=== PATIENT | male | born 1935 | race Caucasian/White ===

== ENCOUNTER 2020-06-29 17:58 | Observation (INO) ==
[2020-06-29] MEDS ORDERED: dilTIAZem HCl 5 MG/ML 5 ML VIAL IV STA (18:31)
[2020-06-29] MEDS ORDERED: STAT IV Infusion **Titration per Protocol STA (18:31)
[2020-06-29] MEDS ORDERED: Heparin IV Adult Wt-Based Low-Dose WITH Bolus Protocol IV STA (18:32)
[2020-06-29] MEDS ORDERED: dilTIAZem HCL 125 MG in DEXTROSE 5% 100 ML IV SCH (18:45)
[2020-06-29] MEDS ORDERED: HEPARIN SODIUM/DEXTROSE 25,000 UNITS/500 ML BAG IV SCH (18:45)
--- NOTE | 2020-06-29 18:50 | Emergency Department Note ---
Impression & Plan Fatigue, Atrial fibrillation with rapid ventricular response ED Provider Note Provider: Greyson Toth MD DATE OF SERVICE: 06/29/2020 CHIEF COMPLAINT: Fatigue HISTORY OF PRESENT ILLNESS: Patient is a 84-year-old gentleman history of CAD with stenting in the 90s, aortic stenosis, hypertension, hyperlipidemia presented today stating he felt very fatigued today. states he barely got out of bed. Patient denies significant chest pain or chest pressure. Does report that his stated he seemed to breathing little bit on overnight but denies severe shortness of breath. Denies significant leg swelling. Denies any abdominal upset or fevers per denies URI symptoms. Denies history of similar symptoms. Patient denies any palpitations symptomatologies. Patient went to his PCPs office and EKG concerning for new onset atrial fibrillation with rapid ventricular response was sent here for further care. Patient states he has no history of A. fib as far as he is aware. Patient takes aspirin 3 times a week he reports. Patient states he initially had some concern that he could have worsening of his underlying aortic stenosis. Denies any falls or trauma. Denies any syncope. Patient follows with Dr. Weaver of cardiology. is otherwise well. He has completed 2 doses of the coronavirus vaccine. REVIEW OF SYSTEMS: A total of 10 review of systems was obtained and negative except as stated above in the HPI. PAST MEDICAL HISTORY: As noted above MEDICATIONS: Reviewed home medications, thrice weekly aspirin SOCIAL HISTORY: Lives at home with PHYSICAL EXAM: GENERAL: alert and oriented in no acute distress on stretcher Head: normocephalic and atraumatic EYES: No injection, discharge or icterus. NECK: Trachea midline. LUNGS: Airway patent. No retractions. Breath sounds clear HEART: Irregularly irregular tachycardic rate and rhythm. No chest wall tender ness ABDOMEN: Soft and non-tender, without guarding or rebound. SKIN: Acyanotic, warm, dry, without rashes EXTREMITIES: Without swelling, tenderness or deformity NEUROLOGICAL: No focal deficits. No aphasia. No facial droop or slurred speech. EK bpm atrial fibrillation with rapid ventricular spots. No PVC noted. No acute ST segment elevation noted. Some V3 through V5 slight T wave milady ening appreciated. QTc 437. CONTINUOUS CARDIAC MONITORING: was ordered and showed a heart rate of 70s- 150s to bpm in atrial fibrillation Patient's laboratory studies and imaging reviewed. Differential includes Premature contractions, electrolyte abnormality, cardiac dysrhythmia, thyroid dysfunction, pulmonary embolism, infection, gastrointestinal, as well as other pathologies. IMPRESSION/MEDICAL DECISION MAKING: Patient with new onset atrial fibrillation. Does not appear to be in compens ated heart failure. Denies significant chest pressure. Denies infectious symptoms. Given some Cardizem and Cardizem drip started. Discussed the patient start on heparin for anticoagulation given stroke risk. Chest x-ray obtained. Doubt this represents aortic dissection or PE. Covid test was completed but low suspicion for this. Unsure of exact etiology of onset of atrial for but this point. Troponin not elevated. No significant thyroid dysfunction or electrolyte abnormalities noted. Chest x-ray question some possible slight pulmonary edema but patient without significant symptoms at this point so will defer acute diuretics at this point. Likely his fatigue symptoms were exacerbat ed by his underlying aortic stenosis with a new onset atrial fibrillation. Will need transitioning to long-term anticoagulation and further cardiac consultation for rate versus rhythm control of his A. fib on long-term manner and further evaluation to see if progression of his aortic stenosis has occurred. Patient may also spontaneously convert out of A. fib with rate control medication here and will be monitored on telemetry in case this occurs. The hospitalist was contacted for further care. Patient was in agreement this plan. DIAGNOSIS: New onset atrial fibrillation with rapid ventricular response DISPOSITION: Hospitalist will evaluate Patient was agreeable with this plan. Critical Care I have personally spent 34 minutes of critical care time in the direct management of this patient. This includes bedside care, interpretation of diagnostic studies, and testing, discussion with consultants, patient, and , and other required patient management activities. These 34 minutes is in excess of all separately billable procedures. Past Med/Surg History Medical History Aortic stenosis gets echo every year to monitor > follows Dr. Weaver Dyslipidemia Gout Myocardial Infarction 1993 > RCA > Atenolol and Lipitor for this Osteoarthritis Prostate cancer 5 yrs ago > radiation Surgical History H/O heart artery stent 1998 > x1 > follows with Dr. Weaver History of colonoscopy History of tooth extraction History of total knee replacement left Family History Brother Colon cancer Social History Smoking Status: Never smoker Second Hand Exposure: No; Hx Alcohol Use: No Hx Substance Use: No Preferred Language: Arabic Communication Ability: Effective Imaging Services Director Required: No Beliefs That Will Affect Care: None Current Living Situation: Spouse Other Information That Helps Us Care for You: No Feels Safe at Home: Yes Safety Concerns: Feels Safe At This Time Assistive Devices: Glasses and Hearing Aid - Bilateral Allergies Allergies Allergy/AdvReac Type Severity Reaction Status Date / Time TIHSA Inhibitors AdvReac Mild COUGH Verified 06/29/20 19:05 Home Meds Home Medications Medication Instructions Recorded Confirmed aspirin [Aspir-81] 81 mg PO 3XWK 06/18/20 06/29/20 atenolol 12.5 mg PO HS 06/18/20 06/29/20 atorvastatin [Lipitor] 40 mg PO HS 06/18/20 06/29/20 indomethacin 25 mg PO DAILY PRN 06/18/20 06/29/20 Results & Data (ED) Vital Signs Vital Signs - 24 hr 06/29/20 18:07 06/29/20 18:19 06/29/20 18:21 Temperature 36.8 C Temperature Source Temporal Artery Scan Pulse Rate 144 H 126 H 134 H Pulse Rate from SpO2 Sensor 131 H 133 H Pulse Rhythm Irregular Respiratory Rate 20 34 H 24 Respiratory Effort / Characteristics Non-Labored Respiratory Depth Normal Blood Pressure 130/80 129/94 Blood Pressure Mean 96 105 Blood Pressure Position Sitting Pulse Oximetry 96 97 97 Oxygen Delivery Method Room Air Room Air Sepsis Recent Fever Within 48 Hours No Sepsis New/Unexplained Change in Mental Status No Sepsis Action Taken by Nursing No Action Required 06/29/20 18:30 06/29/20 18:31 06/29/20 18:43 Temperature Temperature Source Pulse Rate 124 H 123 H Pulse Rate from SpO2 Sensor 116 H 121 H Pulse Rhythm Respiratory Rate 18 13 Respiratory Effort / Characteristics Respiratory Depth Blood Pressure 98/81 L Blood Pressure Mean 86 Blood Pressure Position Pulse Oximetry 96 96 96 Oxygen Delivery Method Room Air Sepsis Recent Fever Within 48 Hours Sepsis New/Unexplained Change in Mental Status Sepsis Action Taken by Nursing 06/29/20 18:45 06/29/20 19:00 06/29/20 19:01 Temperature Temperature Source Pulse Rate 123 H 106 H 117 H Pulse Rate from SpO2 Sensor 122 H 109 H 111 H Pulse Rhythm Respiratory Rate 21 18 15 Respiratory Effort / Characteristics Respiratory Depth Blood Pressure 111/83 Blood Pressure Mean 92 Blood Pressure Position Pulse Oximetry 97 96 96 Oxygen Delivery Method Sepsis Recent Fever Within 48 Hours Sepsis New/Unexplained Change in Mental Status Sepsis Action Taken by Nursing 06/29/20 19:15 06/29/20 19:30 06/29/20 19:31 Temperature Temperature Source Pulse Rate 95 H 92 H 90 Pulse Rate from SpO2 Sensor 105 H 89 90 Pulse Rhythm Respiratory Rate 21 15 13 Respiratory Effort / Characteristics Respiratory Depth Blood Pressure 100/71 Blood Pressure Mean 80 Blood Pressure Position Pulse Oximetry 96 96 96 Oxygen Delivery Method Sepsis Recent Fever Within 48 Hours Sepsis New/Unexplained Change in Mental Status Sepsis Action Taken by Nursing 06/29/20 19:45 06/29/20 20:00 06/29/20 20:01 Temperature Temperature Source Pulse Rate 95 H 98 H 89 Pulse Rate from SpO2 Sensor 100 H 95 H 90 Pulse Rhythm Respiratory Rate 13 14 17 Respiratory Effort / Characteristics Respiratory Depth Blood Pressure 121/70 Blood Pressure Mean 87 Blood Pressure Position Pulse Oximetry 97 95 96 Oxygen Delivery Method Sepsis Recent Fever Within 48 Hours Sepsis New/Unexplained Change in Mental Status Sepsis Action Taken by Nursing 06/29/20 20:15 06/29/20 20:30 06/29/20 20:31 Temperature Temperature Source Pulse Rate 60 66 68 Pulse Rate from SpO2 Sensor 61 67 68 Pulse Rhythm Respiratory Rate 13 17 11 L Respiratory Effort / Characteristics Respiratory Depth Blood Pressure 105/64 Blood Pressure Mean 77 Blood Pressure Position Pulse Oximetry 96 96 96 Oxygen Delivery Method Sepsis Recent Fever Within 48 Hours Sepsis New/Unexplained Change in Mental Status Sepsis Action Taken by Nursing Laboratory Data Result diagrams: 06/29/20 18:53 06/29/20 18:53 Lab Results 06/29/20 06/29/20 06/29/20 Range/Units 18:53 18:53 18:53 WBC 12.12 H (4.8-10.8) K/uL RBC 4.75 (4.7-6.1) M/uL Hgb 14.2 (14.0-18.0) g/dL Hct 42.1 (42-52) % MCV 88.6 (80-100) fL MCH 29.9 (25-34) pg MCHC 33.7 (32-36) g/dL RDW Std Deviation 45.0 (36.4-46.3) fL RDW Coeff of [place] 13.8 (11.5-14.5) % Plt Count 133 (130-400) K/uL MPV 10.2 (7.4-10.4) fL Immature Gran % (Auto) 0.2 % Neut % (Auto) 43.9 % Lymph % (Auto) 48.3 % [place] % (Auto) 7.3 % Eos % (Auto) 0.2 % Baso % (Auto) 0.1 % Neut # (Auto) 5.33 (1.4-6.5) K/uL Lymph # (Auto) 5.85 H (1.2-3.4) K/uL [place] # (Auto) 0.89 H (0.11-0.59) K/uL Eos # (Auto) 0.02 (0-0.5) K/uL Baso # (Auto) 0.01 (0-0.2) K/uL Immature Gran # (Auto) 0.02 (0.00-0.02) K/uL PT 10.9 (9.0-12.0) Seconds INR 1.1 (0.9-1.1) APTT 23.9 (21.0-31.0) Seconds PTT Ratio 0.9 Sodium 141 (136-145) mmol/L Potassium 3.8 (3.5-5.1) mmol/L Chloride 110 H (98-107) mmol/L Carbon Dioxide 25 (21-32) mmol/L Anion Gap 6.0 (3-11) BUN 18 (7-18) mg/dl Creatinine 0.87 (0.6-1.4) mg/dl Est Cr Clr Drug Dosing 69.0 ml/min Est GFR ( Amer) 92.5 Est GFR (Non-Af Amer) 79.8 BUN/Creatinine Ratio 20.5 H (10-20) Glucose 105 H (70-99) mg/dl Calcium 9.2 (8.5-10.1) mg/dl Magnesium 2.0 (1.8-2.4) mg/dl Total Bilirubin 1.2 H (0.2-1) mg/dl AST 12 L (15-37) U/L ALT 19 (12-78) U/L Alkaline Phosphatase 70 (45-117) U/L Troponin I < 0.015 (0-0.045) ng/ml Total Protein 6.4 (6.4-8.2) gm/dl Albumin 3.6 (3.4-5.0) gm/dl Globulin 2.8 (2.5-4.0) gm/dl Albumin/Globulin Ratio 1.3 (0.9-2) TSH 2.140 (0.300-4.500) uIu/ml COVID-19 Eval Order SARS-CoV-2 (PCR) (Negative) Influenza Type A (PCR) (Neg) Influenza Type B (PCR) (Neg) RSV (RT-PCR) (Neg) 06/29/20 06/29/20 Range/Units 20:15 20:15 WBC (4.8-10.8) K/uL RBC (4.7-6.1) M/uL Hgb (14.0-18.0) g/dL Hct (42-52) % MCV (80-100) fL MCH (25-34) pg MCHC (32-36) g/dL RDW Std Deviation (36.4-46.3) fL RDW Coeff of [place] (11.5-14.5) % Plt Count (130-400) K/uL MPV (7.4-10.4) fL Immature Gran % (Auto) % Neut % (Auto) % Lymph % (Auto) % [place] % (Auto) % Eos % (Auto) % Baso % (Auto) % Neut # (Auto) (1.4-6.5) K/uL Lymph # (Auto) (1.2-3.4) K/uL [place] # (Auto) (0.11-0.59) K/uL Eos # (Auto) (0-0.5) K/uL Baso # (Auto) (0-0.2) K/uL Immature Gran # (Auto) (0.00-0.02) K/uL PT (9.0-12.0) Seconds INR (0.9-1.1) APTT (21.0-31.0) Seconds PTT Ratio Sodium (136-145) mmol/L Potassium (3.5-5.1) mmol/L Chloride (98-107) mmol/L Carbon Dioxide (21-32) mmol/L Anion Gap (3-11) BUN (7-18) mg/dl Creatinine (0.6-1.4) mg/dl Est Cr Clr Drug Dosing ml/min Est GFR ( Amer) Est GFR (Non-Af Amer) BUN/Creatinine Ratio (10-20) Glucose (70-99) mg/dl Calcium (8.5-10.1) mg/dl Magnesium (1.8-2.4) mg/dl Total Bilirubin (0.2-1) mg/dl AST (15-37) U/L ALT (12-78) U/L Alkaline Phosphatase (45-117) U/L Troponin I (0-0.045) ng/ml Total Protein (6.4-8.2) gm/dl Albumin (3.4-5.0) gm/dl Globulin (2.5-4.0) gm/dl Albumin/Globulin Ratio (0.9-2) TSH (0.300-4.500) uIu/ml COVID-19 Eval Order [facility]Rsv at [facility] SARS-CoV-2 (PCR) NEGATIVE (Negative) Influenza Type A (PCR) Negative (Neg) Influenza Type B (PCR) Negative (Neg) RSV (RT-PCR) Negative (Neg) Administered Medications Discontinued Medications Diltiazem HCl (Diltiazem Hcl 5 Mg/Ml 5 Ml Vial) 10 mg IV NOW STA Stop: 06/29/20 18:32 Last Admin: 06/29/20 18:57 Dose: 10 mg Documented by: [id number] Cosigned by: [id number] Heparin Sodium (Porcine) (Heparin Sod (Porcine) 1000 Unit/Ml 10 Ml Vial) Confirm Administered Dose 10,000 units .ROUTE .STK-MED ONE Stop: 06/29/20 19:21 Last Admin: 06/29/20 19:24 Dose: 4,000 units Documented by: [id number] Cosigned by: [id number] Heparin Sodium/Dextrose (Heparin Iv Low Dose With Bolus) 1 ea IV NOW STA; Protocol Stop: 06/29/20 18:33 Last Admin: 06/29/20 19:24 Dose: 1 ea Documented by: [id number] Diltiazem HCl 125 mg/ Dextrose 125 mls @ 5 mls/hr IV .Q24H [facility]; Protocol Stop: 07/29/20 18:44 Last Admin: 06/29/20 18:58 Dose: 5 mg/hr, 5 mls/hr Documented by: [id number] Cosigned by: [id number] Heparin Sodium/Dextrose (Heparin Sodium/Dextrose) 25,000 units in 500 mls @ 0.02 mls/hr IV .Q24H [facility]; Protocol Stop: 07/29/20 18:44 Last Admin: 06/29/20 19:23 Dose: 900 units/hr, 18 mls/hr Documented by: [id number] Cosigned by: [id number] Miscellaneous (Stat Iv Infusion Titration Per Protocol) 1 ea N/A NOW STA Stop: 06/29/20 18:32 Last Admin: 06/29/20 21:19 Dose: 1 ea Documented by: [id number] Imaging Data Radiologist's Impression: Chest X-Ray 06/29/20 18:31 XR chest 1V portable HISTORY: new afib, weakness COMPARISON: Chest 05/04/2015. FINDINGS: No pneumothorax. No pleural effusions. The heart is mildly enlarged. There are low lung volumes. There is perihilar interstitial/vascular thickening with hazy airspace opacities within the right upper lobe and left lung base. This could represent pulmonary edema or a viral pneumonia. There is mild elevation of the right hemidiaphragm. IMPRESSION: 1. Mild cardiomegaly. 2. Perihilar interstitial/vascular thickening consistent with mild congestive change. 2. Small hazy airspace opacities within the right upper lobe and left lung base. This could be due to the pulmonary congestion or a viral pneumonia. Follow-up chest x-ray is recommended to ensure resolution ACT 112: Negative or not required by law. Electronically signed by: Art Dang M.D. 06/29/2020 7:14 PM Discharge Plan Visit Data Chief Complaint: Cardiac Assessment Stated Complaint: CARDIAC ISSUE ED Provider: Greyson Toth Discharge Problem: Fatigue, Atrial fibrillation with rapid ventricular response Patient Disposition: Admitted As Inpatient Discharge Instructions Interventions: ED Discharge Assessment Last Done: 06/29/20 22:26 Discharge Problem: Fatigue Qualifiers: Fatigue type: unspecified Qualified Code(s): R53.83 - Other fatigue
[2020-06-29 19:05] LABS: Hematocrit (blood only) 42.1 % (42-52); Hemoglobin 14.2 g/dL (14.0-18.0); Mean Corpuscular Hemoglobin 29.9 pg (25-34); Mean Corpuscular Hgb Conc 33.7 g/dL (32-36); Mean Corpuscular Volume 88.6 fL (80-100); Mean Platelet Volume 10.2 fL (7.4-10.4); Platelet Count 133 K/uL (130-400); RDW Coefficient of Variation 13.8 % (11.5-14.5); Red Blood Count 4.75 M/uL (4.7-6.1); White Blood Count 12.12 K/uL (4.8-10.8)
--- NOTE | 2020-06-29 19:15 | XRay Report ---
XR chest 1V portable HISTORY: new afib, weakness COMPARISON: Chest 05/04/2015. FINDINGS: No pneumothorax. No pleural effusions. The heart is mildly enlarged. There are low lung vol umes. There is perihilar interstitial/vascular thickening with hazy airspace opacities within the rig ht upper lobe and left lung base. This could represent pulmonary edema or a viral pneumonia. There is mild elevation of the right hemidiaphragm. IMPRESSION: 1. Mild cardiomegaly. 2. Perihilar interstitial/vascular thickening consistent with mild congestive change. 2. Small hazy airspace opacities within the right upper lobe and left lung base. This could be due to the pulmonary congestion or a viral pneumonia. Follow-up chest x-ray is recommended to ensure resolu tion ACT 112: Negative or not required by law. Electronically signed by: Art Dang M.D. 06/29/2020 7:14 PM
[2020-06-29] MEDS ORDERED: HEPARIN SOD (PORCINE) 1000 UNIT/ML ONE (19:20)
[2020-06-29 19:21] LABS: Alanine Aminotransferase 19 U/L (12-78); Albumin Level 3.6 gm/dl (3.4-5.0); Aspartate Aminotransferase 12 U/L (15-37); BUN Creatinine Ratio 20.5 (10-20); Blood Urea Nitrogen 18 mg/dl (7-18); Calcium 9.2 mg/dl (8.5-10.1); Carbon Dioxide 25 mmol/L (21-32); Chloride 110 mmol/L (98-107); Est GFR (African American) 92.5; Est GFR (Non-African American) 79.8; Glucose 105 mg/dl (70-99); Potassium 3.8 mmol/L (3.5-5.1); Sodium 141 mmol/L (136-145)
[2020-06-29 19:22] LABS: INR 1.1 (0.9-1.1); Partial Thromboplastin Ratio 0.9; Partial Thromboplastin Time 23.9 Seconds (21.0-31.0); Prothrombin Time 10.9 Seconds (9.0-12.0)
[2020-06-29 19:32] LABS: Albumin Globulin Ratio 1.3 (0.9-2); Alkaline Phosphatase 70 U/L (45-117); Bilirubin,Total 1.2 mg/dl (0.2-1); Globulin 2.8 gm/dl (2.5-4.0); Total Protein 6.4 gm/dl (6.4-8.2); Troponin I < 0.015 ng/ml (0-0.045)
[2020-06-29 19:57] LABS: Basophils # (auto) 0.01 K/uL (0-0.2); Basophils % (auto) 0.1 %; Eosinophils # (auto) 0.02 K/uL (0-0.5); Eosinophils % (auto) 0.2 %; Immature Granulocytes # (auto) 0.02 K/uL (0.00-0.02); Immature Granulocytes % (auto) 0.2 %; Lymphocytes # (auto) 5.85 K/uL (1.2-3.4); Lymphocytes % (auto) 48.3 %; Monocytes # (auto) 0.89 K/uL (0.11-0.59); Monocytes % (auto) 7.3 %; Neutrophils # (auto) 5.33 K/uL (1.4-6.5); Neutrophils % (auto) 43.9 %
[2020-06-29 21:11] LABS: Influenza A virus by PCR Negative (Neg); Influenza B virus by PCR Negative (Neg); RSV by PCR Negative (Neg); SARS CoV2 RNA(COVID-19) InHosp NEGATIVE (Negative)
--- NOTE | 2020-06-29 21:44 | History and Physical Report ---
DATE OF ADMISSION: 06/29/2020 CHIEF COMPLAINT: Shortness of breath and weakness, rapid atrial fibrillation. HISTORY OF PRESENT ILLNESS: This is an 84-year-old male with past medical history significant for hyperlipidemia, CAD, moderate aortic valve stenosis, bicuspid aortic valve, gout, osteoarthritis, history of prostate cancer, presents with shortness of breath and weakness starting today. The patient was feeling weak and when he was ambulating, he got short of breath and lightheaded. So came to the hospital and found to be in rapid atrial fibrillation. In the ER, patient was started on Cardizem drip and heparin and currently converted back to sinus rhythm. Denies any chest pain. No cough, no fever, no chills, no headache, no blurred vision, no runny nose, no sore throat, no loss of sense of smell or taste. Appetite is okay. No nausea, no abdominal pain. Normal bowel and bladder movements. No swelling in the legs. Currently resting comfortably and hemodynamically stable. The patient was done with COVID shots in April. ALLERGIES: TISHA INHIBITORS. PAST MEDICAL HISTORY: As mentioned above. PAST SURGICAL HISTORY: Cardiac stent placement, colonoscopy, needle punch biopsy of prostate. MEDICATIONS: The patient is on aspirin 81 mg p.o. 3 times a week, atenolol 12.5 mg p.o. at bedtime, Lipitor 40 mg p.o. at bedtime, indomethacin 25 mg p.o. daily p.r.n. FAMILY HISTORY: Significant for brother has colon cancer. Maternal grandmother had colon cancer. Mother had cancer and heart disorder. Father had diabetes and heart disorder. Brother has depression, lung disorder. SOCIAL HISTORY: . Former smoker, quit in 1971, no drug use. REVIEW OF SYMPTOMS: As per HPI. Rest of review of systems negative. PHYSICAL EXAMINATION: GENERAL: The patient is of moderate build, not in acute distress. VITAL SIGNS: Temperature 36.8, pulse 140s when he came in, currently 60s, blood pressure 121/70, respiratory rate 13, oxygen 96% room air. HEENT: Pupils equal, round, reactive to light. Oral mucosa moist. NECK: No JVD, no neck masses. CARDIOVASCULAR: S1, S2, regular rate and rhythm, no murmur, no gallop. RESPIRATORY SYSTEM: Normal AP diameter. No accessory muscle use. No wheezing, no crackles. ABDOMEN: Soft, bowel sounds present, nontender. No distention. CENTRAL NERVOUS SYSTEM: Cranial nerves II-XII grossly intact. Nonfocal. EXTREMITIES: No edema, no erythema. LABORATORY DATA: WBC 12, hemoglobin 14.2, hematocrit 42.1, platelets 133. PT 10.9, INR 1.1, APTT 23.9. Sodium 141, potassium 3.8, chloride 110, bicarbonate 25, BUN 18, creatinine 0.8, serum glucose 105, calcium 9.2, magnesium 2, total bilirubin 1.2, AST 12, ALT 19, alkaline phosphatase 70. Troponin I less than 0.015. TSH is 2.4. IMAGING: Chest x-ray, mild cardiomegaly, perihilar, interstitial, vascular thickening consistent with mild congestive changes, small hazy air space opacity of the right upper lobe and left lung base, this could be due to pulmonary congestion or viral pneumonia. Followup chest x-ray is recommended. EKG: AFib with rapid ventricular response at rate of 121, no acute ST changes seen. ASSESSMENT AND PLAN: This is an 84-year-old male who presents shortness of breath, weakness and found to have rapid afib. 1. Rapid atrial fibrillation. ER started on iv heparin and Cardizem drip. Currently, converted back to sinus rhythm. We will continue the heparin and stop Cardizem.. Will place on IV Lopressor p.r.n. Continue his home atenolol. We will follow serial enzymes, echocardiogram, and consult cardiology in a.m. for further recommendations. 2. History of coronary artery disease status post stent, on aspirin, atenolol and statin. 3. History of gout, on indomethacin p.r.n. 4. History of hyperlipidemia, on statin. 5. Leukocytosis. Chest x-ray, questionable pneumonia. No ough. No fever. Possible pneumonia on ct chest preliminary report. Started on Rocephin and Doxycycline. 6. History of prostate cancer status post radiation treatment. Follow up with Urology and Radiation Oncology. 7. Deep venous thrombosis prophylaxis, on IV heparin. DISPOSITION: Closely monitor in the tele floor. Level 1 full code. Expect discharge home and follow with family doctor. Social service to help with discharge planning. [facility]ITALEl[facility]
[2020-06-29] MEDS ORDERED: METOPROLOL TARTRATE 1 MG/ML VIAL IV PRN (22:36)
[2020-06-29] MEDS ORDERED: POLYETHYLENE (MIRALAX) 17 GM PACK PO PRN (22:36)
[2020-06-29] MEDS ORDERED: ACETAMINOPHEN 325 MG TAB PO PRN (22:36)
[2020-06-29] MEDS ORDERED: Heparin IV Adult Wt-Based Standard *NO* Bolus Protocol IV ONE (22:36)
[2020-06-29] MEDS ORDERED: NITROGLYCERIN SL 0.4 MG/TAB TAB SL PRN (22:36)
[2020-06-29] MEDS ORDERED: ATORVASTATIN 40 MG TAB PO SCH (22:36)
[2020-06-29] MEDS ORDERED: ATENOLOL 25 MG TABLET PO SCH (22:36)
[2020-06-29] MEDS: HEPARIN SODIUM/DEXTROSE 25,000 UNITS/500 ML BAG IV SCH (23:24)
[2020-06-30] MEDS ORDERED: cefTRIAXone SODIUM 2,000 MG in DEXTROSE 5% 50 ML IV SCH (02:00)
[2020-06-30] MEDS: DOXYCYCLINE HYCLATE 100 MG in DEXTROSE 5% 100 ML IV SCH ×2 (03:03→15:27)
[2020-06-30 05:53] LABS: Hematocrit (blood only) 36.8 % (42-52); Hemoglobin 12.5 g/dL (14.0-18.0); Mean Corpuscular Hemoglobin 30.3 pg (25-34); Mean Corpuscular Volume 89.1 fL (80-100); Mean Platelet Volume 10.1 fL (7.4-10.4); Platelet Count 121 K/uL (130-400); RDW Standard Deviation 45.6 fL (36.4-46.3); Red Blood Count 4.13 M/uL (4.7-6.1); White Blood Count 9.77 K/uL (4.8-10.8)
[2020-06-30 06:12] LABS: Partial Thromboplastin Ratio 2.1
[2020-06-30 06:28] LABS: BUN Creatinine Ratio 21.9 (10-20); Calcium 8.2 mg/dl (8.5-10.1); Creatinine Clr Calc Pharmacy 76.5 ml/min; Est GFR (African American) 95.7; Est GFR (Non-African American) 82.6; Potassium 3.7 mmol/L (3.5-5.1)
[2020-06-30 07:19] LABS: Basophils # (auto) 0.01 K/uL (0-0.2); Basophils % (auto) 0.1 %; Eosinophils # (auto) 0.04 K/uL (0-0.5); Eosinophils % (auto) 0.4 %; Immature Granulocytes # (auto) 0.01 K/uL (0.00-0.02); Immature Granulocytes % (auto) 0.1 %; Lymphocytes # (auto) 6.25 K/uL (1.2-3.4); Monocytes # (auto) 0.47 K/uL (0.11-0.59); Monocytes % (auto) 4.8 %; Neutrophils # (auto) 2.99 K/uL (1.4-6.5); Neutrophils % (auto) 30.6 %; RBC Morphology Unremarkable
--- NOTE | 2020-06-30 08:06 | CT Scan Report ---
CT SCAN OF THE CHEST WITHOUT IV CONTRAST CLINICAL HISTORY: Dyspnea. COMPARISON STUDY: Chest x-ray dated 06/29/2020. TECHNIQUE: CT scan of the thorax was performed from the thoracic inlet to the upper abdomen. Images are reviewed in the axial, sagittal, and coronal planes. IV contrast was not administered for this ex amination as per the referring clinician. A dose lowering technique was utilized ad[facility] DOSE: 463.61 mGy.cm FINDINGS: Thyroid: Imaged portions of the thyroid gland are normal in size and attenuation. Thoracic aorta: There is atherosclerotic calcification of the thoracic aorta, which is normal in willie french and demonstrates standard 3-vessel arch anatomy. Heart: The heart is enlarged noting a moderate pericardial effusion. The coronary arteries are densel y calcified. Pulmonary trunk is dilated measuring 4.1 cm in diameter. This suggests pulmonary artery hypertension. Lungs and pleural spaces: Mild emphysematous change is noted throughout both lungs. There is diffuse intralobular septal thickening. Patchy groundglass consolidation is seen in the right upper and right lower lobes. No pleural effusion is identified. The trachea and central airways are clear. There are scattered calcified granulomas. Mediastinum: There is no mediastinal lymphadenopathy. Melissa: There are calcified left hilar lymph nodes. The melissa are not well assessed without IV contrast. Axillae: There is no axillary lymphadenopathy. Upper abdomen: There is a small hiatal hernia. The spleen is enlarged measuring at least 16 cm in [address] gth. There are scattered calcified splenic granulomas. There is ectasia of the celiac artery which me asures up to 12 mm. Skeletal structures: The skeletal structures are osteopenic. Degenerative change and hyperkyphosis is noted in the thoracic spine. Advanced spondylotic change is partially imaged in the lower cervical s pine. Arthritic change is noted in the shoulders. No lytic or blastic bony lesions are seen. IMPRESSION: 1. Emphysema. 2. Patchy groundglass consolidation is seen throughout the right upper and right lower lobes. This is typical in appearance for an infectious/inflammatory pneumonitis. Clinical correlation will be requi red and radiographic follow-up to resolution is recommended. 3. Cardiomegaly and moderate pericardial effusion. 4. Mild diffuse intralobular septal thickening suggests acute versus chronic congestive change and cl inical correlation will be required. 5. Marked splenomegaly. 6. Additional findings as above. ACT 112: Negative or not required by law. Electronically signed by: Krzysztof Tapia M.D. 06/30/2020 8:05 AM
[2020-06-30] MEDS ORDERED: ASPIRIN 81 MG ECTAB PO SCH (09:00)
--- NOTE | 2020-06-30 09:58 | Cardiology Consultation ---
Date of Consultation June 30, 2020 Assessment & Plan (1) Paroxysmal atrial fibrillation with rapid ventricular response: Patient is a an 84-year-old male followed routinely for moderate calcific aortic stenosis superimposed on bicuspid aortic valve, chronic stable ischemic heart disease, hypertension who presents with newly observed atrial fibrillation with rapid response symptomatic with exertional dyspnea. Episode may have been precipitated by pulmonary issue with abnormal CT scan suggestive of pneumonia. Patient has spontaneously converted back to sinus rhythm. No signs of myocardial ischemia by enzyme or EKG. Exam not consistent with congestive heart Echocardiogram essentially stable from prior studies with moderate aortic stenosis and preserved LV systolic function. The right ventricle was upper limits of normal in size with borderline elevation in pulmonary pressures Recommendations: Atenolol was recently reduced due to bradycardia arrhythmias. We will switch to metoprolol succinate at 12.5 mg twice per day initially Patient was appropriately anticoagulated with IV heparin with switch to Eliquis for long-term management patient with elevated chads vas 2 score of at least 4. Treatment of possible pulmonary infiltrate pneumonia to be discerned by primary service. Exam not consistent with congestive heart failure. Thromboembolic disease would be covered by current therapies. As noted may represent inciting cause though no hypoxia observed. (2) Chronic ischemic heart disease: (3) Bicuspid aortic valve: (4) Moderate aortic stenosis: History of Present Illness Reason for Consultation: Paroxysmal atrial fibrillation Requesting Physician: Dr. Cortés Attending Physician: Dejah Cortés, DO History of Present Illness Patient is an 84-year-old male with ongoing prior issues which include 1. Atherosclerotic coronary disease status post acute inferior wall myocardial infarction in 1993 with notable 100% RCA occlusion. He subsequently underwent repeat cardiac catheterization in 1998 after abnormal stress testing and underwent bare metal stenting to the circumflex obtuse marginal branch as well as PTCA of a recanalized mid right coronary artery. He notably had a residual 30% LAD. 2. Mild to Moderate aortic stenosis with functionally bicuspid aortic valve 3. Hyperlipidemia. 4. Prostate carcinoma s/p radiation therapy. 5. Gouty arthropathy. Patient presents having been admitted last evening after visit to her primary care physician with complaints of weakness fatigue and shortness of breath. EKG demonstrated atrial fibrillation with rapid response. Patient was seen in the emergency room and begun on treatment with spontaneous conversion to sinus rhythm overnight. He is currently without complaint. Does feel he has been chilled and more short of breath recently. Chest x-ray/CAT scan of the chest suggest possible pneumonia He denies fevers chills currently notes no chest pains, tachypalpitations, orthopnea. Has been taking medications as prescribed. No dizziness or lightheadedness. No bleeding difficulties. Appetite and weight have been generally stable. No sleep disturbances. Allergies Allergy/AdvReac Type Severity Reaction Status Date / Time TISHA Inhibitors AdvReac Mild COUGH Verified 06/29/20 19:05 Home Medications Medication Instructions Recorded Confirmed Type aspirin [Aspir-81] 81 mg PO 3XWK 06/18/20 06/29/20 History atenolol 12.5 mg PO HS 06/18/20 06/29/20 History atorvastatin [Lipitor] 40 mg PO HS 06/18/20 06/29/20 History indomethacin 25 mg PO DAILY PRN 06/18/20 06/29/20 History Patient History Medical History Aortic stenosis gets echo every year to monitor > follows Dr. Weaver Dyslipidemia Gout Myocardial Infarction 1993 > RCA > Atenolol and Lipitor for this Osteoarthritis Prostate cancer 5 yrs ago > radiation Surgical History H/O heart artery stent 1998 > x1 > follows with Dr. Weaver History of colonoscopy History of tooth extraction History of total knee replacement left Family History Brother Colon cancer Social History Smoking Status: Never smoker Second Hand Exposure: No; Hx Alcohol Use: No Hx Substance Use: No Preferred Language: Portuguese Communication Ability: Effective Packing Supervisor Required: No Beliefs That Will Affect Care: None Current Living Situation: Spouse Other Information That Helps Us Care for You: No Feels Safe at Home: Yes Safety Concerns: Feels Safe At This Time Assistive Devices: Glasses and Hearing Aid - Bilateral Review of Systems Review of Systems: All systems reviewed & are unremarkable except as noted in HPI & below Physical Exam Constitutional: WD/WN, vitals as above no acute distress Eyes: PERRL, conjunctivae normal, anicteric sclerae ENMT: external ear and nose normal, oropharynx normal Neck: trachea midline, no thyromegaly Respiratory: normal respiratory effort, lungs clear to auscultation Cardiovascular: Rate/Rhythm: regular rate and regular rhythm Heart Sounds: normal S1, normal S2 and + murmur (Grade 2/6 systolic murmur no diastolic murmur); no gallop Palpation: normal PMI Vessels: normal carotid upstroke and radial pulses present; no JVD and no carotid bruit Extremities: no edema Gastrointestinal (Abdomen): normal bowel sounds, soft, nontender, no hepatosplenomegaly Musculoskeletal: no cyanosis or clubbing, extremities motor strength 5/5 Skin: no rashes, warm and dry Neurologic: PERRL, EOMI, accommodation nl, no face palsy, no dysarthria Psychiatric: A+Ox3, euthymic affect Results & Data ([facility]) Vital Signs (Past 12 Hours) Vital Signs Temp Pulse Resp BP Pulse Ox 06/30/20 07:43 36.9 C 63 18 111/71 96 06/30/20 03:12 36.3 C L 66 18 96/58 L 96 Laboratory Results Laboratory Results - last 24 hr 06/29/20 06/29/20 06/29/20 18:53 18:53 18:53 WBC 12.12 H RBC 4.75 Hgb 14.2 Hct 42.1 MCV 88.6 MCH 29.9 MCHC 33.7 RDW Std Deviation 45.0 RDW Coeff of [place] 13.8 Plt Count 133 MPV 10.2 Immature Gran % (Auto) 0.2 Neut % (Auto) 43.9 Lymph % (Auto) 48.3 [place] % (Auto) 7.3 Eos % (Auto) 0.2 Baso % (Auto) 0.1 Neut # (Auto) 5.33 Lymph # (Auto) 5.85 H [place] # (Auto) 0.89 H Eos # (Auto) 0.02 Baso # (Auto) 0.01 Immature Gran # (Auto) 0.02 RBC Morphology PT 10.9 INR 1.1 APTT 23.9 PTT Ratio 0.9 Sodium 141 Potassium 3.8 Chloride 110 H Carbon Dioxide 25 Anion Gap 6.0 BUN 18 Creatinine 0.87 Est Cr Clr Drug Dosing 69.0 Est GFR ( Amer) 92.5 Est GFR (Non-Af Amer) 79.8 BUN/Creatinine Ratio 20.5 H Glucose 105 H Calcium 9.2 Magnesium 2.0 Total Bilirubin 1.2 H AST 12 L ALT 19 Alkaline Phosphatase 70 Troponin I < 0.015 Total Protein 6.4 Albumin 3.6 Globulin 2.8 Albumin/Globulin Ratio 1.3 Procalcitonin TSH 2.140 COVID-19 Eval Order SARS-CoV-2 (PCR) Influenza Type A (PCR) Influenza Type B (PCR) RSV (RT-PCR) 06/29/20 06/29/20 06/30/20 20:15 20:15 05:40 WBC RBC Hgb Hct MCV MCH MCHC RDW Std Deviation RDW Coeff of [place] Plt Count MPV Immature Gran % (Auto) Neut % (Auto) Lymph % (Auto) Burnett % (Auto) Eos % (Auto) Baso % (Auto) Neut # (Auto) Lymph # (Auto) [place] # (Auto) Eos # (Auto) Baso # (Auto) Immature Gran # (Auto) RBC Morphology PT INR APTT 55.0 H* PTT Ratio 2.1 Sodium Potassium Chloride Carbon Dioxide Anion Gap BUN Creatinine Est Cr Clr Drug Dosing Est GFR ( Amer) Est GFR (Non-Af Amer) BUN/Creatinine Ratio Glucose Calcium Magnesium Total Bilirubin AST ALT Alkaline Phosphatase Troponin I Total Protein Albumin Globulin Albumin/Globulin Ratio Procalcitonin TSH COVID-19 Eval Order CovFluRsv at [facility] SARS-CoV-2 (PCR) NEGATIVE Influenza Type A (PCR) Negative Influenza Type B (PCR) Negative RSV (RT-PCR) Negative 06/30/20 06/30/20 06/30/20 05:40 05:40 05:40 WBC 9.77 RBC 4.13 L Hgb 12.5 L Hct 36.8 L MCV 89.1 MCH 30.3 MCHC 34.0 RDW Std Deviation 45.6 RDW Coeff of [place] 14.0 Plt Count 121 L MPV 10.1 Immature Gran % (Auto) 0.1 Neut % (Auto) 30.6 Lymph % (Auto) 64.0 Burnett % (Auto) 4.8 Eos % (Auto) 0.4 Baso % (Auto) 0.1 Neut # (Auto) 2.99 Lymph # (Auto) 6.25 H Burnett # (Auto) 0.47 Eos # (Auto) 0.04 Baso # (Auto) 0.01 Immature Gran # (Auto) 0.01 RBC Morphology Unremarkable PT INR APTT PTT Ratio Sodium 142 Potassium 3.7 Chloride 110 H Carbon Dioxide 29 Anion Gap 3.0 BUN 18 Creatinine 0.80 Est Cr Clr Drug Dosing 76.5 Est GFR ( Amer) 95.7 Est GFR (Non-Af Amer) 82.6 BUN/Creatinine Ratio 21.9 H Glucose 112 H Calcium 8.2 L Magnesium 2.0 Total Bilirubin AST ALT Alkaline Phosphatase Troponin I < 0.015 Total Protein Albumin Globulin Albumin/Globulin Ratio Procalcitonin TSH COVID-19 Eval Order SARS-CoV-2 (PCR) Influenza Type A (PCR) Influenza Type B (PCR) RSV (RT-PCR) 06/30/20 06/30/20 08:17 10:48 WBC RBC Hgb Hct MCV MCH MCHC RDW Std Deviation RDW Coeff of [place] Plt Count MPV Immature Gran % (Auto) Neut % (Auto) Lymph % (Auto) [place] % (Auto) Eos % (Auto) Baso % (Auto) Neut # (Auto) Lymph # (Auto) Burnett # (Auto) Eos # (Auto) Baso # (Auto) Immature Gran # (Auto) RBC Morphology PT INR APTT PTT Ratio Sodium Potassium Chloride Carbon Dioxide Anion Gap BUN Creatinine Est Cr Clr Drug Dosing Est GFR ( Amer) Est GFR (Non-Af Amer) BUN/Creatinine Ratio Glucose Calcium Magnesium Total Bilirubin AST ALT Alkaline Phosphatase Troponin I < 0.015 Total Protein Albumin Globulin Albumin/Globulin Ratio Procalcitonin < 0.05 TSH COVID-19 Eval Order SARS-CoV-2 (PCR) Influenza Type A (PCR) Influenza Type B (PCR) RSV (RT-PCR)
--- NOTE | 2020-06-30 14:23 | Electrocardiogram Report ---
Test Reason : Blood Pressure : / mmHG Vent. Rate : 121 BPM Atrial Rate : 122 BPM P-R Int : 000 ms QRS Dur : 096 ms QT Int : 308 ms P-R-T Axes : 000 032 036 degrees QTc Int : 437 ms Atrial fibrillation with rapid ventricular response Abnormal ECG No previous ECGs available Confirmed by Christopher Owusu ([id number]) on 06/30/2020 2:23:22 PM Referred By: Rahul Post Confirmed By:Hans Owusu
--- NOTE | 2020-06-30 14:31 | Hospitalist Progress Note ---
Date of Service June 30, 2020 Assessment & Plan Admission and Anticipated Discharge Date Admission Date: June 29, 2020 Results & Data Results & Data ([facility]) Vital Signs (Past 12 Hours) Vital Signs Temp Pulse Resp BP BP Pulse Ox 06/30/20 11:40 36.7 C 63 18 120/73 96 06/30/20 07:43 36.9 C 63 18 111/71 96 06/30/20 03:12 36.3 C L 66 18 96/58 L 96 Laboratory Results Short CBC 06/29/20 06/30/20 Range/Units 18:53 05:40 WBC 12.12 H 9.77 (4.8-10.8) K/uL Hgb 14.2 12.5 L (14.0-18.0) g/dL Hct 42.1 36.8 L (42-52) % Plt Count 133 121 L (130-400) K/uL BMP 06/29/20 06/30/20 18:53 05:40 Sodium 141 142 Potassium 3.8 3.7 Chloride 110 H 110 H Carbon Dioxide 25 29 BUN 18 18 Creatinine 0.87 0.80 Glucose 105 H 112 H Calcium 9.2 8.2 L Cardiac Enzymes 06/29/20 06/30/20 06/30/20 Range/Units 18:53 05:40 10:48 Troponin I < 0.015 < 0.015 < 0.015 (0-0.045) ng/ml Liver Function 06/29/20 Range/Units 18:53 Total Bilirubin 1.2 H (0.2-1) mg/dl AST 12 L (15-37) U/L ALT 19 (12-78) U/L Alkaline Phosphatase 70 (45-117) U/L Albumin 3.6 (3.4-5.0) gm/dl Medications Administered Current Inpatient Medications Acetaminophen (Acetaminophen 325 Mg Tab) 650 mg PO Q4H PRN PRN Reason: Pain or Fever Stop: 07/29/20 22:35 Aspirin (Aspirin 81 Mg Ectab) 81 mg PO [id number] [facility] Stop: 07/30/20 08:59 Last Admin: 06/30/20 08:39 Dose: 81 mg Documented by: Atorvastatin Calcium (Atorvastatin 40 Mg Tab) 40 mg PO HS [place] Stop: 07/29/20 22:35 Last Admin: 06/30/20 00:42 Dose: 40 mg Documented by: Heparin Sodium/Dextrose (Heparin Sodium/Dextrose) 25,000 units in 500 mls @ 28 mls/hr IV .[id number] [facility]; Protocol Stop: 07/29/20 22:35 Last Titration: 06/30/20 06:46 Dose: 1,400 units/hr, 28 mls/hr Documented by: Ceftriaxone Sodium 2,000 mg/ (Dextrose) 70 mls @ 100 mls/hr IV Q24H [facility]; Protocol Stop: 07/07/20 01:59 Last Infusion: 06/30/20 03:03 Dose: Infused Documented by: Doxycycline Hyclate 100 mg/ (Dextrose) 110 mls @ 50 mls/hr IV Q12H [facility] Stop: 07/07/20 02:59 Last Infusion: 06/30/20 06:46 Dose: Infused Documented by: Metoprolol Succinate (Metoprolol Succ 25mg Ext Rel Tab) 12.5 mg PO QPM [facility] Stop: 07/30/20 20:59 Metoprolol Tartrate (Metoprolol Tartrate 1 Mg/Ml Vial) 5 mg IV Q6 PRN PRN Reason: Tachycardia Stop: 07/29/20 22:35 Nitroglycerin (Nitroglycerin Sl 0.4 Mg/Tab Tab) 0.4 mg SL UD PRN PRN Reason: Chest Pain Stop: 07/29/20 22:35 Polyethylene Glycol (Polyethylene (Miralax) 17 Gm Pack) 17 gm PO DAILY PRN PRN Reason: Constipation Stop: 07/29/20 22:35
--- NOTE | 2020-06-30 15:20 | Electrocardiogram Report ---
Test Reason : Blood Pressure : / mmHG Vent. Rate : 060 BPM Atrial Rate : 060 BPM P-R Int : 172 ms QRS Dur : 102 ms QT Int : 492 ms P-R-T Axes : 054 000 071 degrees QTc Int : 492 ms Sinus rhythm with occasional Premature ventricular complexes Incomplete right bundle branch block Possible Inferior infarct (cited on or before 29-JUN-2020) Abnormal ECG When compared with ECG of 29-JUN-2020 18:17, (unconfirmed) Sinus rhythm has replaced Atrial fibrillation Vent. rate has decreased BY 61 BPM Incomplete right bundle branch block is now Present Confirmed by Christopher Owusu ([id number]) on 06/30/2020 3:20:07 PM Referred By: Rahul Post Confirmed By:Hans Owusu
[2020-06-30] MEDS: HEPARIN SODIUM/DEXTROSE 25,000 UNITS/500 ML BAG IV SCH (15:23)
[2020-06-30] MEDS ORDERED: APIXABAN 5 MG TABLET PO STA (17:48)
--- NOTE | 2020-06-30 17:56 | Discharge Summary ---
Date of Service June 30, 2020 Admission HPI Per Admitting Provider HISTORY OF PRESENT ILLNESS: This is an 84-year-old male with past medical history significant for hyperlipidemia, CAD, moderate aortic valve stenosis, bicuspid aortic valve, gout, osteoarthritis, history of prostate cancer, presents with shortness of breath and weakness starting today. The patient was feeling weak and when he was ambulating, he got short of breath and lightheaded. So came to the hospital and found to be in rapid atrial fibrillation. In the ER, patient was started on Cardizem drip and heparin and currently converted back to sinus rhythm. Denies any chest pain. No cough, no fever, no chills, no headache, no blurred vision, no runny nose, no sore throat, no loss of sense of smell or taste. Appetite is okay. No nausea, no abdominal pain. Normal bowel and bladder movements. No swelling in the legs. Currently resting comfortably and hemodynamically stable. The patient was done with COVID shots in April. Admission Exam Per Admitting Provider PHYSICAL EXAMINATION: GENERAL: The patient is of moderate build, not in acute distress. VITAL SIGNS: Temperature 36.8, pulse 140s when he came in, currently 60s, blood pressure 121/70, respiratory rate 13, oxygen 96% room air. HEENT: Pupils equal, round, reactive to light. Oral mucosa moist. NECK: No JVD, no neck masses. CARDIOVASCULAR: S1, S2, regular rate and rhythm, no murmur, no gallop. RESPIRATORY SYSTEM: Normal AP diameter. No accessory muscle use. No wheezing, no crackles. ABDOMEN: Soft, bowel sounds present, nontender. No distention. CENTRAL NERVOUS SYSTEM: Cranial nerves II-XII grossly intact. Nonfocal. EXTREMITIES: No edema, no erythema. Principal Diagnosis Community-acquired pneumonia Paroxysmal atrial fibrillation with rapid ventricular response Discharge Exam CONSTITUTIONAL: WNWD, vitals stable, oxygenating well on room air, generally well-appearing EYES: normal conjunctivae, no scleral icterus ENT: external ear and nose normal, MMM RESPIRATORY: fine crackles to left lower lobe on auscultation, no rales or wheezes, normal respiratory effort CARDIOVASCULAR: regular rate and rhythm, 3/6 MARIAELENA at left sternal border heard on auscultation, no gallops or rubs, no JVD, no peripheral edema GASTROINTESTINAL: soft, nontender, nondistended. MUSCULOSKELETAL: strength 5/5 throughout, head is normocephalic and atraumatic SKIN: warm and dry NEUROLOGIC: CN 2-12 grossly intact, normal cognition, normal speech, no tremor, no gross focal deficits. PSYCHIATRIC: alert cooperative and oriented to person, place and time. Discharge Data Allergies Allergy/AdvReac Type Severity Reaction Status Date / Time TISHA Inhibitors AdvReac Mild COUGH Verified 06/29/20 19:05 Consultations 06/29/20 19:56 ED Decision to Admit Stat 06/30/20 08:00 Consult Cardiology Routine Ordered Studies Laboratory Results WBC 9.77 K/uL (4.8-10.8) 06/30/20 05:40 RBC 4.13 M/uL (4.7-6.1) L 06/30/20 05:40 Hgb 12.5 g/dL (14.0-18.0) L 06/30/20 05:40 Hct 36.8 % (42-52) L 06/30/20 05:40 MCV 89.1 fL (80-100) 06/30/20 05:40 MCH 30.3 pg (25-34) 06/30/20 05:40 MCHC 34.0 g/dL (32-36) 06/30/20 05:40 RDW Std Deviation 45.6 fL (36.4-46.3) 06/30/20 05:40 RDW Coeff of [place] 14.0 % (11.5-14.5) 06/30/20 05:40 Plt Count 121 K/uL (130-400) L 06/30/20 05:40 MPV 10.1 fL (7.4-10.4) 06/30/20 05:40 Immature Gran % (Auto) 0.1 % 06/30/20 05:40 Neut % (Auto) 30.6 % 06/30/20 05:40 Lymph % (Auto) 64.0 % 06/30/20 05:40 [place] % (Auto) 4.8 % 06/30/20 05:40 Eos % (Auto) 0.4 % 06/30/20 05:40 Baso % (Auto) 0.1 % 06/30/20 05:40 Neut # (Auto) 2.99 K/uL (1.4-6.5) 06/30/20 05:40 Lymph # (Auto) 6.25 K/uL (1.2-3.4) H 06/30/20 05:40 [place] # (Auto) 0.47 K/uL (0.11-0.59) 06/30/20 05:40 Eos # (Auto) 0.04 K/uL (0-0.5) 06/30/20 05:40 Baso # (Auto) 0.01 K/uL (0-0.2) 06/30/20 05:40 Immature Gran # (Auto) 0.01 K/uL (0.00-0.02) 06/30/20 05:40 RBC Morphology Unremarkable 06/30/20 05:40 PT 10.9 Seconds (9.0-12.0) 06/29/20 18:53 INR 1.1 (0.9-1.1) 06/29/20 18:53 APTT 55.0 Seconds (21.0-31.0) H* 06/30/20 05:40 PTT Ratio 2.1 06/30/20 05:40 Sodium 142 mmol/L (136-145) 06/30/20 05:40 Potassium 3.7 mmol/L (3.5-5.1) 06/30/20 05:40 Chloride 110 mmol/L (98-107) H 06/30/20 05:40 Carbon Dioxide 29 mmol/L (21-32) 06/30/20 05:40 Anion Gap 3.0 (3-11) 06/30/20 05:40 BUN 18 mg/dl (7-18) 06/30/20 05:40 Creatinine 0.80 mg/dl (0.6-1.4) 06/30/20 05:40 Est Cr Clr Drug Dosing 76.5 ml/min 06/30/20 05:40 Est GFR ( Amer) 95.7 06/30/20 05:40 Est GFR (Non-Af Amer) 82.6 06/30/20 05:40 BUN/Creatinine Ratio 21.9 (10-20) H 06/30/20 05:40 Glucose 112 mg/dl (70-99) H 06/30/20 05:40 Calcium 8.2 mg/dl (8.5-10.1) L 06/30/20 05:40 Magnesium 2.0 mg/dl (1.8-2.4) 06/30/20 05:40 Total Bilirubin 1.2 mg/dl (0.2-1) H 06/29/20 18:53 AST 12 U/L (15-37) L 06/29/20 18:53 ALT 19 U/L (12-78) 06/29/20 18:53 Alkaline Phosphatase 70 U/L (45-117) 06/29/20 18:53 Troponin I < 0.015 ng/ml (0-0.045) 06/30/20 10:48 Total Protein 6.4 gm/dl (6.4-8.2) 06/29/20 18:53 Albumin 3.6 gm/dl (3.4-5.0) 06/29/20 18:53 Globulin 2.8 gm/dl (2.5-4.0) 06/29/20 18:53 Albumin/Globulin Ratio 1.3 (0.9-2) 06/29/20 18:53 Procalcitonin < 0.05 ng/ml (0-0.5) 06/30/20 08:17 TSH 2.140 uIu/ml (0.300-4.500) 06/29/20 18:53 COVID-19 Eval Order CovFluRsv at [facility] 06/29/20 20:15 SARS-CoV-2 (PCR) NEGATIVE (Negative) 06/29/20 20:15 Influenza Type A (PCR) Negative (Neg) 06/29/20 20:15 Influenza Type B (PCR) Negative (Neg) 06/29/20 20:15 RSV (RT-PCR) Negative (Neg) 06/29/20 20:15 Impressions Chest X-Ray 06/29/20 18:31 XR chest 1V portable HISTORY: new afib, weakness COMPARISON: Chest 05/04/2015. FINDINGS: No pneumothorax. No pleural effusions. The heart is mildly enlarged. There are low lung volumes. There is perihilar interstitial/vascular thickening with hazy airspace opacities within the right upper lobe and left lung base. This could represent pulmonary edema or a viral pneumonia. There is mild elevation of the right hemidiaphragm. IMPRESSION: 1. Mild cardiomegaly. 2. Perihilar interstitial/vascular thickening consistent with mild congestive change. 2. Small hazy airspace opacities within the right upper lobe and left lung base. This could be due to the pulmonary congestion or a viral pneumonia. Follow-up chest x-ray is recommended to ensure resolution ACT 112: Negative or not required by law. Electronically signed by: Art Dang M.D. 06/29/2020 7:[address] 06/29/20 20:40 CT SCAN OF THE CHEST WITHOUT IV CONTRAST CLINICAL HISTORY: Dyspnea. COMPARISON STUDY: Chest x-ray dated 06/29/2020. TECHNIQUE: CT scan of the thorax was performed from the thoracic inlet to the upper abdomen. Images are reviewed in the axial, sagittal, and coronal planes. IV contrast was not administered for this examination as per the referring clinician. A dose lowering technique was utilized adhering to the principles of ALARA. CT DOSE: 463.61 mGy.cm FINDINGS: Thyroid: Imaged portions of the thyroid gland are normal in size and attenuation. Thoracic aorta: There is atherosclerotic calcification of the thoracic aorta, which is normal in caliber and demonstrates standard 3-vessel arch anatomy. Heart: The heart is enlarged noting a moderate pericardial effusion. The coronary arteries are densely calcified. Pulmonary trunk is dilated measuring 4.1 cm in diameter. This suggests pulmonary artery hypertension. Lungs and pleural spaces: Mild emphysematous change is noted throughout both lungs. There is diffuse intralobular septal thickening. Patchy groundglass consolidation is seen in the right upper and right lower lobes. No pleural effusion is identified. The trachea and central airways are clear. There are scattered calcified granulomas. Mediastinum: There is no mediastinal lymphadenopathy. Calin: There are calcified left hilar lymph nodes. The calin are not well assessed without IV contrast. Axillae: There is no axillary lymphadenopathy. Upper abdomen: There is a small hiatal hernia. The spleen is enlarged measuring at least 16 cm in length. There are scattered calcified splenic granulomas. There is ectasia of the celiac artery which measures up to 12 mm. Skeletal structures: The skeletal structures are osteopenic. Degenerative change and hyperkyphosis is noted in the thoracic spine. Advanced spondylotic change is partially imaged in the lower cervical spine. Arthritic change is noted in the shoulders. No lytic or blastic bony lesions are seen. IMPRESSION: 1. Emphysema. 2. Patchy groundglass consolidation is seen throughout the right upper and right lower lobes. This is typical in appearance for an infectious/inflammatory pneumonitis. Clinical correlation will be required and radiographic follow-up to resolution is recommended. 3. Cardiomegaly and moderate pericardial effusion. 4. Mild diffuse intralobular septal thickening suggests acute versus chronic congestive change and clinical correlation will be required. 5. Marked splenomegaly. 6. Additional findings as above. ACT 112: Negative or not required by law. Electronically signed by: Krzysztof Tapia M.D. 06/30/2020 8:05 AM Hospital Course (1) Paroxysmal atrial fibrillation with rapid ventricular response: (2) Community acquired pneumonia: (3) Moderate aortic stenosis: (4) Bicuspid aortic valve: (5) Chronic ischemic heart disease: The patient is an 84-year-old man who presented with acute onset shortness of breath, weakness who was found to have rapid atrial fibrillation on EKG. In the ER he was started on IV heparin and a Cardizem drip and subsequently converted back into sinus rhythm remaining there throughout the remainder of his hospitalization. Once he converted into sinus rhythm his symptoms improved considerably and ultimately resolved. He was also found on CT of the chest to have infiltrates consistent with pneumonia. Although he did not report suffering from respiratory symptoms, he did report chills 2 nights prior to arrival. He was started on a course of antibiotic therapy which will be continued in the outpatient setting. Cardiology was consulted and recommended prolonged anticoagulation given [id number] score. His heparin was switched to Eliquis at discharge. Although the patient does have aortic stenosis, the atrial fibrillation episode was considered secondary to his pulmonary infection. Outpatient follow-up with cardiology was recommended in 4 to 6 weeks to consider long-term management of atrial fibrillation. At time of discharge she was hemodynamically stable and afebrile and tolerating p.o. He was mentating and ambulating at baseline and oxygenating well on room air. He was not working to breathe and had no evidence of conversational dyspnea. He was discharged home in stable condition with close primary care follow-up recommended. Repeat chest x-ray in 4 to 6 weeks was recommended to ensure complete resolution of pneumonia. Of note the patient has received both injections of the Covid vaccination series approximately 6 weeks ago and his Covid test in the ER was negative. He was swabbed for influenza a and B which was also negative and RSV PCR which was also negative. Total Time Total Time Spent Total Time Spent (In Minutes): 60 Total Time Includes: Examination of the Patient, Discharge Planning, Medication Reconciliation and Communication With Other Providers Discharge Plan Discharge Items Patient Disposition: Home - Self-Care Reason For Visit: SOB Discharge Diagnosis: Community-acquired pneumonia Paroxysmal atrial fibrillation with rapid ventricular response Condition on Discharge: Good Activity: Resume your previous activity Non-emergency contact: Primary Care Provider Call non-emergency contact if: you have any medication questions, your symptoms worsen and you have a fever Follow-up/Referrals: Rahul Post DO [Primary Care Provider] - Diet: Heart Healthy Addtl Attending Provider Instructions: Please take all medications as instructed in discharge list below. It is recommended that you follow-up with your primary care provider in 1 week of discharge to ensure you are still doing well on the medical therapy. Please follow-up with [facility]iology in 4 to 6 weeks regarding ongoing blood thinner therapy with Eliquis and long-term management of this. You were diagnosed with pneumonia during this hospital stay. It is recommended that you undergo a repeat chest x-ray in 4 to 6 weeks to ensure complete resolution of pneumonia, and this may be ordered by her primary care provider. It was a pleasure taking care of you! Please call if you have any questions or problems. You can reach a [facility] hospitalist on duty at [facility] 24 hours a day by calling [phone]. Take care of yourself. Dejah Cortés DO [facility] Hospitalist Pending Studies at Discharge: No Stand-Alone Forms: My [facility] Medications and DC Order Prescriptions: New apixaban 5 mg tablet 5 mg PO BID Qty: 60 RF: 0 metoprolol succinate [Toprol XL] 25 mg tablet extended release 24 hr 12.5 mg PO BID Qty: 30 RF: 0 amoxicillin-pot clavulanate [Augmentin] 875-125 mg tablet 1 tab PO BID Qty: 14 RF: 0 doxycycline hyclate 100 mg capsule 100 mg PO BID Qty: 14 RF: 0 Continued atorvastatin [Lipitor] 40 mg Tablet 40 mg PO HS RF: 0 aspirin [Aspir-81] 81 mg Tablet,Delayed Release (Dr/Ec) 81 mg PO 3XWK RF: 0 indomethacin 25 mg Capsule 25 mg PO DAILY PRN (Reason: Pain) RF: 0 Discontinued atenolol 25 mg Tablet 12.5 mg PO HS RF: 0 Discharge Orders: Discharge Order (Routine); Ordered 06/30/20 Ordered By: Dejah Cortés Admission Data Admit Date/Time: 06/29/20 20:38 Attending Provider: Dejah Cortés Admit Provider: Kelvin Saucedo Primary Care Provider: Rahul Post Other Providers: Kelvin Saucedo ; Danny Downing ; Oliver Zimmerman ; Keith Weaver ; Kareem Rose ; Eleazar Marie ; Giovany Page ; Sabi Chung ; Faby Frederick ; Josselyn Franklin ; Billy Aguilar
[2020-06-30] MEDS ORDERED: APIXABAN 5 MG TABLET PO SCH ×2 (18:00→21:00)
[2020-06-30] MEDS ORDERED: METOPROLOL SUCC 25MG EXT REL TAB PO SCH ×2 (18:00→21:00)
== END 2020-06-30 18:55 | disposition home or self-care (01) ==
LOC: ED 17:58 → 2S 20:38 → INTOOBSV 20:38 → 2S 22:26

== ENCOUNTER 2020-07-12 18:03 | Observation (INO) ==
[2020-07-12] MEDS ORDERED: SODIUM CHLORIDE 0.9% 500 ML IV SCH (18:45)
--- NOTE | 2020-07-12 18:56 | Emergency Department Note ---
Impression & Plan Hemat[place]zia ED Provider Note Provider: Greyson Toth MD DATE OF SERVICE: 07/12/2020 CHIEF COMPLAINT: Rectal bleeding HISTORY OF PRESENT ILLNESS: Patient is a 84-year-old gentleman history of CAD, recent diagnosis of atrial fibrillation on Eliquis presenting today driving back into town with his from [place] reporting that overnight he developed diarrhea and then this morning persistent throughout the day multiple episodes of bloody diarrhea. States he has not taken his Eliquis in 24 hours and skipped his morning dose this morning. Took his aspirin last 24 hours ago. States he has not had any nausea or vomiting. Denies any fever, chest pain, palpitations, shortness of breath, or syncope. No sick contacts reported and his is otherwise well. Reports that when he moves or strains he has blood come out of his rectum. Denies significant abdominal pain. Patient recently finished a course of Augmentin for pneumonia 4 days ago. No history of C. difficile reported. REVIEW OF SYSTEMS: A total of 10 review of systems was obtained and negative except as stated above in the HPI. PAST MEDICAL HISTORY: As noted above MEDICATIONS: Reviewed home medications. SOCIAL HISTORY: Lives at home with PHYSICAL EXAM: GENERAL: alert and oriented in no acute distress on stretcher Head: normocephalic and atraumatic EYES: No injection, discharge or icterus. NECK: Trachea midline. LUNGS: Airway patent. No retractions. Breath sounds clear HEART: Regular rate and rhythm. No chest wall tenderness ABDOMEN: Soft and non-tender, without guarding or rebound. Rectal: With nurse surgical aides teacher slight bright red blood small appreciate internal hemorrhoid with no clots appreciated Hemoccult positive. No melena noted. SKIN: Acyanotic, warm, dry, without rashes EXTREMITIES: Without swelling, tenderness or deformity NEUROLOGICAL: No focal deficits. No aphasia. No facial droop or slurred speech. EK bpm normal sinus rhythm. No PVC or PAC. No acute ST segment elevation noted with T wave inversion in V1, V2, and flattening in V3. Compared to June 30 of this year given version now present. Not clearly needing right bundle branch block definition at this time. CONTINUOUS CARDIAC MONITORING: was ordered and showed a heart rate of 60s to 70s bpm in normal sinus rhythm rare PVC Patient's laboratory studies and imaging reviewed. Differential includes Diverticulosis, AVM, coagulopathy, colitis, inflammatory bowel disease, malignancy, Tamika-Agosto tear, esophagitis, peptic ulcer disease, variceal bleed, gastritis, epistaxis, fissure, hemorrhoids, as well as other pathologies. IMPRESSION/MEDICAL DECISION MAKING: Patient presents with onset overnight of some diarrhea but red blood per rectum starting today persistently states anytime as he moves. Denies significant clots. Denies significant anemic symptoms. Has been off his Eliquis for 24 hours as he noted bleeding. Otherwise normally taking aspirin. Denies symptoms consistent with A. fib although he does not always notice this. Some small mount of bright red blood noted on rectal exam but no severe bleeding. Low suspicion for upper GI bleed given the patient risk factors at this point. He does have a little bit of odd feeling in his left lower quadrant given CT scan be completed to exclude diverticulitis or colon irritation. Believe is likely more lower GI related bleeding. Patient was recently on antibiotics and stool cultures and C. difficile were ordered although does not sound classic for C. difficile at this time. Patient's labs show slight anemia actually somewhat improved. No significant thrombocytopenia. White count slightly of 11.1. No severe electrolyte ab normality or renal dysfunction noted. No evidence acute hepatitis or pancreatitis based on laboratory studies. CT report per radiology of the abdomen pelvis questions a mild left-sided colitis but no perforation or signs of significant diverticulitis. We will hold off on antibiotics at this point as this very well could just be viral. Patient did tolerate a bit of applesauce here and has not had more bloody diarrhea here. Discussed with the patient however given his age and antiplatelet and anticoagulation use the possibility of further observation versus close outpatient monitoring. We will proceed with observation overnight and the hospitalist was contacted. DIAGNOSIS: Bright red blood per rectum DISPOSITION: Hospitalist will evaluate Patient was agreeable with this plan. Past Med/Surg History Medical History Aortic stenosis gets echo every year to monitor > follows Dr. Weaver Dyslipidemia Gout Myocardial Infarction 1993 > RCA > Atenolol and Lipitor for this Osteoarthritis Prostate cancer 5 yrs ago > radiation Surgical History H/O heart artery stent 1998 > x1 > follows with Dr. Weaver History of colonoscopy History of tooth extraction History of total knee replacement left Family History Brother Colon cancer Social History Smoking Status: Former smoker Tobacco Type: Cigarettes Second Hand Exposure: No; Hx Alcohol Use: Yes Alcohol type: hard liquor Hx Substance Use: No Preferred Language: Ukrainian Communication Ability: Effective Data Security Coordinator Required: No Beliefs That Will Affect Care: None Current Living Situation: Spouse Feels Safe at Home: Yes Safety Concerns: Feels Safe At This Time Assistive Devices: Glasses and Hearing Aid - Bilateral Allergies Allergies Allergy/AdvReac Type Severity Reaction Status Date / Time TISHA Inhibitors AdvReac Mild COUGH Verified 06/29/20 19:05 Home Meds Home Medications Medication Instructions Recorded Confirmed aspirin 81 mg PO 3XWK 06/18/20 07/12/20 atorvastatin [Lipitor] 40 mg PO HS 06/18/20 07/12/20 Previous Rx's Medication Instructions Recorded apixaban 5 mg PO BID #60 tab 06/30/20 metoprolol succinate [Toprol XL] 12.5 mg PO BID #30 tab 06/30/20 Results & Data (ED) Vital Signs Vital Signs - 24 hr 07/12/20 18:11 07/12/20 19:08 07/12/20 21:49 Temperature 36.9 C Temperature Source Oral Pulse Rate 90 Pulse Rate [Apical] 72 83 Respiratory Rate 18 20 20 Blood Pressure 157/81 H Blood Pressure [Right Arm] 150/99 H 134/80 Blood Pressure Mean 106 Blood Pressure Mean [Right Arm] 116 98 Pulse Oximetry 98 97 99 Oxygen Delivery Method Room Air Room Air Room Air Sepsis Recent Fever Within 48 Hours No Sepsis New/Unexplained Change in Mental Status No Sepsis Action Taken by Nursing No Action Required Laboratory Data Result diagrams: 07/12/20 19:04 07/12/20 19:04 Lab Results 07/12/20 07/12/20 07/12/20 Range/Units 19:04 19:04 19:04 WBC 11.14 H (4.8-10.8) K/uL RBC 4.40 L (4.7-6.1) M/uL Hgb 13.4 L (14.0-18.0) g/dL Hct 38.9 L (42-52) % MCV 88.4 (80-100) fL MCH 30.5 (25-34) pg MCHC 34.4 (32-36) g/dL RDW Std Deviation 44.5 (36.4-46.3) fL RDW Coeff of [place] 13.8 (11.5-14.5) % Plt Count 144 (130-400) K/uL MPV 9.7 (7.4-10.4) fL Immature Gran % (Auto) 0.1 % Neut % (Auto) 42.0 % Lymph % (Auto) 52.6 % Chaves % (Auto) 4.7 % Eos % (Auto) 0.4 % Baso % (Auto) 0.2 % Neut # (Auto) 4.68 (1.4-6.5) K/uL Lymph # (Auto) 5.86 H (1.2-3.4) K/uL Chaves # (Auto) 0.52 (0.11-0.59) K/uL Eos # (Auto) 0.05 (0-0.5) K/uL Baso # (Auto) 0.02 (0-0.2) K/uL Immature Gran # (Auto) 0.01 (0.00-0.02) K/uL PT 10.3 (9.0-12.0) Seconds INR 1.0 (0.9-1.1) APTT 22.8 (21.0-31.0) Seconds PTT Ratio 0.9 Sodium 140 (136-145) mmol/L Potassium 3.6 (3.5-5.1) mmol/L Chloride 108 H (98-107) mmol/L Carbon Dioxide 27 (21-32) mmol/L Anion Gap 5.0 (3-11) BUN 15 (7-18) mg/dl Creatinine 0.66 (0.6-1.4) mg/dl Est Cr Clr Drug Dosing 91.4 ml/min Est GFR ( Amer) 103.6 Est GFR (Non-Af Amer) 89.4 BUN/Creatinine Ratio 22.7 H (10-20) Glucose 101 H (70-99) mg/dl Calcium 8.6 (8.5-10.1) mg/dl Total Bilirubin 0.7 (0.2-1) mg/dl AST 14 L (15-37) U/L ALT 23 (12-78) U/L Alkaline Phosphatase 78 (45-117) U/L Troponin I < 0.015 (0-0.045) ng/ml Total Protein 6.4 (6.4-8.2) gm/dl Albumin 3.6 (3.4-5.0) gm/dl Globulin 2.8 (2.5-4.0) gm/dl Albumin/Globulin Ratio 1.3 (0.9-2) Lipase 184 (73-393) U/L Blood Type Antibody Screen 07/12/20 Range/Units 19:05 WBC (4.8-10.8) K/uL RBC (4.7-6.1) M/uL Hgb (14.0-18.0) g/dL Hct (42-52) % MCV (80-100) fL MCH (25-34) pg MCHC (32-36) g/dL RDW Std Deviation (36.4-46.3) fL RDW Coeff of [place] (11.5-14.5) % Plt Count (130-400) K/uL MPV (7.4-10.4) fL Immature Gran % (Auto) % Neut % (Auto) % Lymph % (Auto) % Chaves % (Auto) % Eos % (Auto) % Baso % (Auto) % Neut # (Auto) (1.4-6.5) K/uL Lymph # (Auto) (1.2-3.4) K/uL Chaves # (Auto) (0.11-0.59) K/uL Eos # (Auto) (0-0.5) K/uL Baso # (Auto) (0-0.2) K/uL Immature Gran # (Auto) (0.00-0.02) K/uL PT (9.0-12.0) Seconds INR (0.9-1.1) APTT (21.0-31.0) Seconds PTT Ratio Sodium (136-145) mmol/L Potassium (3.5-5.1) mmol/L Chloride (98-107) mmol/L Carbon Dioxide (21-32) mmol/L Anion Gap (3-11) BUN (7-18) mg/dl Creatinine (0.6-1.4) mg/dl Est Cr Clr Drug Dosing ml/min Est GFR ( Amer) Est GFR (Non-Af Amer) BUN/Creatinine Ratio (10-20) Glucose (70-99) mg/dl Calcium (8.5-10.1) mg/dl Total Bilirubin (0.2-1) mg/dl AST (15-37) U/L ALT (12-78) U/L Alkaline Phosphatase (45-117) U/L Troponin I (0-0.045) ng/ml Total Protein (6.4-8.2) gm/dl Albumin (3.4-5.0) gm/dl Globulin (2.5-4.0) gm/dl Albumin/Globulin Ratio (0.9-2) Lipase (73-393) U/L Blood Type A Positive Antibody Screen NEGATIVE Administered Medications Sodium Chloride (Nss 1000ml) 1,000 mls @ 80 mls/hr IV .[id number] [facility] Stop: 08/11/20 23:57 Last Admin: 07/13/20 00:21 Dose: 80 mls/hr Documented by: [id number] Metoprolol Succinate (Metoprolol Succ 25mg Ext Rel Tab) 12.5 mg PO BID [facility] Stop: 08/11/20 23:57 Last Admin: 07/13/20 00:43 Dose: 12.5 mg Documented by: [id number] Discontinued Medications Sodium Chloride (Nss) 500 mls @ 999 mls/hr IV .Q31M [place] Stop: 07/12/20 19:15 Last Infusion: 07/12/20 19:56 Dose: 0 mls/hr Documented by: [id number] Admin: 07/12/20 19:17 Dose: 999 mls/hr Documented by: [id number] Ioversol (Optiray 300 100ml) 89 ml IV ONCE ONE Stop: 07/12/20 20:13 Last Admin: 07/12/20 20:12 Dose: 89 ml Documented by: [id number] Imaging Data Radiologist's Impression: Abdomen/Pelvis CT 07/12/20 18:35 CT SCAN OF THE ABDOMEN AND PELVIS WITH IV CONTRAST CLINICAL HISTORY: Diarrhea. Hematochezia. COMPARISON STUDY: No priors. TECHNIQUE: Following the IV administration of 89 cc of Optiray 300, CT scan of the abdomen and pelvis is performed from the lung bases to the proximal femora. Images are reviewed in the axial, sagittal, and coronal planes. IV contrast was administered without complication. A dose lowering technique was utilized adhering to the principles of ALARA. CT DOSE: 698.30 mGy.cm FINDINGS: Lung bases: The heart is enlarged noting a small pericardial effusion. The coronary arteries are densely calcified. Calcified left hilar nodes are partially imaged. There is a small hiatal hernia. The lung bases are clear noting bibasilar scarring/atelectasis. Liver: The contrast-enhanced liver is normal in size, contour, and attenuation. There is no intrahepatic biliary ductal dilatation. The hepatic veins and portal veins are patent. Gallbladder: Unremarkable. Spleen: The spleen is enlarged, measuring 18.5 cm in length. Pancreas: Moderately atrophic and grossly unremarkable. Adrenal glands: Unremarkable. Kidneys: The contrast enhanced kidneys are atrophic and without hydronephrosis. The kidneys enhance symmetrically. A 2.8 cm cyst is noted in the right upper pole. Additional subcentimeter cortical hypodensities also likely represent cysts but are too small for definitive characterization. Abdominal vasculature: The abdominal aorta is normal in course and caliber noting advanced atherosclerotic calcification. 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 Bowel: There is mild colonic diverticulosis without CT evidence of acute diverticulitis. No bowel obstruction is seen. There is wall thickening and edema identified involving the left colon. This extends from the splenic flexure to the distal descending colon, and there is associated pericolonic inflammation. There is no pneumatosis intestinalis or portal venous gas. The appendix is well-visualized and normal. Peritoneum: There is no intraperitoneal free air or abdominal ascites. Lymphadenopathy: None. Pelvic viscera: The prostate gland is mildly enlarged and heterogeneous noting median lobe hypertrophy. The bladder wall is thickened and trabeculated indicating chronic outlet obstruction. Skeletal structures: The skeletal structures are osteopenic. There is moderate to advanced lumbosacral spondylosis and mild scoliosis. No lytic or blastic lesions are seen. IMPRESSION: 1. Findings are consistent with a nonspecific colitis of the left colon. This could be on an infectious, inflammatory, or ischemic basis and clinical correlation will be required. 2. Marked splenomegaly. 3. Cardiomegaly and small pericardial effusion. 4. Mild colonic diverticulosis without CT evidence of acute diverticulitis. 5. Additional findings as above. ACT 112: Negative or not required by law. Electronically signed by: Krzysztof Tapia M.D. 07/12/2020 9:04 PM Discharge Plan Visit Data Chief Complaint: Rectal Bleed Stated Complaint: RECTAL BLEED ED Provider: Greyson Toth Discharge Problem: Hematochezia Patient Disposition: Admitted As Inpatient Discharge Instructions Interventions: ED Discharge Assessment Last Done: 07/12/20 23:49
[2020-07-12 19:13] LABS: Hematocrit (blood only) 38.9 % (42-52); Hemoglobin 13.4 g/dL (14.0-18.0); Mean Corpuscular Hemoglobin 30.5 pg (25-34); Mean Corpuscular Hgb Conc 34.4 g/dL (32-36); Mean Corpuscular Volume 88.4 fL (80-100); Mean Platelet Volume 9.7 fL (7.4-10.4); Platelet Count 144 K/uL (130-400); RDW Coefficient of Variation 13.8 % (11.5-14.5); RDW Standard Deviation 44.5 fL (36.4-46.3); White Blood Count 11.14 K/uL (4.8-10.8)
[2020-07-12 19:25] LABS: Partial Thromboplastin Ratio 0.9; Partial Thromboplastin Time 22.8 Seconds (21.0-31.0); Prothrombin Time 10.3 Seconds (9.0-12.0)
[2020-07-12 19:30] LABS: Alanine Aminotransferase 23 U/L (12-78); Albumin Level 3.6 gm/dl (3.4-5.0); Aspartate Aminotransferase 14 U/L (15-37); BUN Creatinine Ratio 22.7 (10-20); Blood Urea Nitrogen 15 mg/dl (7-18); Calcium 8.6 mg/dl (8.5-10.1); Carbon Dioxide 27 mmol/L (21-32); Chloride 108 mmol/L (98-107); Creatinine Clr Calc Pharmacy 91.4 ml/min; Est GFR (African American) 103.6; Est GFR (Non-African American) 89.4; Glucose 101 mg/dl (70-99); Lipase 184 U/L (73-393); Potassium 3.6 mmol/L (3.5-5.1); Sodium 140 mmol/L (136-145)
[2020-07-12 19:35] LABS: Albumin Globulin Ratio 1.3 (0.9-2); Alkaline Phosphatase 78 U/L (45-117); Bilirubin,Total 0.7 mg/dl (0.2-1); Globulin 2.8 gm/dl (2.5-4.0); Total Protein 6.4 gm/dl (6.4-8.2); Troponin I < 0.015 ng/ml (0-0.045)
[2020-07-12] MEDS ORDERED: OPTIRAY 300 100mL IV ONE (20:12)
[2020-07-12 20:24] LABS: Basophils # (auto) 0.02 K/uL (0-0.2); Basophils % (auto) 0.2 %; Eosinophils # (auto) 0.05 K/uL (0-0.5); Eosinophils % (auto) 0.4 %; Immature Granulocytes # (auto) 0.01 K/uL (0.00-0.02); Immature Granulocytes % (auto) 0.1 %; Lymphocytes # (auto) 5.86 K/uL (1.2-3.4); Lymphocytes % (auto) 52.6 %; Monocytes # (auto) 0.52 K/uL (0.11-0.59); Monocytes % (auto) 4.7 %; Neutrophils # (auto) 4.68 K/uL (1.4-6.5)
[2020-07-12 20:32] LABS: Influenza A virus by PCR Negative (Neg); Influenza B virus by PCR Negative (Neg); RSV by PCR Negative (Neg); SARS CoV2 RNA(COVID-19) InHosp NEGATIVE (Negative)
--- NOTE | 2020-07-12 21:06 | CT Scan Report ---
CT SCAN OF THE ABDOMEN AND PELVIS WITH IV CONTRAST CLINICAL HISTORY: Diarrhea. Hematochezia. COMPARISON STUDY: No priors. TECHNIQUE: Following the IV administration of 89 cc of Optiray 300, CT scan of the abdomen and pelvi s is performed from the lung bases to the proximal femora. Images are reviewed in the axial, sagittal , and coronal planes. IV contrast was administered without complication. A dose lowering technique wa s utilized adhering to the principles of ALARA. CT DOSE: 698.30 mGy.cm FINDINGS: Lung bases: The heart is enlarged noting a small pericardial effusion. The coronary arteries are dens devin calcified. Calcified left hilar nodes are partially imaged. There is a small hiatal hernia. The l dom bases are clear noting bibasilar scarring/atelectasis. Liver: The contrast-enhanced liver is normal in size, contour, and attenuation. There is no intrahepa tic biliary ductal dilatation. The hepatic veins and portal veins are patent. Gallbladder: Unremarkable. Spleen: The spleen is enlarged, measuring 18.5 cm in length. Pancreas: Moderately atrophic and grossly unremarkable. Adrenal glands: Unremarkable. Kidneys: The contrast enhanced kidneys are atrophic and without hydronephrosis. The kidneys enhance s ymmetrically. A 2.8 cm cyst is noted in the right upper pole. Additional subcentimeter cortical hypod ensities also likely represent cysts but are too small for definitive characterization. Abdominal vasculature: The abdominal aorta is normal in course and caliber noting advanced atheroscle rotic calcification. There is at least moderate stenosis at the origin of the superior mesenteric art debra. Bowel: There is mild colonic diverticulosis without CT evidence of acute diverticulitis. No bowel obs truction is seen. There is wall thickening and edema identified involving the left colon. This extend s from the splenic flexure to the distal descending colon, and there is associated pericolonic inflam mation. There is no pneumatosis intestinalis or portal venous gas. The appendix is well-visualized a nd normal. Peritoneum: There is no intraperitoneal free air or abdominal ascites. Lymphadenopathy: None. Pelvic viscera: The prostate gland is mildly enlarged and heterogeneous noting median lobe hypertroph y. The bladder wall is thickened and trabeculated indicating chronic outlet obstruction. Skeletal structures: The skeletal structures are osteopenic. There is moderate to advanced lumbosacra l spondylosis and mild scoliosis. No lytic or blastic lesions are seen. IMPRESSION: 1. Findings are consistent with a nonspecific colitis of the left colon. This could be on an infectio us, inflammatory, or ischemic basis and clinical correlation will be required. 2. Marked splenomegaly. 3. Cardiomegaly and small pericardial effusion. 4. Mild colonic diverticulosis without CT evidence of acute diverticulitis. 5. Additional findings as above. ACT 112: Negative or not required by law. Electronically signed by: Krzysztof Tapia M.D. 07/12/2020 9:04 PM
[2020-07-12] MEDS ORDERED: ACETAMINOPHEN 325 MG TAB PO PRN (23:58)
[2020-07-12] MEDS ORDERED: NITROGLYCERIN SL 0.4 MG/TAB TAB SL PRN (23:58)
[2020-07-13] MEDS: SODIUM CHLORIDE 0.9% 1000ML 1,000 ML IV SCH ×2 (00:21→12:23)
[2020-07-13] MEDS: METOPROLOL SUCC 25MG EXT REL TAB PO SCH ×3 (00:43→21:06)
--- NOTE | 2020-07-13 01:29 | History and Physical Report ---
DATE OF ADMISSION: 07/12/2020 CHIEF COMPLAINT: Rectal bleed. HISTORY OF PRESENT ILLNESS: This is an 84-year-old male with past medical history significant for hyperlipidemia, CAD, moderate aortic wall stenosis, bicuspid aortic valve, gout, osteoarthritis, history of prostate cancer, who was recently in the hospital for rapid AFib and was started on Eliquis and at that time also was treated for pneumonia. Finished one-week course of antibiotics last . Comes because of diarrhea and rectal bleed. The patient says since yesterday night he has some diarrhea and today when he wiped he noticed some blood in the mucus, which prompted him to come to the ER and since today morning, he is not taking any aspirin or his Eliquis. Denies any abdominal pain, no nausea, no vomiting, no chest pain or shortness of breath. No cough, no fever, no chills, no headache, no blurred vision, no earache, no runny nose, no sore throat. Currently resting comfortably and hemodynamically stable. Ambulates without any support. Lives with his . ALLERGIES: TISHA INHIBITORS. PAST MEDICAL HISTORY: As mentioned above. PAST SURGICAL HISTORY: Cardiac stent placement, colonoscopy, needle punch biopsy of the prostate. MEDICATIONS: Currently, the patient is on aspirin 81 mg p.o. 3 times a week, Eliquis 5 mg p.o. b.i.d., atorvastatin 20 mg p.o. at bedtime, metoprolol succinate 12.5 mg p.o. b.i.d. FAMILY HISTORY: Significant for brother had colon cancer, heart disorder; father has heart disorder, diabetes; mother has cancer, heart disorder. SOCIAL HISTORY: , quit smoking in 1971. Drinks alcohol, no drug use. REVIEW OF SYSTEMS: As per HPI. Rest of the review of systems negative. PHYSICAL EXAMINATION: GENERAL: The patient is of moderate build, not in acute distress. VITAL SIGNS: Temperature 36.8, pulse 83, respiratory rate 20, blood pressure 134/80, oxygen 99% on room air. HEENT: Pupils are equal, round, reactive to light. Oral mucosa somewhat dry. NECK: No JVD, no neck masses. CARDIOVASCULAR: S1, S2 heard, regular rate and rhythm, no murmur, no gallop. RESPIRATORY SYSTEM: Normal AP diameter. No accessory muscle use. No wheezing, no crackles. ABDOMEN: Soft, bowel sounds present, nontender. No distention. CENTRAL NERVOUS SYSTEM: Cranial nerves II-XII grossly intact. Nonfocal. EXTREMITIES: No edema, no erythema. LABORATORY DATA: WBC 11.1, hemoglobin 13.4, hematocrit 38.9, platelets 144. PT 10.3, INR 1, APTT 22.8. Sodium 140, potassium 3.6, chloride 108, bicarbonate 27, BUN 15, creatinine 0.6, serum glucose 101, calcium 8.6, total bilirubin 0.7, AST 14, ALT 23, alkaline phosphatase 78. Troponin I less than 0.015. Lipase 184. SARS-CoV-2 PCR negative. Influenza A and B PCR negative, RSV PCR negative. IMAGING DATA: CT of the abdomen and pelvis shows nonspecific colitis of the left colon, marked splenomegaly, cardiomegaly and small pericardial effusion, mild colonic diverticulosis without CT evidence of diverticulitis. EKG: Normal sinus rhythm at a rate of 74, nonspecific T-wave abnormalities. ASSESSMENT AND PLAN: This is an 84-year-old male who presents with rectal bleed. 1. Rectal bleed: Recently started on Eliquis. Nonspecific left-sided colitis on the CAT scan, also diverticulosis. Recently had antibiotics for pneumonia, ruled out Clostridium difficile. Hemoglobin stable at 13.4, better than at the time of discharge last admission. Will follow H and H. Hold aspirin and Eliquis. Gentle fluids, n.p.o. Consult GI in the a.m. for further recommendations. 2. History of atrial fibrillation: On Toprol-XL, which he will continue. Holding Eliquis. 3. Hyperlipidemia: Continue statin. 4. History of coronary artery disease: Status post stent, on statin and Toprol-XL. Holding aspirin. 5. History of bicuspid aortic valve and moderate aortic stenosis: Monitor volume overload. Follow up with cardiology. 6. Hx of prostrate cancer. s/p radiation treatment. Followup with urology and oncology 7. Deep venous thrombosis prophylaxis: Sequential compression devices for now. 8. Disposition: Closely monitor in the tele floor. Level 1 full code. Expect to discharge home and follow with family doctor. [facility]
[2020-07-13 05:59] LABS: Hematocrit (blood only) 36.3 % (42-52); Hemoglobin 12.1 g/dL (14.0-18.0)
[2020-07-13 06:00] LABS: Hematocrit (blood only) 36.1 % (42-52); Hemoglobin 12.2 g/dL (14.0-18.0); Mean Corpuscular Hgb Conc 33.8 g/dL (32-36); Mean Corpuscular Volume 88.9 fL (80-100); Mean Platelet Volume 9.6 fL (7.4-10.4); Platelet Count 125 K/uL (130-400); RDW Coefficient of Variation 13.9 % (11.5-14.5); RDW Standard Deviation 45.2 fL (36.4-46.3); Red Blood Count 4.06 M/uL (4.7-6.1); White Blood Count 8.82 K/uL (4.8-10.8)
[2020-07-13 06:24] LABS: BUN Creatinine Ratio 17.1 (10-20); Calcium 8.3 mg/dl (8.5-10.1); Creatinine Clr Calc Pharmacy 95.8 ml/min; Est GFR (African American) 104.9; Est GFR (Non-African American) 90.5; Potassium 3.9 mmol/L (3.5-5.1)
[2020-07-13 07:11] LABS: Basophils # (auto) 0.01 K/uL (0-0.2); Basophils % (auto) 0.1 %; Eosinophils # (auto) 0.06 K/uL (0-0.5); Eosinophils % (auto) 0.7 %; Immature Granulocytes # (auto) 0.01 K/uL (0.00-0.02); Immature Granulocytes % (auto) 0.1 %; Lymphocytes # (auto) 5.21 K/uL (1.2-3.4); Lymphocytes % (auto) 59.1 %; Monocytes # (auto) 0.32 K/uL (0.11-0.59); Monocytes % (auto) 3.6 %; Neutrophils # (auto) 3.21 K/uL (1.4-6.5); Neutrophils % (auto) 36.4 %; Smudge Cells Present
--- NOTE | 2020-07-13 08:55 | Electrocardiogram Report ---
Test Reason : Blood Pressure : / mmHG Vent. Rate : 074 BPM Atrial Rate : 074 BPM P-R Int : 166 ms QRS Dur : 096 ms QT Int : 436 ms P-R-T Axes : 091 -07 045 degrees QTc Int : 483 ms Normal sinus rhythm Old Inferior infarct (cited on or before 30-JUN-2020) Incomplete right bundle branch block Abnormal ECG When compared with ECG of 30-JUN-2020 05:01, Premature ventricular complexes are no longer Present Otherwise no significant change Confirmed by Dalton Ceballos ([id number]) on 07/13/2020 8:55:09 AM Referred By: REFERRED SELF Confirmed By:Dalton Ceballos
--- NOTE | 2020-07-13 10:21 | Hospitalist Progress Note ---
Date of Service July 13, 2020 Assessment & Plan (1) Hematochezia: (2) Dyslipidemia: (3) Coronary atherosclerosis: ASSESSMENT AND PLAN: This is an 84-year-old male who presents with rectal bleed. 1. Rectal bleed: Recently started on Eliquis. Nonspecific left-sided colitis on the CAT scan, also diverticulosis. Recently had antibiotics for pneumonia, ruled out Clostridium difficile. Hemoglobin stable at 13.4, better than at the time of discharge last admission, but today Hb 12.2. Hold aspirin and Eliquis. Gentle fluids, n.p.o. GI on case for further recommendations. 2. History of atrial fibrillation: On Toprol-XL, which he will continue. Holding Eliquis. 3. Hyperlipidemia: Continue statin. 4. History of coronary artery disease: Status post stent, on statin and Toprol-XL. Holding aspirin. 5. History of bicuspid aortic valve and moderate aortic stenosis: Monitor volu me overload. Follow up with cardiology. 6. Hx of prostrate cancer. s/p radiation treatment. Followup with urology and oncology 7. Deep venous thrombosis prophylaxis: Sequential compression devices for now. 8. Disposition: Closely monitor in the tele floor. Level 1 full code. Expect to discharge home and follow with family doctor. Labs checked ROS-No Headache, No Visual Changes, No Nausea, No Vomiting, No Fever, No Chills, No Neck Pain or Stiffness, No Chest Pain, No Palpitations, No SOB, No HORTA, No Cough, No Sputum, No Wheezing, No Abdominal Pain, No Diarrhea, No Hematemesis, No Hemoptysis, No Unexpected Weight Loss, No Flank pain, No Melena, No Hematochezia, No Frequency, No Urgency, No Burning, No Hematuria, No Rashes, No Diaphoresis. Appetite is Normal Physical Exam Gen-AAO x 3, NAD, Afebrile Head-NCAT, EOMI, PERRLA, Anicteric Sclera, No Posterior Pharyngeal Erythema Neck-Supple, No JVD, No Thyromegaly, No Masses, No LAD, No Bruits Lungs-Clear to Auscultation Bilaterally, No Rales, No Rhonchi, No Wheezing, No Crepitus Chest-No S4, +S1, +S2, No S3, No Murmurs, No Rubs, No Gallops, No Ectopy Abdomen-Soft, Bowel Sounds Present, Non Tender, Non Distended, No Hepatomegaly, No Splenomegaly, No Palpable Masses, No Rebound, No Rigidity, No Guarding Musculoskeletal-Full Range of Motion Bilaterally, No CVAT Extremities-No Cyanosis, No Clubbing, No Edema Nuero-Cranial Nerves II-XII grossly intact, Motor WNL, DTRs WNL, Strength WNL, Non Focal Psych-Normal Mood Admission and Anticipated Discharge Date Admission Date: July 12, 2020 Results & Data Results & Data ([facility]) Vital Signs (Past 12 Hours) Vital Signs Temp Pulse Resp BP Pulse Ox 07/13/20 08:09 36.8 C 69 18 112/65 95 07/13/20 04:49 36.7 C 70 18 103/67 97 07/12/20 23:49 37.0 C 71 20 134/82 97 07/12/20 23:24 70 18 134/80 96
[2020-07-13 11:12] LABS: Hematocrit (blood only) 38.4 % (42-52); Hemoglobin 12.9 g/dL (14.0-18.0)
--- NOTE | 2020-07-13 14:34 | Gastrointestinal Consultation ---
Date of Consultation July 13, 2020 Assessment & Plan (1) Hematochezia: And CT with left sided colitis Likely caused by mild ischemic colitis vs. diverticular or hemorrhoidal bleeding. Plan: - Liquid diet today, had clears earlier - will advance to full liquids. May adv to a soft diet tomorrow. - Check CBC, CMP tomorrow. - Will arranged OP colonoscopy in approx 4-6 wks. - May restart Eliquis and would defer terminal gauger continuation of Eliquis to pt (who is reluctant) and cardiology. A this time, he does not have a significant rectal bleed, so no absolute GI contraindication to continued anticoagulation. - No clear GI indication for antibiotics. Present on Admission?: Yes Supervising Physician Co-Signing Physician Notes Attg add: I interviewed and examined pt, reviewed chart and labs. Pt with recent dx A fib on Eliquis now with abrupt onset of rectal bleeding. Pt describes several small volume episodes of BRB with mucus overnight. Denies abd pain. Hgb unremarkable, at around 12. CT shows left sided colitis. Csocpy 2017 showed single diminutive polyp. He reports scant blood per rectum this am x 1. On exam, he appears well. LLQ mildly tender with deep palpation Likely ischemic colitis, clinically largely resolved. Diet as tolerated, ok for d/c from our standpoint if hgb stable overnight. Ok to cont eliquis. Plan for csocpy in 4 weeks. History of Present Illness Reason for Consultation: rectal bleeding Requesting Physician: Dr. Reyes Attending Physician: Jesus Kessler DO History of Present Illness Mr. Adam Bennett is an 84 yr old male pt of [facility] with a hx of CAD, prostate cancer, hyperlipidemia, bucuspic aortic valve, gout, arthritis. He who experienced recent pneumonia and A-fib with RVR a few weeks ago, and was placed on Eliquis. He presented to the ED late yesterday for rectal bleeding. Bleeding consisted of blood tinged mucous on Sunday night, after passing several large volume diarrhea BMs. He presented to the ED and today has experienced two more episodes of bright red rectal bleeding, only his underwear, between BMs and also with passing fecal material. He has had some abdominal cramping but no significant abdominal pain, no nausea, vomiting and denies any recent lightheadedness though he did have significant sweating with a BM on Sunday night. He actually felt well enough yesterday to drive 4 hrs from [place] where he was with family, coming back to seek medical care. Today, he is awake, alert, oriented, hemodynamically stable. Hb on arrival was 13.4-> today 12.9. CT on arrival with mild sigmoid wall thickening suggesting non specific colitis, also with diverticulosis. Most recent colonoscopy 3 yrs ago, with internal hemorrhoids. Allergies Allergy/AdvReac Type Severity Reaction Status Date / Time TISHA Inhibitors AdvReac Mild COUGH Verified 06/29/20 19:05 Home Medications Medication Instructions Recorded Confirmed Type aspirin 81 mg PO 3XWK 06/18/20 07/12/20 History atorvastatin [Lipitor] 40 mg PO HS 06/18/20 07/12/20 History apixaban 5 mg PO BID #60 tab 06/30/20 07/12/20 Rx metoprolol succinate [Toprol XL] 12.5 mg PO BID #30 tab 06/30/20 07/12/20 Rx Patient History Medical History Aortic stenosis gets echo every year to monitor > follows Dr. Weaver Dyslipidemia Gout Myocardial Infarction 1993 > RCA > Atenolol and Lipitor for this Osteoarthritis Prostate cancer 5 yrs ago > radiation Surgical History H/O heart artery stent 1998 > x1 > follows with Dr. Weaver History of colonoscopy History of tooth extraction History of total knee replacement left Family History Brother Colon cancer Social History Smoking Status: Former smoker Tobacco Type: Cigarettes Second Hand Exposure: No; Hx Alcohol Use: Yes Alcohol type: hard liquor Hx Substance Use: No Preferred Language: Malagasy Communication Ability: Effective Cabinet Worker Required: No Beliefs That Will Affect Care: None Current Living Situation: Spouse Feels Safe at Home: Yes Safety Concerns: Feels Safe At This Time Assistive Devices: Glasses and Hearing Aid - Bilateral Review of Systems Review of Systems: ROS: Gen: Denies weakness, fevers, weight loss Eyes: No eye redness, or pain, no recent vision changes Resp: No SOB, no cough Cardio: No palpitations/irregular beats, no chest pain GI: Per HPI, otherwise negative : Denies pain on urination Skin: No jaundice, itching or new rashes Physical Exam Constitutional: WD/WN, vitals as above Eyes: PERRL, conjunctivae normal, anicteric sclerae ENMT: external ear and nose normal, oropharynx normal Neck: trachea midline, no thyromegaly Respiratory: normal respiratory effort, lungs clear to auscultation Cardiovascular: RRR, no murmur, no edema Gastrointestinal (Abdomen): Percussion/Palpation: + abdomen tender (LLQ mild tenderness w/o rebound or guarding) and abdomen soft Musculoskeletal: no cyanosis or clubbing, extremities motor strength 5/5 Skin: no rashes, warm and dry Neurologic: PERRL, EOMI, accommodation nl, no face palsy, no dysarthria Psychiatric: A+Ox3, euthymic affect Lymphatic: no cervical or axillary lymphadenopathy Results & Data ([facility]) Vital Signs (Past 12 Hours) Vital Signs Temp Pulse Resp BP Pulse Ox 07/13/20 11:58 36.6 C 75 18 146/81 H 97 07/13/20 08:09 36.8 C 69 18 112/65 95 07/13/20 04:49 36.7 C 70 18 103/67 97 Laboratory Results WBC8.82, Hb 12, Hct 36, Platelets 125, Na 143, K 3.9, BUN 11, Cr 0.[address] abd/pelvis (non contrast) 07/12/20: 1. Findings are consistent with a nonspecific colitis of the left colon. This could be on an infectious, inflammatory, or ischemic basis and clinical correlation will be required. 2. Marked splenomegaly. 3. Cardiomegaly and small pericardial effusion. 4. Mild colonic diverticulosis without CT evidence of acute diverticulitis. 5. Additional findings as above.
[2020-07-13 16:59] LABS: Hematocrit (blood only) 39.7 % (42-52); Hemoglobin 13.2 g/dL (14.0-18.0)
[2020-07-13] MEDS ORDERED: ATORVASTATIN 40 MG TAB PO SCH (21:00)
[2020-07-14] MEDS: SODIUM CHLORIDE 0.9% 1000ML 1,000 ML IV SCH (00:02)
[2020-07-14 05:45] LABS: Hematocrit (blood only) 35.7 % (42-52); Hemoglobin 11.9 g/dL (14.0-18.0); Mean Corpuscular Hemoglobin 29.7 pg (25-34); Mean Corpuscular Hgb Conc 33.3 g/dL (32-36); Mean Platelet Volume 9.4 fL (7.4-10.4); Platelet Count 105 K/uL (130-400); RDW Coefficient of Variation 13.8 % (11.5-14.5); RDW Standard Deviation 45.4 fL (36.4-46.3); Red Blood Count 4.01 M/uL (4.7-6.1); White Blood Count 7.84 K/uL (4.8-10.8)
[2020-07-14 06:23] LABS: Calcium 8.4 mg/dl (8.5-10.1); Creatinine Clr Calc Pharmacy 97.4 ml/min; Est GFR (African American) 105.6; Est GFR (Non-African American) 91.1; Potassium 3.8 mmol/L (3.5-5.1)
[2020-07-14] MEDS: METOPROLOL SUCC 25MG EXT REL TAB PO SCH (08:11)
[2020-07-14] MEDS ORDERED: APIXABAN 5 MG TABLET PO SCH (11:00)
--- NOTE | 2020-07-14 11:26 | Discharge Summary ---
Date of Service July 14, 2020 Admission HPI Per Admitting Provider HISTORY OF PRESENT ILLNESS: This is an 84-year-old male with past medical history significant for hyperlipidemia, CAD, moderate aortic wall stenosis, bicuspid aortic valve, gout, osteoarthritis, history of prostate cancer, who was recently in the hospital for rapid AFib and was started on Eliquis and at that time also was treated for pneumonia. Finished one-week course of antibiotics last . Comes because of diarrhea and rectal bleed. The patient says since yesterday night he has some diarrhea and today when he wiped he noticed some blood in the mucus, which prompted him to come to the ER and since today morning, he is not taking any aspirin or his Eliquis. Denies any abdominal pain, no nausea, no vomiting, no chest pain or shortness of breath. No cough, no fever, no chills, no headache, no blurred vision, no earache, no runny nose, no sore throat. Currently resting comfortably and hemodynamically stable. Ambulates without any support. Lives with his . Admission Exam Per Admitting Provider PHYSICAL EXAMINATION: GENERAL: The patient is of moderate build, not in acute distress. VITAL SIGNS: Temperature 36.8, pulse 83, respiratory rate 20, blood pressure 134/80, oxygen 99% on room air. HEENT: Pupils are equal, round, reactive to light. Oral mucosa somewhat dry. NECK: No JVD, no neck masses. CARDIOVASCULAR: S1, S2 heard, regular rate and rhythm, no murmur, no gallop. RESPIRATORY SYSTEM: Normal AP diameter. No accessory muscle use. No wheezing, no crackles. ABDOMEN: Soft, bowel sounds present, nontender. No distention. CENTRAL NERVOUS SYSTEM: Cranial nerves II-XII grossly intact. Nonfocal. EXTREMITIES: No edema, no erythema. 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 Atrial fibrillation, on Eliquis Discharge Exam CONSTITUTIONAL: WNWD, vitals stable, generally well-appearing EYES: normal conjunctivae, no scleral icterus ENT: external ear and nose normal, MMM RESPIRATORY: clear to auscultation bilaterally, no crackles, rales or wheezes, normal respiratory effort CARDIOVASCULAR: regular rate and rhythm, S1 and 2 heard without murmurs, gallops or rubs, no JVD, no peripheral edema GASTROINTESTINAL: soft, mild TTP in LUQ, nondistended MUSCULOSKELETAL: strength 5/5 throughout, head is normocephalic and atraumatic SKIN: warm and dry NEUROLOGIC: CN 2-12 grossly intact, no sensory deficit, normal cognition, normal speech PSYCHIATRIC: alert cooperative and oriented to person, place and time. Discharge Data Allergies Allergy/AdvReac Type Severity Reaction Status Date / Time TISHA Inhibitors AdvReac Mild COUGH Verified 06/29/20 19:05 Consultations 07/12/20 21:01 ED Decision to Admit Stat 07/13/20 08:00 Consult Gastroenterology Routine Ordered Studies Laboratory Results WBC 7.84 K/uL (4.8-10.8) 07/14/20 05:29 RBC 4.01 M/uL (4.7-6.1) L 07/14/20 05:29 Hgb 11.9 g/dL (14.0-18.0) L 07/14/20 05:29 Hct 35.7 % (42-52) L 07/14/20 05:29 MCV 89.0 fL (80-100) 07/14/20 05:29 MCH 29.7 pg (25-34) 07/14/20 05:29 MCHC 33.3 g/dL (32-36) 07/14/20 05:29 RDW Std Deviation 45.4 fL (36.4-46.3) 07/14/20 05:29 RDW Coeff of [place] 13.8 % (11.5-14.5) 07/14/20 05:29 Plt Count 105 K/uL (130-400) L 07/14/20 05:29 MPV 9.4 fL (7.4-10.4) 07/14/20 05:29 Immature Gran % (Auto) 0.1 % 07/13/20 05:42 Neut % (Auto) 36.4 % 07/13/20 05:42 Lymph % (Auto) 59.1 % 07/13/20 05:42 Bay % (Auto) 3.6 % 07/13/20 05:42 Eos % (Auto) 0.7 % 07/13/20 05:42 Baso % (Auto) 0.1 % 07/13/20 05:42 Neut # (Auto) 3.21 K/uL (1.4-6.5) 07/13/20 05:42 Lymph # (Auto) 5.21 K/uL (1.2-3.4) H 07/13/20 05:42 Bay # (Auto) 0.32 K/uL (0.11-0.59) 07/13/20 05:42 Eos # (Auto) 0.06 K/uL (0-0.5) 07/13/20 05:42 Baso # (Auto) 0.01 K/uL (0-0.2) 07/13/20 05:42 Immature Gran # (Auto) 0.01 K/uL (0.00-0.02) 07/13/20 05:42 Smudge Cells Present 07/13/20 05:42 Blood Smear Review 07/13/20 05:42 PT 10.3 Seconds (9.0-12.0) 07/12/20 19:04 INR 1.0 (0.9-1.1) 07/12/20 19:04 APTT 22.8 Seconds (21.0-31.0) 07/12/20 19:04 PTT Ratio 0.9 07/12/20 19:04 Sodium 143 mmol/L (136-145) 07/14/20 05:29 Potassium 3.8 mmol/L (3.5-5.1) 07/14/20 05:29 Chloride 111 mmol/L (98-107) H 07/14/20 05:29 Carbon Dioxide 29 mmol/L (21-32) 07/14/20 05:29 Anion Gap 3.0 (3-11) 07/14/20 05:29 BUN 10 mg/dl (7-18) 07/14/20 05:29 Creatinine 0.63 mg/dl (0.6-1.4) 07/14/20 05:29 Est Cr Clr Drug Dosing 97.4 ml/min 07/14/20 05:29 Est GFR ( Amer) 105.6 07/14/20 05:29 Est GFR (Non-Af Amer) 91.1 07/14/20 05:29 BUN/Creatinine Ratio 16.0 (10-20) 07/14/20 05:29 Glucose 109 mg/dl (70-99) H 07/14/20 05:29 Calcium 8.4 mg/dl (8.5-10.1) L 07/14/20 05:29 Magnesium 2.0 mg/dl (1.8-2.4) 07/13/20 05:42 Total Bilirubin 0.7 mg/dl (0.2-1) 07/12/20 19:04 AST 14 U/L (15-37) L 07/12/20 19:04 ALT 23 U/L (12-78) 07/12/20 19:04 Alkaline Phosphatase 78 U/L (45-117) 07/12/20 19:04 Troponin I < 0.015 ng/ml (0-0.045) 07/12/20 19:04 Total Protein 6.4 gm/dl (6.4-8.2) 07/12/20 19:04 Albumin 3.6 gm/dl (3.4-5.0) 07/12/20 19:04 Globulin 2.8 gm/dl (2.5-4.0) 07/12/20 19:04 Albumin/Globulin Ratio 1.3 (0.9-2) 07/12/20 19:04 Lipase 184 U/L (73-393) 07/12/20 19:04 POC Stool Occult Blood Cancelled 07/12/20 11:00 Stl C. diff Tox B Gene Negative Cdiff Gene (Neg) 07/12/20 11:00 COVID-19 Eval Order CovFluRsv at [facility] 07/12/20 Unknown SARS-CoV-2 (PCR) NEGATIVE (Negative) 07/12/20 Unknown Influenza Type A (PCR) Negative (Neg) 07/12/20 Unknown Influenza Type B (PCR) Negative (Neg) 07/12/20 Unknown RSV (RT-PCR) Negative (Neg) 07/12/20 Unknown Blood Type A Positive 07/12/20 19:05 Antibody Screen NEGATIVE 07/12/20 19:05 Impressions Abdomen/Pelvis CT 07/12/20 18:35 CT SCAN OF THE ABDOMEN AND PELVIS WITH IV CONTRAST CLINICAL HISTORY: Diarrhea. Hematochezia. COMPARISON STUDY: No priors. TECHNIQUE: Following the IV administration of 89 cc of Optiray 300, CT scan of the abdomen and pelvis is performed from the lung bases to the proximal femora. Images are reviewed in the axial, sagittal, and coronal planes. IV contrast was administered without complication. A dose lowering technique was utilized adhering to the principles of ALARA. CT DOSE: 698.30 mGy.cm FINDINGS: Lung bases: The heart is enlarged noting a small pericardial effusion. The coronary arteries are densely calcified. Calcified left hilar nodes are partially imaged. There is a small hiatal hernia. The lung bases are clear noting bibasilar scarring/atelectasis. Liver: The contrast-enhanced liver is normal in size, contour, and attenuation. There is no intrahepatic biliary ductal dilatation. The hepatic veins and portal veins are patent. Gallbladder: Unremarkable. Spleen: The spleen is enlarged, measuring 18.5 cm in length. Pancreas: Moderately atrophic and grossly unremarkable. Adrenal glands: Unremarkable. Kidneys: The contrast enhanced kidneys are atrophic and without hydronephrosis. The kidneys enhance symmetrically. A 2.8 cm cyst is noted in the right upper pole. Additional subcentimeter cortical hypodensities also likely represent cysts but are too small for definitive characterization. Abdominal vasculature: The abdominal aorta is normal in course and caliber noting advanced atherosclerotic calcification. 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 Bowel: There is mild colonic diverticulosis without CT evidence of acute diverticulitis. No bowel obstruction is seen. There is wall thickening and edema identified involving the left colon. This extends from the splenic flexure to the distal descending colon, and there is associated pericolonic inflammation. There is no pneumatosis intestinalis or portal venous gas. The appendix is well-visualized and normal. Peritoneum: There is no intraperitoneal free air or abdominal ascites. Lymphadenopathy: None. Pelvic viscera: The prostate gland is mildly enlarged and heterogeneous noting median lobe hypertrophy. The bladder wall is thickened and trabeculated indicating chronic outlet obstruction. Skeletal structures: The skeletal structures are osteopenic. There is moderate to advanced lumbosacral spondylosis and mild scoliosis. No lytic or blastic lesions are seen. IMPRESSION: 1. Findings are consistent with a nonspecific colitis of the left colon. This could be on an infectious, inflammatory, or ischemic basis and clinical correlation will be required. 2. Marked splenomegaly. 3. Cardiomegaly and small pericardial effusion. 4. Mild colonic diverticulosis without CT evidence of acute diverticulitis. 5. Additional findings as above. ACT 112: Negative or not required by law. Electronically signed by: Krzysztof Tapia M.D. 07/12/2020 9:04 PM Hospital Course (1) Hematochezia: (2) White blood cell abnormality: (3) Atrial fibrillation: (4) Coronary atherosclerosis: The patient is an 84-year-old man recently placed on Eliquis for diagnosis of atrial fibrillation who presented with hematochezia and loose stool. He had recently finished a course of Augmentin for pneumonia 4 days prior to arrival. C. difficile toxin was checked and negative. In addition he normally takes aspirin with a history of coronary disease. He was admitted to the hospitalist service and GI was consulted. Eliquis and aspirin were put on hold. A CT of the abdomen pelvis question of mild left-sided colitis with no perforation or signs of significant diverticulitis. He remained oriented and hemodynamically stable with a hemoglobin that was 13.4 then 12.9 the following day. Gastroenterology attending felt abrupt onset of rectal bleeding was consistent with recent start of Eliquis, with overall picture likely secondary to ischemic colitis. On hospital day 2 symptoms had had a largely clinically resolved. Diet was advanced, Eliquis was restarted and hemoglobin remained stable. Plan for outpatient colonoscopy in 4 weeks with [facility] gastroenterology. 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 Flow cytometry was pending at time of discharge. Splenomegaly seen on CT of the abdomen and pelvis was likely secondary to this. Recommended PCP to arrange for hematology follow-up for form al diagnosis and recommendations. This was conveyed to the patient who verbalized understanding with intent to comply. At time of discharge she was hemodynamically stable and afebrile and tolerating solid food. He was feeling significantly better overall and had a solid nonbloody stool prior to discharge. He was sent home in stable condition with close primary care follow-up recommended. 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 Atrial fibrillation, on Eliquis Condition on Discharge: Good Activity: Resume your previous activity Non-emergency contact: Primary Care Provider Call non-emergency contact if: you have any medication questions, your symptoms worsen, your pain is not controlled, your pain is worsening, your pain is unusual for you, your pain is concerning for you and you have a fever Follow-up/Referrals: Rahul Post DO [Primary Care Provider] - (Date & Time 07/19/2020 11:20 AM Provider Rahul Post DO Department General Internal Medicine [facility] ) Diet: Regular Addtl Attending Provider Instructions: Please take all medications as instructed on discharge list below. Please advance diet as tolerated. It is recommended that you follow-up with [facility] gastroenterology in 4 to 6 weeks for an outpatient colonoscopy. As discussed, you were found to have an abnormality in your white blood cells that should be follow-up with a knife glazer. Please obtain a referral from your primary care doctor at follow-up. It is recommended that you follow-up with your primary care doctor within 1 week of discharge from the hospital. This will be important to ensure referrals are in place, and to make sure you are still doing well on the Eliquis without any further bleeding. Of note, you did have some residual evidence of pneumonia on your CT scan of your chest while in the hospital. This is expected with your recent pneumonia infection, however, further imaging may be recommended to ensure complete resolution of pneumonia in the next several weeks. It was a pleasure taking care of you! Please call if you have any questions or problems. You can reach a [facility] hospitalist on duty at [facility] 24 hours a day by calling [phone]. Take care of yourself. Dejah Cortés DO [facility] Hospitalist Pending Studies at Discharge: Yes Studies:: Flow cytometry, stool culture pending at discharge. Stand-Alone Forms: My [facility] [address] Medications and DC Order Prescriptions: Continued atorvastatin [Lipitor] 40 mg Tablet 40 mg PO HS RF: 0 aspirin 81 mg Tablet,Delayed Release (Dr/Ec) 81 mg PO 3XWK RF: 0 apixaban 5 mg tablet 5 mg PO BID Qty: 60 RF: 0 metoprolol succinate [Toprol XL] 25 mg tablet extended release 24 hr 12.5 mg PO BID Qty: 30 RF: 0 Discharge Orders: Discharge Order (Routine); Ordered 07/14/20 Ordered By: Dejah Cortés Admission Data Admit Date/Time: 07/12/20 22:53 Attending Provider: Dejah Cortés Admit Provider: Kelvin Saucedo Primary Care Provider: Rahul Post Other Providers: Kelvin Saucedo ; Han Roberts
== END 2020-07-14 13:30 | disposition home or self-care (01) ==
LOC: ED 18:03 → INTOOBSV 22:53 → 2S 22:53 → SUATTDRO 22:53 → 2S 23:49

== ENCOUNTER 2025-01-19 14:21 | Observation (INO) ==
[2025-01-19] MEDS ORDERED: VANCOMYCIN CONSULT ACTIVE PRN ×2 (14:50→23:16)
[2025-01-19 15:04] LABS: Hematocrit (blood only) 38.6 % (42.0-52.0); Hemoglobin 12.0 g/dl (14.0-18.0); Mean Corpuscular Hemoglobin 27.3 pg (25.0-34.0); Mean Corpuscular Volume 87.7 fL (80.0-100.0); Platelet Count 147 K/uL (130-400); RDW Standard Deviation 56.1 fL (36.4-46.3); Red Blood Count 4.40 M/uL (4.70-6.10); White Blood Count 17.00 K/ul (4.8-10.8)
--- NOTE | 2025-01-19 15:17 | XRay Report ---
XR chest 1V portable CLINICAL HISTORY: Sepsis COMPARISON STUDY: 11/15/2024 FINDINGS: Stable cardiomegaly with pulmonary vascular congestion. There is mild stranding of the righ t lung base with partial obscuration of the right hemidiaphragm. No other consolidation or pleural ef fusion seen. No pneumothorax. IMPRESSION: Atelectasis versus early pneumonia right lung base. ACT 112: Negative or not required by law. Electronically signed by: Danny Meza M.D. 01/19/2025 3:15 PM
--- NOTE | 2025-01-19 15:33 | Emergency Department Note ---
History of Present Illness General Chief complaint: Skin Problem Stated complaint: CELLULITIS Time Seen by Provider: 01/19/25 14:33 Source: patient Mode of arrival: ambulatory History of Present Illness Patient is an 89 y.o. M with h/o gout, osteomyelitis, COPD, CAD, CHF, pulmonary HTN, atrial fibrillation on Eliquis who presents for right lower extremity swelling and redness that started on Sunday. Atraumatic. Extends from his right foot to just below his right knee. Similar presentation in the past related to cellulitis. Denies any fevers, chills, body aches, nausea, vomiting, chest pain or shortness of breath. no history of DVT. He did not take his Eliquis the past three days. Also complaints of gout pain and wound to his R 2nd toe. Home Medications Medication Instructions Recorded Confirmed Type atorvastatin 40 mg tablet (Lipitor) 40 mg PO HS 06/18/20 01/19/25 History apixaban 5 mg tablet 5 mg PO BID #60 tabs 06/30/20 01/19/25 Rx mecobalamin (vitamin B12) 1,000 1,000 mcg sublingual DAILY 03/20/24 01/19/25 History mcg disintegrating tablet,sublingual digoxin 125 mcg (0.125 mg) tablet 125 mcg PO 3XWK 03/31/24 01/19/25 History umeclidinium 62.5 mcg-vilanterol 1 inh inhalation QAM 08/26/24 01/19/25 History 25 mcg/actuation powdr for inhalation (Anoro Ellipta) spironolactone 25 mg tablet 12.5 mg PO QAM 10/29/24 01/19/25 History vit C 250 mg-vit E 90 mg-zinc 40 1 tab PO BID 10/29/24 01/19/25 History mg-copper 1 [id number]-inqohl capsule (PreserVision AREDS-2) lactobacillus combo no.11 15 1 cap PO DAILY #30 caps 10/30/24 01/19/25 Rx billion cell sprinkle capsule (Probiotic) lidocaine 5 % topical patch 1 patch topical DAILY PRN pain #15 11/15/24 01/19/25 Rx ea empagliflozin 10 mg tablet 10 mg PO QAM #90 tabs 11/18/24 01/19/25 Rx (Jardiance) metoprolol succinate 25 mg 25 mg PO QAM 11/29/24 01/19/25 History tablet,extended release 24 hr metoprolol succinate 50 mg 50 mg PO AMHS 11/29/24 01/19/25 History tablet,extended release 24 hr allopurinol 100 mg tablet 300 mg PO QAM 01/19/25 01/19/25 History colchicine 0.6 mg capsule 0.6 mg PO DAILY PRN Other 01/19/25 01/19/25 History torsemide 20 mg tablet 20 mg PO UD 01/19/25 01/19/25 History Allergies Allergy/AdvReac Type Severity Reaction Status Date / Time TISHA Inhibitors AdvReac Mild COUGH Verified 10/29/24 17:40 Past Med/Surg History Problem List (Updated 01/19/25 @ 18:09 by Casa Arora MD) Cellulitis of leg, right (Acute) Acute gout Cellulitis of right leg Toe pain, right (Acute) Infected abrasion of second toe of right foot (Acute) Osteomyelitis (Acute) Chronic tophaceous gout of right foot Toe infection Complex sleep apnea syndrome Emphysema lung Witnessed episode of apnea Nocturnal hypoxemia CAD (coronary artery disease) (HFpEF) heart failure with preserved ejection fraction SOBOE (shortness of breath on exertion) Right ventricular dysfunction Pulmonary HTN Atrial flutter with rapid ventricular response Acute heart failure with preserved ejection fraction Acute HF (heart failure) Atrial fibrillation with RVR (Acute) Encounter for pre-operative examination Encounter for pre-operative examination White blood cell abnormality Atrial fibrillation Community acquired pneumonia Encounter for pre-operative examination 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 Weaver On anticoagulant therapy eliquis bid Food impaction of esophagus History of pneumonia AROUND TIME OF AFIB, ? SPRING 2020 "SHOULD BE IN MY RECORDS" Moderate aortic stenosis Bicuspid aortic valve Chronic ischemic heart disease Paroxysmal atrial fibrillation with rapid ventricular response Atrial fibrillation with rapid ventricular response ? SPRING 2020 "SHOULD BE IN MY RECORDS" NO HX CARDIOVERSION, POSSIBLE CAUSE PNEUMONIA PER PT Osteoarthritis Prostate cancer 5 yrs ago > radiation Myocardial Infarction 1993 > RCA > Atenolol and Lipitor for this Dyslipidemia Surgical History History of left cataract extraction (~03/28/21) History of esophagogastroduodenoscopy (EGD) last 06/14/21 @ [facility] for food bolus History of right cataract extraction History of cardiac cath X3 TOTAL 1993 NO STENT(S) , 1998 CATH DID NOT CONSENT FOR STENT...SECOND CATH IN 1998 STENT X1 History of colonoscopy History of tooth extraction History of total knee replacement left H/O heart artery stent 1998 > x1 > follows with Dr. Weaver Family History Brother Colon cancer Other No family history of adverse response to anesthesia Social History Smoking Status: Former smoker Tobacco Type: Cigarettes Cigarettes Per Day: 2 PPD / Quit 50 years ago; Second Hand Exposure: No; Do You Dip or Chew Tobacco: No; Hx Alcohol Use: Yes Alcohol type: hard liquor Hx Substance Use: No Preferred Language: Bolivian Communication Ability: Effective Bar Porter Required: No Beliefs That Will Affect Care: None Current Living Situation: Spouse Current Living Situation Comment: Lives w/ spouse Feels Safe at Home: Yes Assistive Devices: CPAP and Oxygen - at Night Review of Systems Review of systems negative outside of positive findings mentioned in HPI. Physical Exam Vital Signs Vital Signs - 24 hr 01/19/25 14:21 01/19/25 14:23 01/19/25 14:39 Temperature 36 C L Temperature Source Temporal Artery Scan Pulse Rate 99 H 103 H Pulse Rate [Right Finger] 96 H Pulse Rate from SpO2 Sensor Respiratory Rate 18 18 13 Respiratory Effort / Characteristics Non-Labored Spontaneous Respiratory Depth Normal Blood Pressure 98/62 L Blood Pressure [Right Arm] 100/71 Blood Pressure Mean 74 Blood Pressure Mean [Right Arm] 80 Blood Pressure Position Sitting Pulse Oximetry 94 94 Oxygen Delivery Method Room Air Room Air Sepsis Recent Fever Within 48 Hours No Sepsis New/Unexplained Change in Mental Status N/A Sepsis Action Taken by Nursing No Action Required 01/19/25 14:42 01/19/25 14:50 01/19/25 14:50 Temperature Temperature Source Pulse Rate 96 H 93 H Pulse Rate [Right Finger] 93 H Pulse Rate from SpO2 Sensor Respiratory Rate 17 18 18 Respiratory Effort / Characteristics Respiratory Depth Blood Pressure Blood Pressure [Right Arm] 100/71 Blood Pressure Mean Blood Pressure Mean [Right Arm] 80 Blood Pressure Position Pulse Oximetry 90 97 Oxygen Delivery Method Room Air Room Air Sepsis Recent Fever Within 48 Hours Sepsis New/Unexplained Change in Mental Status Sepsis Action Taken by Nursing 01/19/25 14:51 01/19/25 15:00 01/19/25 15:09 Temperature Temperature Source Pulse Rate 99 H 93 H 94 H Pulse Rate [Right Finger] Pulse Rate from SpO2 Sensor 103 H 91 H 97 H Respiratory Rate 16 24 15 Respiratory Effort / Characteristics Respiratory Depth Blood Pressure Blood Pressure [Right Arm] Blood Pressure Mean Blood Pressure Mean [Right Arm] Blood Pressure Position Pulse Oximetry 95 96 94 Oxygen Delivery Method Sepsis Recent Fever Within 48 Hours Sepsis New/Unexplained Change in Mental Status Sepsis Action Taken by Nursing 01/19/25 15:09 01/19/25 15:09 01/19/25 15:09 Temperature Temperature Source Pulse Rate Pulse Rate [Right Finger] Pulse Rate from SpO2 Sensor Respiratory Rate Respiratory Effort / Characteristics Respiratory Depth Blood Pressure 100/71 100/71 100/71 Blood Pressure [Right Arm] Blood Pressure Mean 88 88 88 Blood Pressure Mean [Right Arm] Blood Pressure Position Pulse Oximetry Oxygen Delivery Method Sepsis Recent Fever Within 48 Hours Sepsis New/Unexplained Change in Mental Status Sepsis Action Taken by Nursing 01/19/25 15:09 01/19/25 15:09 01/19/25 15:09 Temperature Temperature Source Pulse Rate Pulse Rate [Right Finger] Pulse Rate from SpO2 Sensor Respiratory Rate Respiratory Effort / Characteristics Respiratory Depth Blood Pressure 100/71 100/71 100/71 Blood Pressure [Right Arm] Blood Pressure Mean 88 88 88 Blood Pressure Mean [Right Arm] Blood Pressure Position Pulse Oximetry Oxygen Delivery Method Sepsis Recent Fever Within 48 Hours Sepsis New/Unexplained Change in Mental Status Sepsis Action Taken by Nursing 01/19/25 15:12 01/19/25 15:15 01/19/25 15:15 Temperature Temperature Source Pulse Rate 88 Pulse Rate [Right Finger] Pulse Rate from SpO2 Sensor 90 Respiratory Rate 17 Respiratory Effort / Characteristics Respiratory Depth Blood Pressure 94/72 L 94/72 L Blood Pressure [Right Arm] Blood Pressure Mean 81 81 Blood Pressure Mean [Right Arm] Blood Pressure Position Pulse Oximetry 92 Oxygen Delivery Method Sepsis Recent Fever Within 48 Hours Sepsis New/Unexplained Change in Mental Status Sepsis Action Taken by Nursing 01/19/25 15:15 01/19/25 15:15 01/19/25 15:15 Temperature Temperature Source Pulse Rate Pulse Rate [Right Finger] Pulse Rate from SpO2 Sensor Respiratory Rate Respiratory Effort / Characteristics Respiratory Depth Blood Pressure 94/72 L 94/72 L 94/72 L Blood Pressure [Right Arm] Blood Pressure Mean 81 81 81 Blood Pressure Mean [Right Arm] Blood Pressure Position Pulse Oximetry Oxygen Delivery Method Sepsis Recent Fever Within 48 Hours Sepsis New/Unexplained Change in Mental Status Sepsis Action Taken by Nursing 01/19/25 15:15 01/19/25 15:21 01/19/25 15:30 Temperature Temperature Source Pulse Rate 90 94 H 88 Pulse Rate [Right Finger] Pulse Rate from SpO2 Sensor 92 H 92 H 88 Respiratory Rate 18 27 H 21 Respiratory Effort / Characteristics Respiratory Depth Blood Pressure Blood Pressure [Right Arm] Blood Pressure Mean Blood Pressure Mean [Right Arm] Blood Pressure Position Pulse Oximetry 94 94 95 Oxygen Delivery Method Sepsis Recent Fever Within 48 Hours Sepsis New/Unexplained Change in Mental Status Sepsis Action Taken by Nursing 01/19/25 15:30 01/19/25 15:30 01/19/25 15:30 Temperature Temperature Source Pulse Rate Pulse Rate [Right Finger] Pulse Rate from SpO2 Sensor Respiratory Rate Respiratory Effort / Characteristics Respiratory Depth Blood Pressure 92/69 L 92/69 L 92/69 L Blood Pressure [Right Arm] Blood Pressure Mean 74 74 74 Blood Pressure Mean [Right Arm] Blood Pressure Position Pulse Oximetry Oxygen Delivery Method Sepsis Recent Fever Within 48 Hours Sepsis New/Unexplained Change in Mental Status Sepsis Action Taken by Nursing 01/19/25 15:30 01/19/25 15:30 01/19/25 15:30 Temperature Temperature Source Pulse Rate Pulse Rate [Right Finger] Pulse Rate from SpO2 Sensor Respiratory Rate Respiratory Effort / Characteristics Respiratory Depth Blood Pressure 92/69 L 92/69 L 92/69 L Blood Pressure [Right Arm] Blood Pressure Mean 74 74 74 Blood Pressure Mean [Right Arm] Blood Pressure Position Pulse Oximetry Oxygen Delivery Method Sepsis Recent Fever Within 48 Hours Sepsis New/Unexplained Change in Mental Status Sepsis Action Taken by Nursing 01/19/25 15:30 01/19/25 15:30 01/19/25 15:42 Temperature Temperature Source Pulse Rate 85 Pulse Rate [Right Finger] Pulse Rate from SpO2 Sensor 82 Respiratory Rate 22 Respiratory Effort / Characteristics Respiratory Depth Blood Pressure 92/69 L 92/69 L Blood Pressure [Right Arm] Blood Pressure Mean 74 74 Blood Pressure Mean [Right Arm] Blood Pressure Position Pulse Oximetry 90 Oxygen Delivery Method Sepsis Recent Fever Within 48 Hours Sepsis New/Unexplained Change in Mental Status Sepsis Action Taken by Nursing 01/19/25 15:45 01/19/25 15:45 01/19/25 15:45 Temperature Temperature Source Pulse Rate 89 Pulse Rate [Right Finger] Pulse Rate from SpO2 Sensor 91 H Respiratory Rate 30 H Respiratory Effort / Characteristics Respiratory Depth Blood Pressure 92/63 L 92/63 L Blood Pressure [Right Arm] Blood Pressure Mean 74 74 Blood Pressure Mean [Right Arm] Blood Pressure Position Pulse Oximetry 91 Oxygen Delivery Method Sepsis Recent Fever Within 48 Hours Sepsis New/Unexplained Change in Mental Status Sepsis Action Taken by Nursing 01/19/25 15:45 01/19/25 15:45 01/19/25 15:45 Temperature Temperature Source Pulse Rate Pulse Rate [Right Finger] Pulse Rate from SpO2 Sensor Respiratory Rate Respiratory Effort / Characteristics Respiratory Depth Blood Pressure 92/63 L 92/63 L 92/63 L Blood Pressure [Right Arm] Blood Pressure Mean 74 74 74 Blood Pressure Mean [Right Arm] Blood Pressure Position Pulse Oximetry Oxygen Delivery Method Sepsis Recent Fever Within 48 Hours Sepsis New/Unexplained Change in Mental Status Sepsis Action Taken by Nursing 01/19/25 15:45 01/19/25 15:51 01/19/25 16:00 Temperature Temperature Source Pulse Rate 92 H Pulse Rate [Right Finger] Pulse Rate from SpO2 Sensor 91 H Respiratory Rate 19 Respiratory Effort / Characteristics Respiratory Depth Blood Pressure 92/63 L 102/67 Blood Pressure [Right Arm] Blood Pressure Mean 74 68 Blood Pressure Mean [Right Arm] Blood Pressure Position Pulse Oximetry 93 Oxygen Delivery Method Sepsis Recent Fever Within 48 Hours Sepsis New/Unexplained Change in Mental Status Sepsis Action Taken by Nursing 01/19/25 16:00 01/19/25 16:00 01/19/25 16:00 Temperature Temperature Source Pulse Rate Pulse Rate [Right Finger] Pulse Rate from SpO2 Sensor Respiratory Rate Respiratory Effort / Characteristics Respiratory Depth Blood Pressure 102/67 102/67 102/67 Blood Pressure [Right Arm] Blood Pressure Mean 68 68 68 Blood Pressure Mean [Right Arm] Blood Pressure Position Pulse Oximetry Oxygen Delivery Method Sepsis Recent Fever Within 48 Hours Sepsis New/Unexplained Change in Mental Status Sepsis Action Taken by Nursing 01/19/25 16:00 01/19/25 16:00 01/19/25 16:12 Temperature Temperature Source Pulse Rate 88 Pulse Rate [Right Finger] Pulse Rate from SpO2 Sensor 92 H 87 Respiratory Rate 22 Respiratory Effort / Characteristics Respiratory Depth Blood Pressure 102/67 Blood Pressure [Right Arm] Blood Pressure Mean 68 Blood Pressure Mean [Right Arm] Blood Pressure Position Pulse Oximetry 96 92 Oxygen Delivery Method Sepsis Recent Fever Within 48 Hours Sepsis New/Unexplained Change in Mental Status Sepsis Action Taken by Nursing 01/19/25 16:15 01/19/25 16:15 01/19/25 16:15 Temperature Temperature Source Pulse Rate Pulse Rate [Right Finger] Pulse Rate from SpO2 Sensor 88 Respiratory Rate Respiratory Effort / Characteristics Respiratory Depth Blood Pressure 90/69 L 90/69 L Blood Pressure [Right Arm] Blood Pressure Mean 78 78 Blood Pressure Mean [Right Arm] Blood Pressure Position Pulse Oximetry 95 Oxygen Delivery Method Sepsis Recent Fever Within 48 Hours Sepsis New/Unexplained Change in Mental Status Sepsis Action Taken by Nursing 01/19/25 16:15 01/19/25 16:15 01/19/25 16:15 Temperature Temperature Source Pulse Rate Pulse Rate [Right Finger] Pulse Rate from SpO2 Sensor Respiratory Rate Respiratory Effort / Characteristics Respiratory Depth Blood Pressure 90/69 L 90/69 L 90/69 L Blood Pressure [Right Arm] Blood Pressure Mean 78 78 78 Blood Pressure Mean [Right Arm] Blood Pressure Position Pulse Oximetry Oxygen Delivery Method Sepsis Recent Fever Within 48 Hours Sepsis New/Unexplained Change in Mental Status Sepsis Action Taken by Nursing 01/19/25 16:24 01/19/25 16:30 01/19/25 16:30 Temperature Temperature Source Pulse Rate 94 H 85 Pulse Rate [Right Finger] Pulse Rate from SpO2 Sensor Respiratory Rate 28 H 31 H Respiratory Effort / Characteristics Respiratory Depth Blood Pressure 116/73 Blood Pressure [Right Arm] Blood Pressure Mean 81 Blood Pressure Mean [Right Arm] Blood Pressure Position Pulse Oximetry Oxygen Delivery Method Sepsis Recent Fever Within 48 Hours Sepsis New/Unexplained Change in Mental Status Sepsis Action Taken by Nursing 01/19/25 16:30 01/19/25 16:30 01/19/25 16:30 Temperature Temperature Source Pulse Rate Pulse Rate [Right Finger] Pulse Rate from SpO2 Sensor Respiratory Rate Respiratory Effort / Characteristics Respiratory Depth Blood Pressure 116/73 116/73 116/73 Blood Pressure [Right Arm] Blood Pressure Mean 81 81 81 Blood Pressure Mean [Right Arm] Blood Pressure Position Pulse Oximetry Oxygen Delivery Method Sepsis Recent Fever Within 48 Hours Sepsis New/Unexplained Change in Mental Status Sepsis Action Taken by Nursing 01/19/25 16:30 01/19/25 16:42 01/19/25 16:45 Temperature Temperature Source Pulse Rate 89 Pulse Rate [Right Finger] Pulse Rate from SpO2 Sensor Respiratory Rate 20 Respiratory Effort / Characteristics Respiratory Depth Blood Pressure 116/73 104/66 Blood Pressure [Right Arm] Blood Pressure Mean 81 77 Blood Pressure Mean [Right Arm] Blood Pressure Position Pulse Oximetry Oxygen Delivery Method Sepsis Recent Fever Within 48 Hours Sepsis New/Unexplained Change in Mental Status Sepsis Action Taken by Nursing 01/19/25 16:45 01/19/25 16:45 01/19/25 16:45 Temperature Temperature Source Pulse Rate Pulse Rate [Right Finger] Pulse Rate from SpO2 Sensor Respiratory Rate Respiratory Effort / Characteristics Respiratory Depth Blood Pressure 104/66 104/66 104/66 Blood Pressure [Right Arm] Blood Pressure Mean 77 77 77 Blood Pressure Mean [Right Arm] Blood Pressure Position Pulse Oximetry Oxygen Delivery Method Sepsis Recent Fever Within 48 Hours Sepsis New/Unexplained Change in Mental Status Sepsis Action Taken by Nursing 01/19/25 16:45 01/19/25 16:45 Temperature Temperature Source Pulse Rate 81 Pulse Rate [Right Finger] Pulse Rate from SpO2 Sensor Respiratory Rate 22 Respiratory Effort / Characteristics Respiratory Depth Blood Pressure 104/66 Blood Pressure [Right Arm] Blood Pressure Mean 77 Blood Pressure Mean [Right Arm] Blood Pressure Position Pulse Oximetry Oxygen Delivery Method Sepsis Recent Fever Within 48 Hours Sepsis New/Unexplained Change in Mental Status Sepsis Action Taken by Nursing See below. Constitutional WD/WN, vitals as above Respiratory normal respiratory effort, lungs clear to auscultation Cardiovascular Rate/Rhythm: + irregularly irregular Heart Sounds: normal S1 and normal S2 Vessels: dorsalis pedis pulses present Musculoskeletal Circumfrential edema of the RLE, non-pitting Skin Erythematous changes noted to the right lower extremity extending from the right ankle to below the right knee, tophaceous gout wound to the dorsal surface of the R 2nd toe Course Administered Medications Discontinued Medications Vancomycin HCl 1,750 mg/ (Sodium Chloride) 500 mls @ 200 mls/hr IV NOW STA Stop: 01/19/25 17:19 Last Admin: 01/19/25 16:34 Dose: 200 mls/hr Documented By: ewa Cefepime HCl (Maxipime 2000mg) 2,000 mg in 20 mls @ 5 mls/min IV NOW STA; Protocol Stop: 01/19/25 14:53 Last Admin: 01/19/25 16:34 Dose: 5 mls/min Documented By: ewa Medical Decision Making Differential Diagnosis DDx includes but not limited to: Cellulitis, necrotizing fasciitis, abscess, erysipelas, venous stasis dermatitis, DVT, gout, lymphedema Medical Records Attestation: I reviewed the patient's medical records. Home Medications Current Medication List: was personally reviewed by me Laboratory Data Attestation: I reviewed the patient's lab results. 01/19/25 14:45 01/19/25 16:19 Lab Results 01/19/25 01/19/25 01/19/25 Range/Units 14:45 15:04 16:19 WBC 17.00 H (4.8-10.8) K/ul RBC 4.40 L (4.70-6.10) M/uL Hgb 12.0 L (14.0-18.0) g/dl Hct 38.6 L (42.0-52.0) % MCV 87.7 (80.0-100.0) fL MCH 27.3 (25.0-34.0) pg MCHC 31.1 L (32.0-36.0) g/dL RDW Std Deviation 56.1 H (36.4-46.3) fL RDW Coeff of [place] 18.4 H (11.5-14.5) % Plt Count 147 (130-400) K/uL MPV 9.3 L (9.4-12.4) fL Immature Gran % (Auto) 0.2 % Neut % (Auto) 35.9 % Lymph % (Auto) 59.6 % [place] % (Auto) 3.8 % Eos % (Auto) 0.2 % Baso % (Auto) 0.3 % Neut # (Auto) 6.09 (1.40-6.50) K/uL Lymph # (Auto) 10.13 H (1.20-3.40) K/uL [place] # (Auto) 0.65 H (0.11-0.59) K/uL Eos # (Auto) 0.04 (0.00-0.50) K/uL Baso # (Auto) 0.05 (0.00-0.20) K/uL Immature Gran # (Auto) 0.04 (0.01-0.20) K/uL Polychromasia 2+ Sodium 138 (136-145) mmol/L Potassium TNP 3.8 Chloride 102 (98-107) mmol/L Carbon Dioxide 24 (21-32) mmol/L Anion Gap 12 H (3-11) BUN 32 H (6-23) mg/dl Creatinine 1.37 (0.6-1.4) mg/dl Est Cr Clr Drug Dosing 37.9 ml/min eGFR 49.62 BUN/Creatinine Ratio 23.4 H (10-20) Glucose 127 H (70-99(Fasting)) mg/dl Lactate 2.5 H* (0.4-2.0) mmol/L Calcium 8.8 (8.6-10.3) mg/dl Magnesium 2.4 (1.7-2.4) mg/dl Total Bilirubin 1.7 H (0.2-1.0) mg/dl Direct Bilirubin TNP 0.4 H AST TNP 16 ALT 11 (7-52) U/L Alkaline Phosphatase 171 H (34-104) U/L Troponin I High Sens 22.2 H 23.1 H (0-20) pg/ml Total Protein 6.6 (6.0-8.3) gm/dl Albumin 3.9 (3.4-5.0) gm/dl Imaging Data Radiologist's Impression: Chest X-Ray 01/19/25 14:50 XR chest 1V portable CLINICAL HISTORY: Sepsis COMPARISON STUDY: 11/15/2024 FINDINGS: Stable cardiomegaly with pulmonary vascular congestion. There is mild stranding of the right lung base with partial obscuration of the right hemidiaphragm. No other consolidation or pleural effusion seen. No pneumothorax. IMPRESSION: Atelectasis versus early pneumonia right lung base. ACT 112: Negative or not required by law. Electronically signed by: Danny Meza M.D. 01/19/2025 3:15 PM Venous Doppler Study 01/19/25 14:51 Clinical History: Redness and swelling Technique: Venous ultrasound evaluation was performed utilizing grayscale, color Doppler and wave form evaluation. Images were also obtained with and without compression Findings: The right common femoral, superficial femoral, popliteal, and visualized calf veins demonstrate normal anechoic lumens with full compressibility. Normal flow is seen on color Doppler images. Expected waveforms were produced with augmentation maneuvers Impression: No evidence of right leg deep venous thrombosis Electronically signed by David Bautista 01-19-2025 5:48 PM Foot X-Ray 01/19/25 15:33 XR foot RT min 3V routine CLINICAL HISTORY: R/o osteo COMPARISON: 11/29/2024 FINDINGS: No acute fracture or dislocation. Stable severe degenerative changes at the first MTP joint and at the second PIP joint with a few periarticular erosions. Findings suggest gout. No other osseous destructive change seen. IMPRESSION: 1. Findings suggesting gout at the first MTP and second PIP joints. 2. Otherwise no osteomyelitis seen. ACT 112: Negative or not required by law. Electronically signed by: Danny Meza M.D. 01/19/2025 4:06 PM MDM Narrative Patient is an 89-year-old male presents with atraumatic right lower extremity swelling and redness. Afebrile nontoxic-appearing here today. Neurovascularly intact examination. No concern for deep tissue infection or necrotizing fasciitis based on examination. Similar presentation in November when he was admitted for cellulitis. Lab work reviewed and notable for leukocytosis of 17,000 and a lactate of 2.5. Blood cultures were sent. Broad-spectrum antibiotics initiated. No evidence of septic shock or indication for IV fluids especially in the setting of his chronic heart failure. DVT ultrasound negative here today. X-ray of the right foot confirms tophaceous gout of the first and second toe. Will admit to hospitalist service. Impression & Plan Cellulitis of leg, right Discharge Plan Visit Data Chief Complaint: Skin Problem Stated Complaint: CELLULITIS ED Provider: Casa Arora Discharge Problem: Cellulitis of leg, right Patient Disposition: Admitted As Inpatient Condition: Good Forms Stand Alone Forms: My [employer] Prescriptions Prescriptions: No Action Jardiance 10 mg tablet 10 mg PO QAM Qty: 90 3RF digoxin 125 mcg (0.125 mg) tablet 125 mcg PO 3XWK Rx Instructions: Sunday//Sunday mecobalamin (vitamin B12) 1,000 mcg tablet,disintegrating 1,000 mcg sublingual DAILY Patient Comments: 01/19- otc unable to verify Rx Instructions: place tablet under tongue and allow to dissolve for at least30 secs before swallowing umeclidinium-vilanterol [Anoro Ellipta] 62.5-25 mcg/actuation blister with device 1 inh inhalation QAM atorvastatin [Lipitor] 40 mg Tablet 40 mg PO HS apixaban 5 mg tablet 5 mg PO BID Qty: 60 0RF lidocaine 5 % adhesive patch,medicated 1 patch TOP DAILY PRN (Reason: pain) Qty: 15 0RF Rx Instructions: leave on most painful area for 12 hrs PreserVision AREDS-2 250-90-40-1 mg Capsule 1 tab PO BID Patient Comments: 01/19- otc unable to verify spironolactone 25 mg tablet 12.5 mg PO QAM Probiotic 15 billion cell capsule, sprinkle 1 cap PO DAILY Qty: 30 0RF Patient Comments: 01/19- otc unable to verify Rx Instructions: do not crush/chew/cut; swallow whole OR may open and sprinkle in cold drink/food metoprolol succinate 50 mg tablet extended release 24 hr 50 mg PO AMHS metoprolol succinate 25 mg tablet extended release 24 hr 25 mg PO QAM Rx Instructions: take in addition to 50mg in the am torsemide 20 mg tablet 20 mg PO UD Rx Instructions: Take 1 tab every other day (4x/week) allopurinol 100 mg tablet 300 mg PO QAM Rx Instructions: dose correction - currently taking 100 mg daily colchicine 0.6 mg capsule 0.6 mg PO DAILY PRN (Reason: Other) Patient Comments: 01/19- last filled 10/24 30 day supply Rx Instructions: taking PRN as needed - see instructions Referrals Referrals: El Calabrese MD [Primary Care Provider] -
[2025-01-19 15:36] LABS: Alanine Aminotransferase 11 U/L (7-52); Albumin Level 3.9 gm/dl (3.4-5.0); Alkaline Phosphatase 171 U/L (34-104); Anion Gap 12 (3-11); Bilirubin,Total 1.7 mg/dl (0.2-1.0); Blood Urea Nitrogen 32 mg/dl (6-23); Calcium 8.8 mg/dl (8.6-10.3); Carbon Dioxide 24 mmol/L (21-32); Chloride 102 mmol/L (98-107); Creatinine Clr Calc Pharmacy 37.9 ml/min; Glucose 127 mg/dl (70-99(Fasting)); Magnesium 2.4 mg/dl (1.7-2.4); Sodium 138 mmol/L (136-145); Total Protein 6.6 gm/dl (6.0-8.3)
[2025-01-19 15:52] LABS: Immature Granulocytes # (auto) 0.04 K/uL (0.01-0.20); Immature Granulocytes % (auto) 0.2 %; Polychromasia 2+
--- NOTE | 2025-01-19 16:08 | XRay Report ---
XR foot RT min 3V routine CLINICAL HISTORY: R/o osteo COMPARISON: 11/29/2024 FINDINGS: No acute fracture or dislocation. Stable severe degenerative changes at the first MTP join t and at the second PIP joint with a few periarticular erosions. Findings suggest gout. No other osse ous destructive change seen. IMPRESSION: 1. Findings suggesting gout at the first MTP and second PIP joints. 2. Otherwise no osteomyelitis seen. ACT 112: Negative or not required by law. Electronically signed by: Danny Meza M.D. 01/19/2025 4:06 PM
[2025-01-19] MEDS: VANCOMYCIN HCL 1,750 MG in SODIUM CHLORIDE 0.9% 500 ML IV STA (16:34)
[2025-01-19] MEDS: CEFEPIME 2000MG 2,000 MG/20 ML SYR IV STA (16:34)
[2025-01-19 17:06] LABS: Potassium 3.8 mmol/L (3.5-5.1)
--- NOTE | 2025-01-19 17:48 | Ultrasound Report ---
Clinical History: Redness and swelling Technique: Venous ultrasound evaluation was performed utilizing grayscale, color Doppler and wave form evaluation. Images were also obtained with and without compression Findings: The right common femoral, superficial femoral, popliteal, and visualized calf veins demonstrate normal anechoic lumens with full compressibility. Normal flow is seen on color Doppler images. Expected waveforms were produced with augmentation maneuvers Impression: No evidence of right leg deep venous thrombosis Electronically signed by David Bautista 01-19-2025 5:48 PM
--- NOTE | 2025-01-19 18:17 | History & Physical Report ---
Date of Service January 19, 2025 Assessment & Plan (1) Cellulitis of right leg: (2) CAD (coronary artery disease): (3) (HFpEF) heart failure with preserved ejection fraction: Plan Patient is an 89 Y O M with h/o gout, osteomyelitis, COPD, CAD, Chronic HFpEF, pulmonary HTN, atrial fibrillation on Eliquis , HTN , HLD who presents for right lower extremity swelling and redness gradually worsening since 4 days. He is being admitted for Cellulitis of Right Lower Extremity. #Cellulitis of Right Lower Extremity -Swelling, erythema, Warm and tender to touch for 4 days. -Denies trauma, injections, or invasive procedures over the affected area -Symptoms and skin changes/findings suggestive of cellulitis. -Venous Doppler with no evidence of DVT -WBC 17k, RR: 29 and Pulse 92 and Body temp of 36 meets all criteria for SIRS. -Lactate : wnl -Will start on Vancomycin and Cefepime for MRSA and Cefepime coverage -Doesn't look dry on exam. Will hold fluid for now. Will add if patient doesn't eat or drink well. -Blood culture pending. Will follow up with results #Chronic Conditions Gout: Continue allopurinol Chronic HFpEF: Continue Metoprolol, Digoxin, Empagliflozin, Spironolactone Afib: Continue Eliquis DVT prophylaxis: Eliquis Code: DNR/DNI admit: med/surg with Tele History of Present Illness Primary Care Provider: El Calabrese MD Patient is an 89 Y O M with h/o gout, osteomyelitis, COPD, CAD, Chronic HFpEF, pulmonary HTN, atrial fibrillation on Eliquis , HTN , HLD who presents for right lower extremity swelling and redness that started on Sunday. Started with swelling around the knee and gradually progressing upto right ankle. . Similar presentation in the past related to cellulitis. Denies any trauma,fevers, chills, body aches, nausea, vomiting, chest pain . He is mild short of breath but reports that this is his baseline as he has Pulmonary Hypertension. No history of DVT. He did not take his Eliquis the past three days due to nose bleeding. Nose bleeding for only one episode .Denies current nose bleeding. He lives with his . He wishes to be DNR/DNI. ER course: Got one dose of Vancomycin and Cefepime Allergies Allergy/AdvReac Type Severity Reaction Status Date / Time TISHA Inhibitors AdvReac Mild COUGH Verified 10/29/24 17:40 Home Medications Medication Instructions Recorded Confirmed Type atorvastatin 40 mg tablet (Lipitor) 40 mg PO HS 06/18/20 01/19/25 History apixaban 5 mg tablet 5 mg PO BID #60 tabs 06/30/20 01/19/25 Rx mecobalamin (vitamin B12) 1,000 1,000 mcg sublingual DAILY 03/20/24 01/19/25 History mcg disintegrating tablet,sublingual digoxin 125 mcg (0.125 mg) tablet 125 mcg PO 3XWK 03/31/24 01/19/25 History umeclidinium 62.5 mcg-vilanterol 1 inh inhalation QAM 08/26/24 01/19/25 History 25 mcg/actuation powdr for inhalation (Anoro Ellipta) spironolactone 25 mg tablet 12.5 mg PO QAM 10/29/24 01/19/25 History vit C 250 mg-vit E 90 mg-zinc 40 1 tab PO BID 10/29/24 01/19/25 History mg-copper 1 [id number] capsule (PreserVision AREDS-2) lactobacillus combo no.11 15 1 cap PO DAILY #30 caps 10/30/24 01/19/25 Rx billion cell sprinkle capsule (Probiotic) lidocaine 5 % topical patch 1 patch topical DAILY PRN pain #15 11/15/24 01/19/25 Rx ea empagliflozin 10 mg tablet 10 mg PO QAM #90 tabs 11/18/24 01/19/25 Rx (Jardiance) metoprolol succinate 25 mg 25 mg PO QAM 11/29/24 01/19/25 History tablet,extended release 24 hr metoprolol succinate 50 mg 50 mg PO AMHS 11/29/24 01/19/25 History tablet,extended release 24 hr allopurinol 100 mg tablet 300 mg PO QAM 01/19/25 01/19/25 History colchicine 0.6 mg capsule 0.6 mg PO DAILY PRN Other 01/19/25 01/19/25 History torsemide 20 mg tablet 20 mg PO UD 01/19/25 01/19/25 History Past Med/Surg History Problem List (Updated 01/19/25 @ 18:09 by Casa Arora MD) Cellulitis of leg, right (Acute) Acute gout Cellulitis of right leg Toe pain, right (Acute) Infected abrasion of second toe of right foot (Acute) Osteomyelitis (Acute) Chronic tophaceous gout of right foot Toe infection Complex sleep apnea syndrome Emphysema lung Witnessed episode of apnea Nocturnal hypoxemia CAD (coronary artery disease) (HFpEF) heart failure with preserved ejection fraction SOBOE (shortness of breath on exertion) Right ventricular dysfunction Pulmonary HTN Atrial flutter with rapid ventricular response Acute heart failure with preserved ejection fraction Acute HF (heart failure) Atrial fibrillation with RVR (Acute) Encounter for pre-operative examination Encounter for pre-operative examination White blood cell abnormality Atrial fibrillation Community acquired pneumonia Encounter for pre-operative examination 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 Weaver On anticoagulant therapy eliquis bid Food impaction of esophagus History of pneumonia AROUND TIME OF AFIB, ? SPRING 2020 "SHOULD BE IN MY RECORDS" Moderate aortic stenosis Bicuspid aortic valve Chronic ischemic heart disease Paroxysmal atrial fibrillation with rapid ventricular response Atrial fibrillation with rapid ventricular response ? SPRING 2020 "SHOULD BE IN MY RECORDS" NO HX CARDIOVERSION, POSSIBLE CAUSE PNEUMONIA PER PT Osteoarthritis Prostate cancer 5 yrs ago > radiation Myocardial Infarction 1993 > RCA > Atenolol and Lipitor for this Dyslipidemia Surgical History History of left cataract extraction (~03/28/21) History of esophagogastroduodenoscopy (EGD) last 06/14/21 @ [facility] for food bolus History of right cataract extraction History of cardiac cath X3 TOTAL 1993 NO STENT(S) , 1998 CATH DID NOT CONSENT FOR STENT...SECOND CATH IN 1998 STENT X1 History of colonoscopy History of tooth extraction History of total knee replacement left H/O heart artery stent 1998 > x1 > follows with Dr. Weaver Family History Brother Colon cancer Other No family history of adverse response to anesthesia Social History Smoking Status: Former smoker Tobacco Type: Cigarettes Cigarettes Per Day: 2 PPD / Quit 50 years ago; Second Hand Exposure: No; Do You Dip or Chew Tobacco: No; Hx Alcohol Use: Yes Alcohol type: hard liquor Hx Substance Use: No Preferred Language: Jordanian Communication Ability: Effective Dental Service Chief Required: No Beliefs That Will Affect Care: None Current Living Situation: Spouse Current Living Situation Comment: Lives w/ spouse Feels Safe at Home: Yes Assistive Devices: CPAP and Oxygen - at Night Review of Systems Review of Systems: As per HPI Physical Exam Physical Exam: Constitutional: Well appearing, No acute distress, PILCCOD: Negative HEENT: Atraumatic, Normocephalic, No conjunctival injection CVS: S1 S2 with systolic murmur + Respiratory: BL equal air entry with NVBS. No rhonchi, wheezes, or crackles. No increased work of breathing GI: Soft, Slightly distended, Nontender, Normal Bowel sounds + MSK: Right lower extremity: Erythema and swelling extending from right knee upto right ankle, warm and tender on touch; Normal left lower extremity Neuro: Alert, Oriented to TPP, No Focal deficit Psych: Mood and Affect congruent, Cooperative on exam Results & Data Results & Data Vital Signs (Past 12 Hours) Vital Signs Temp Pulse Pulse Resp BP BP Pulse Ox 01/19/25 16:45 81 22 01/19/25 16:45 104/66 01/19/25 16:45 104/66 01/19/25 16:45 104/66 01/19/25 16:45 104/66 01/19/25 16:45 104/66 01/19/25 16:42 89 20 01/19/25 16:30 116/73 01/19/25 16:30 116/73 01/19/25 16:30 116/73 01/19/25 16:30 116/73 01/19/25 16:30 116/73 01/19/25 16:30 85 31 H 01/19/25 16:24 94 H 28 H 01/19/25 16:15 90/69 L 01/19/25 16:15 90/69 L 01/19/25 16:15 90/69 L 01/19/25 16:15 90/69 L 01/19/25 16:15 90/69 L 01/19/25 16:15 95 01/19/25 16:12 92 01/19/25 16:00 88 22 96 01/19/25 16:00 102/01/19/25 16:00 102/01/19/25 16:00 /01/19/25 16:00 102/01/19/25 16:00 102/01/19/25 15:51 92 H 19 93 01/19/25 15:45 92/63 L 01/19/25 15:45 92/63 L 01/19/25 15:45 92/63 L 01/19/25 15:45 92/63 L 01/19/25 15:45 92/63 L 01/19/25 15:45 92/63 L 01/19/25 15:45 89 30 H 91 01/19/25 15:42 85 22 90 01/19/25 15:30 92/69 L 01/19/25 15:30 92/69 L 01/19/25 15:30 92/69 L 01/19/25 15:30 92/69 L 01/19/25 15:30 92/69 L 01/19/25 15:30 92/69 L 01/19/25 15:30 92/69 L 01/19/25 15:30 92/69 L 01/19/25 15:30 88 21 95 01/19/25 15:21 94 H 27 H 94 01/19/25 15:15 90 18 94 01/19/25 15:15 94/72 L 01/19/25 15:15 94/72 L 01/19/25 15:15 94/72 L 01/19/25 15:15 94/72 L 01/19/25 15:15 94/72 L 01/19/25 15:12 88 17 92 01/19/25 15:09 100/71 01/19/25 15:09 100/71 01/19/25 15:09 100/71 01/19/25 15:09 100/71 01/19/25 15:09 100/71 01/19/25 15:09 100/71 01/19/25 15:09 94 H 15 94 01/19/25 15:00 93 H 24 96 01/19/25 14:51 99 H 16 95 01/19/25 14:50 93 H 18 100/71 97 01/19/25 14:50 93 H 18 90 01/19/25 14:42 96 H 17 01/19/25 14:39 103 H 13 01/19/25 14:23 36 C L 99 H 18 98/62 L 94 01/19/25 14:21 96 H 18 100/71 94 O2 Del Method 01/19/25 16:45 01/19/25 16:45 01/19/25 16:45 01/19/25 16:45 01/19/25 16:45 01/19/25 16:45 01/19/25 16:42 01/19/25 16:30 01/19/25 16:30 01/19/25 16:30 01/19/25 16:30 01/19/25 16:30 01/19/25 16:30 01/19/25 16:24 01/19/25 16:15 01/19/25 16:15 01/19/25 16:15 01/19/25 16:15 01/19/25 16:15 01/19/25 16:15 01/19/25 16:12 01/19/25 16:00 01/19/25 16:00 01/19/25 16:00 01/19/25 16:00 01/19/25 16:00 01/19/25 16:00 01/19/25 15:51 01/19/25 15:45 01/19/25 15:45 01/19/25 15:45 01/19/25 15:45 01/19/25 15:45 01/19/25 15:45 01/19/25 15:45 01/19/25 15:42 01/19/25 15:30 01/19/25 15:30 01/19/25 15:30 01/19/25 15:30 01/19/25 15:30 01/19/25 15:30 01/19/25 15:30 01/19/25 15:30 01/19/25 15:30 01/19/25 15:21 01/19/25 15:15 01/19/25 15:15 01/19/25 15:15 01/19/25 15:15 01/19/25 15:15 01/19/25 15:15 01/19/25 15:12 01/19/25 15:09 01/19/25 15:09 01/19/25 15:09 01/19/25 15:09 01/19/25 15:09 01/19/25 15:09 01/19/25 15:09 01/19/25 15:00 01/19/25 14:51 01/19/25 14:50 Room Air 01/19/25 14:50 Room Air 01/19/25 14:42 01/19/25 14:39 01/19/25 14:23 Room Air 01/19/25 14:21 Room Air Supervising Physician Co-Signing Physician Notes ATTESTATION I also saw the patient and confirmed ruiz portions of the history and exam. I agree with the impression and plan in the resident documentation, and as summarized below. Patient without complaint other than the erythema on the RLE. Really does not have much pain or tenderness. Had a similar episode a couple of months ago in the setting of an acute gout flare, but per the patient, does not have the pain and erythema in the toes which he had last time. Denies fever or chills. No dizziness. No lightheadedness. EXAM Hemodynamically stable Alert and oriented. NAD. CV I/I, rate controlled, 2/6 MARIAELENA LUSB, holosystolic murmur RLSB Lungs essentially clear, some scratchiness in the bases Right LE with warmth, erythema. No open wounds. Mild tenderness. Knee and ankle FROM without erythema. DATA Labs WBC 17 HgB 12 BUN 32, Cr 1.37 AP 171 Lactate 2.5, repeat 1.6 Imaging CXR atelectasis vs early pneumonia, right base (I favor the former based on exam) Doppler negative for DVT Foot X-ray c/w gout (known history) Micro Blood cultures pending IMPRESSION & PLAN RLE cellulitis HFpEF, stable CAD, stable Permanent AF, on systemic AC Severe pulmonary HTN Moderate He looks euvolemic; hemodynamically stable. Hold on additional fluids at this time. His WBC is hard to interpret with his history of CLL Continue antibiotics Await cultures and follow clinically Per discussion at bedside along with the resident, patient wishes to be a full code. We can re-visit in AM for further clarification. Additional per resident documentation Resident Activity Tracking Resident Involvement: Resident Care Provided Care Provided: Adult Hospital Medicine (2) CAD (coronary artery disease) Associated angina: without angina Coronary Disease-Associated Artery/Lesion type: [place] artery [place] vs. transplanted heart: [place] heart Qualified Code(s): I25.10 - Atherosclerotic heart disease of [place] coronary artery without angina pectoris (3) (HFpEF) heart failure with preserved ejection fraction Heart failure chronicity: chronic Qualified Code(s): I50.32 - Chronic diastolic (congestive) heart failure
[2025-01-19] MEDS ORDERED: LIDOCAINE 5% 1 PATCH TD PRN (23:16)
[2025-01-19] MEDS ORDERED: ONDANSETRON INJ 2 MG/ML 2 ML VIAL IV PRN (23:16)
[2025-01-19] MEDS ORDERED: ACETAMINOPHEN 325 MG TAB PO PRN (23:16)
[2025-01-19] MEDS ORDERED: ALUMINUM/MAGNESIUM SUSP 30 ML UDC PO PRN (23:16)
[2025-01-19] MEDS ORDERED: POLYETHYLENE (MIRALAX) 17 GM PACK PO PRN (23:16)
[2025-01-19] MEDS ORDERED: COLCHICINE 0.6 MG TAB PO PRN (23:44)
[2025-01-19] MEDS: APIXABAN 5 MG TABLET PO SCH (23:46)
[2025-01-19] MEDS: ATORVASTATIN 40 MG TAB PO SCH (23:46)
[2025-01-19] MEDS: METOPROLOL SUCC 50MG EXT REL TAB PO SCH (23:46)
[2025-01-19] MEDS: REMOVE LIDODERM PATCH SCH (23:47)
[2025-01-20] MEDS: CEFEPIME 2000MG 2,000 MG/20 ML SYR IV SCH (06:01)
[2025-01-20 06:19] LABS: Hematocrit (blood only) 32.5 % (42.0-52.0); Hemoglobin 10.2 g/dl (14.0-18.0); Mean Corpuscular Hemoglobin 27.1 pg (25.0-34.0); Mean Corpuscular Volume 86.4 fL (80.0-100.0); Platelet Count 138 K/uL (130-400); RDW Standard Deviation 55.5 fL (36.4-46.3); Red Blood Count 3.76 M/uL (4.70-6.10); White Blood Count 14.16 K/ul (4.8-10.8)
[2025-01-20 06:34] LABS: Anion Gap 9.0 (3-11); Blood Urea Nitrogen 34.0 mg/dl (6-23); Calcium 8.6 mg/dl (8.6-10.3); Carbon Dioxide 23.0 mmol/L (21-32); Chloride 104.0 mmol/L (98-107); Creatinine Clr Calc Pharmacy 41.6 ml/min; Glucose 102.0 mg/dl (70-99(Fasting)); Potassium 3.9 mmol/L (3.5-5.1); Sodium 136.0 mmol/L (136-145)
[2025-01-20 07:14] LABS: Immature Granulocytes # (auto) 0.06 K/uL (0.01-0.20); Immature Granulocytes % (auto) 0.4 %; Polychromasia 1+
[2025-01-20] MEDS: ADVANCED PROBIOTIC 625 MG CAPSULE PO SCH (08:12)
[2025-01-20] MEDS: METOPROLOL SUCC 25MG EXT REL TAB PO SCH (08:12)
[2025-01-20] MEDS: EMPAGLIFLOZIN 10 MG TAB PO SCH (08:13)
[2025-01-20] MEDS: SPIRONOLACTONE 12.5 MG TAB PO SCH (08:13)
[2025-01-20] MEDS: CYANOCOBALAMIN (B-12) 500 MCG TABLET PO SCH (08:13)
[2025-01-20] MEDS: UMECLIDINIUM/VILANTEROL 62.5/25MCG 7 PUFFS/INHALER INH SCH (08:14)
[2025-01-20] MEDS ORDERED: VANCOMYCIN CONSULT ACTIVE PRN (09:03)
[2025-01-20] MEDS ORDERED: VANCOMYCIN HCL 1,250 MG in SODIUM CHLORIDE 0.9% 250 ML IV SCH (09:15)
--- NOTE | 2025-01-20 09:56 | Pharmacy Report ---
Pharmacy PK ABX Note - Date of Service January 20, 2025 - Assessment and Plan Assessment 89 year old M receiving vancomycin and cefepime for cellulitis of RLE. Presenting with swelling over last several days. Hx per notes of osteo. Foot xray not suggestive of osteo. Venous doppler negative for DVT. Blood cultures pending. Plan Vancomycin * Loading dose: 1750 mg IV x 1 * Maintenance dose: 1000 mg IV every 24 hours * Regimen is predicted to achieve target AUC/KIM of 400-600 mg/L.hr * Plan to obtain vancomycin level if continued >48 hours Pharmacy will continue to follow and will adjust dose/frequency as necessary. Thank you. Pharmacy has transitioned to AUC monitoring for vancomycin. AUC/KIM is the preferred PK/PD target and is associated with decreased risk of nephrotoxicity compared to traditional trough targets.
[2025-01-20] MEDS: VANCOMYCIN HCL 1,000 MG in SODIUM CHLORIDE 0.9% 250 ML IV SCH (10:15)
[2025-01-20] MEDS ORDERED: VANCOMYCIN HCL 1,000 MG in SODIUM CHLORIDE 0.9% 250 ML IV SCH (12:00)
--- NOTE | 2025-01-20 14:15 | Hospitalist Progress Note ---
Date of Service January 20, 2025 Assessment & Plan (1) Cellulitis of right leg: (2) CAD (coronary artery disease): (3) (HFpEF) heart failure with preserved ejection fraction: Plan Patient is an 89 Y O M with h/o gout, osteomyelitis, COPD, CAD, Chronic HFpEF, pulmonary HTN, atrial fibrillation on Eliquis , HTN , HLD who presents for right lower extremity swelling and redness gradually worsening since 4 days. He is being admitted for Cellulitis of Right Lower Extremity. #Cellulitis of Right Lower Extremity - Swelling, erythema, Warm and tender to touch for 4 days. There is some improvement of the erythema today, however notable soft tissue swelling. Without tenderness to palpation. Ambulating well without concern. - Denies trauma, injections, or invasive procedures over the affected area - venous doppler completed in ED without evidence of DVT. CXR completed during ED workup showing atelectasis vs early pneumonia at the right lung base. Not having respiratory symptoms and denies chest pain. Abx coverage as mentioned below. repeat CXR in AM. - WBC 14.1, lactate wnl. Patient remains hemodynamically stable - blood cultures pending - MRSA nares negative. Was started on vancomycin, however was discontinued. No history of MRSA and swab negative. - continue abx with cefepime 2,000 mg IV q12h - CBC & BMP qAM #Chronic Conditions Gout: Continue allopurinol Chronic HFpEF: Continue Metoprolol, Digoxin, Empagliflozin, Spironolactone Afib: Continue Eliquis DVT prophylaxis: Eliquis Code: DNR/DNI admit: med/surg with Tele Admission and Anticipated Discharge Date Admission Date: January 19, 2025 Supervising Physician Co-Signing Physician Notes ATTESTATION I also saw the patient and confirmed ruiz portions of the history and exam. I agree with the impression and plan in the resident documentation, and as corrected/summarized below. Patient without complaint. He is sleeping but easily awakens to voice. EXAM Hemodynamically stable Alert and oriented. NAD. CV I/I, rate controlled, 2/6 MARIAELENA LUSB, holosystolic murmur RLSB Respirations nonlabored Right LE with warmth, erythema - erythema much less intense/less red compared to my exam yesterday. DATA Labs WBC 14.16 HgB 10.2 BUN 34, Cr 1.24 Micro Blood cultures collected upon admission are pending IMPRESSION & PLAN RLE cellulitis, improved today HFpEF, stable CAD, stable Permanent AF, on systemic AC Severe pulmonary HTN Moderate Some improvement in his right lower extremity cellulitis MRSA swab negative and no risk factors, so we will discontinue vancomycin Continue cefepime and await blood cultures If preliminary cultures are negative and continues to show improvement tomorrow, consider transition to p.o. antibiotics Additional per resident documentation Subjective patient seen and examined at bedside this morning. no overnight concerns. alert, awake and without acute distress. no acute concerns. reports minimal pain in his lower extremity. having some swelling, however erythema has improved. No tenderness to palpation. Sensation and strength intact. Denies numbness, tingling, weakness in lower extremity. Denies abdominal pain, N/V/D. Review of Systems Review of Systems: As per HPI Physical Exam Constitutional: WD/WN, vitals as above Respiratory: normal respiratory effort, lungs clear to auscultation Cardiovascular: RRR, no murmur, no edema Gastrointestinal (Abdomen): normal bowel sounds, soft, nontender, no hepatosplenomegaly Skin: soft tissue swelling of right lower extremity up to mid-benítez. I did not examine patient yesterday, unable to compare erythema to admission exam, however erythema still present but appears to be improving. Neurologic: no focal neurologic deficit Psychiatric: A+Ox3, euthymic affect Results & Data Results & Data Vital Signs (Past 12 Hours) Vital Signs Temp Pulse Pulse Resp BP BP Pulse Ox 01/20/25 11:11 36.3 C L 84 16 96/66 L 96 01/20/25 08:15 113/68 01/20/25 08:00 36.3 C L 85 18 94/62 L 96/66 L 96 01/20/25 07:29 87 O2 Del Method O2 Flow Rate 01/20/25 11:11 Nasal Cannula 2 01/20/25 08:15 01/20/25 08:00 Nasal Cannula 2 01/20/25 07:29 Resident Activity Tracking Resident Involvement: Resident Care Provided Care Provided: Adult Hospital Medicine (2) CAD (coronary artery disease) Associated angina: without angina Coronary Disease-Associated Artery/Lesion type: [place] artery [place] vs. transplanted heart: [place] heart Qualified Code(s): I25.10 - Atherosclerotic heart disease of [place] coronary artery without angina pectoris (3) (HFpEF) heart failure with preserved ejection fraction Heart failure chronicity: chronic Qualified Code(s): I50.32 - Chronic diastolic (congestive) heart failure
[2025-01-20] MEDS: DIGOXIN 0.125 MG TAB PO SCH (16:51)
[2025-01-20] MEDS: SODIUM CHLORIDE 0.9% 500 ML IV ONE (21:39)
[2025-01-21 07:28] LABS: Hematocrit (blood only) 32.0 % (42.0-52.0); Hemoglobin 10.1 g/dL (14.0-18.0); Mean Corpuscular Hemoglobin 27.5 pg (25.0-34.0); Mean Corpuscular Volume 87.2 fL (80.0-100.0); Platelet Count 135 K/uL (130-400); RDW Standard Deviation 55.0 fL (36.4-46.3); Red Blood Count 3.67 M/uL (4.70-6.10); White Blood Count 13.16 K/ul (4.8-10.8)
[2025-01-21 07:48] LABS: Anion Gap 8.0 (3-11); Blood Urea Nitrogen 33.0 mg/dl (6-23); Calcium 8.4 mg/dl (8.6-10.3); Carbon Dioxide 22.0 mmol/L (21-32); Chloride 106.0 mmol/L (98-107); Creatinine Clr Calc Pharmacy 40.1 ml/min; Glucose 104.0 mg/dl (70-99(Fasting)); Potassium 4.3 mmol/L (3.5-5.1); Sodium 136.0 mmol/L (136-145)
--- NOTE | 2025-01-21 07:56 | XRay Report ---
EXAM: XR chest 1V portable CLINICAL HISTORY: atelectasis vs pneumonia on admission cxr TECHNIQUE: An X-ray image of the chest was obtained in AP projection. COMPARISON: Prior X-ray dated 01/19/[address] chest dated 11/15/2024 were reviewed for comparison. FINDINGS: EKG leads are superimposed on the chest. There is suboptimal inspiratory effort. Pulmonary Parenchyma: There is a redemonstration of diffuse bilateral reticular prominence, with an interval increase in haziness seen on both sides, possibly in keeping with a diffuse inflammatory disease process or interstitial pulmonary edema, suggesting interval worsening. There is no evidence of pleural effusion or pleural thickening (stable). Heart and Mediastinum: There is marked cardiomegaly. Both hilae appear prominent, possibly due to vascular congestion. Bony Thorax: The visualized bony thorax appears intact, without definite evidence of fractures. Degenerative changes are identified in the visualized spine and both glenohumeral joints. Soft Tissues: The soft tissues overlying the chest wall appear unremarkable. IMPRESSION: There is a redemonstration of diffuse bilateral reticular prominence, with interval increase in haziness seen on both sides, possibly in keeping with a diffuse inflammatory disease process or interstitial pulmonary edema, suggesting interval worsening. Marked cardiomegaly, unchanged. Electronically signed by Ousmane England 01-21-2025 07:56 AM
[2025-01-21 08:27] LABS: Immature Granulocytes # (auto) 0.04 K/uL (0.01-0.20); Immature Granulocytes % (auto) 0.3 %; Smudge Cells Present
[2025-01-21] MEDS: TORSEMIDE 20 MG TAB PO SCH (08:44)
--- NOTE | 2025-01-21 11:39 | Hospitalist Progress Note ---
Date of Service January 21, 2025 Assessment & Plan (1) Cellulitis of right leg: (2) CAD (coronary artery disease): (3) (HFpEF) heart failure with preserved ejection fraction: Plan Patient is an 89 Y O M with h/o gout, osteomyelitis, COPD, CAD, Chronic HFpEF, pulmonary HTN, atrial fibrillation on Eliquis , HTN , HLD who presents for right lower extremity swelling and redness gradually worsening since 4 days. He is being admitted for Cellulitis of Right Lower Extremity. #Cellulitis of Right Lower Extremity - Swelling, erythema, warm and tender to touch for 4 days, prior to presenting to the ED. Denies any trauma, injections, or recent invasive procedures over the affect area. Today, there is some improvement of the warmth and erythema, no longer tender to palpation. There still is a decent amount of soft tissue swelling, R>L, which is not his baseline for him. Continues ambulating without concern. - venous doppler completed in ED without evidence of DVT. - WBC 13.16, lactate wnl on admission. Patient remains hemodynamically stable a nd afebrile - blood cultures prelim results showing no growth after 24 hours - MRSA nares negative. vanco stopped. - d/c IV cefepime and transition to oral abx - keflex 500mg q6h - CBC & BMP qAM #chronic HFpEF/pulmonary hypertension/emphysema - CXR completed during ED workup showing atelectasis vs early pneumonia at the right lung base. Not having respiratory symptoms and denies chest pain. Repeat CXR this morning showing diffuse bilateral reticular prominence with interval increase in haziness bilaterally, possibly due to diffuse inflammatory disease vs interstital pulmonary edema - patient remains hemodynamically stable ; some soft BPs overnight (90s/60s) which is likely patient's baseline - using 2L NC, sating 93%, has CPAP at home - on exam, lungs with diminished airflow throughout the bases bilaterally, otherwise CTA - follows with cardiology regularly and recent echo was May 2024 with normal LV function, EF 65%, right ventricle moderately/severely dilated with moderate decrease in RV systolic function; RV systolc pressure 90 mmHg consistent with severe pulmonary HTN - given presentation, will hold further intervention at this time, as patient is stable and euvolemic on exam, not concerning for worsening CHF or pulmonary process - continue metoprolol, digoxin, empagliflozin, spironolactone - continue telemetry - EKG prn chest pain Afib: - continue cardiac monitoring without actionable events; patient NSR HR 80s - continue Eliquis DVT prophylaxis: Dave admit: anticipate home discharge tomorrow Admission and Anticipated Discharge Date Admission Date: January 19, 2025 Supervising Physician Co-Signing Physician Notes ATTESTATION I also saw the patient and confirmed ruiz portions of the history and exam. I agree with the impression and plan in the resident documentation, and as corrected/summarized below. Really no complaint today. He feels some subjective improvement. Was giving fluid bolus overnight for low systolic. I suspect this is normal for him given his low end blood pressures during the day. EXAM Hemodynamically stable Alert and oriented. NAD. CV I/I, rate controlled, 2/6 MARIAELENA LUSB, holosystolic murmur RLSB Respirations nonlabored Right LE, upon my exam, no warmth, pale erythema, pitting edema which also seems less than yesterday. DATA Labs WBC 13.16 HgB 10.1 BUN 33, Cr 1.30 Micro Blood cultures no growth at 24 hours IMPRESSION & PLAN RLE cellulitis, improved today HFpEF, stable CAD, stable Permanent AF, on systemic AC Severe pulmonary HTN Moderate Continued improvement in his right lower extremity cellulitis Change to Keflex 500 mg QID Tolerate low systolic readings at night, this is not pathological. Will decrease Toprol to 50 BID If continued improvement, may be able to d/c tomorrow Additional per resident documentation Subjective patient seen and examined at bedside this morning. no overnight concerns. alert, awake and without acute distress. no acute concerns. had episode of hypotension overnight with pressures in 90s/60s, was given bolus with improvement. reporting minimal pain in his lower extremity. still having some swelling in the right lower extremity, however erythema and warmth has improved since initial presentation. No tenderness to palpation. Sensation and strength intact. Denies numbness, tingling, weakness in lower extremity. Denies abdominal pain, N/V/D. Review of Systems Review of Systems: as per hpi Physical Exam Constitutional: WD/WN, vitals as above Respiratory: normal respiratory effort, lungs clear to auscultation Cardiovascular: RRR, no murmur, no edema Gastrointestinal (Abdomen): normal bowel sounds, soft, nontender, no hepatosplenomegaly Psychiatric: A+Ox3, euthymic affect Results & Data Results & Data Vital Signs (Past 12 Hours) Vital Signs Temp Pulse Pulse Resp BP Pulse Ox O2 Del Method 01/21/25 09:12 Room Air, Nasal Cannula 01/21/25 07:44 36.4 C L 68 18 102/65 93 Nasal Cannula 01/21/25 07:12 91 H 01/21/25 03:28 36.3 C L 91 H 20 106/71 92 Nasal Cannula O2 Flow Rate 01/21/25 09:12 2 01/21/25 07:44 2 01/21/25 07:12 01/21/25 03:28 2 (2) CAD (coronary artery disease) Associated angina: without angina Coronary Disease-Associated Artery/Lesion type: [place] artery [place] vs. transplanted heart: [place] heart Qualified Code(s): I25.10 - Atherosclerotic heart disease of [place] coronary artery without angina pectoris (3) (HFpEF) heart failure with preserved ejection fraction Heart failure chronicity: chronic Qualified Code(s): I50.32 - Chronic diastolic (congestive) heart failure
[2025-01-22 08:04] LABS: Hematocrit (blood only) 32.7 % (42.0-52.0); Hemoglobin 10.2 g/dL (14.0-18.0); Mean Corpuscular Hemoglobin 26.9 pg (25.0-34.0); Mean Corpuscular Volume 86.3 fL (80.0-100.0); Platelet Count 137 K/uL (130-400); RDW Standard Deviation 55.2 fL (36.4-46.3); Red Blood Count 3.79 M/uL (4.70-6.10); White Blood Count 12.01 K/ul (4.8-10.8)
[2025-01-22 08:11] VITALS: RESP 16; TEMP 97.3
[2025-01-22 08:29] LABS: Anion Gap 9.0 (3-11); Blood Urea Nitrogen 35.0 mg/dl (6-23); Calcium 8.4 mg/dl (8.6-10.3); Carbon Dioxide 22.0 mmol/L (21-32); Chloride 106.0 mmol/L (98-107); Creatinine Clr Calc Pharmacy 35.8 ml/min; Glucose 111.0 mg/dl (70-99(Fasting)); Potassium 4.0 mmol/L (3.5-5.1); Sodium 137.0 mmol/L (136-145)
[2025-01-22 09:26] LABS: Immature Granulocytes # (auto) 0.04 K/uL (0.01-0.20); Immature Granulocytes % (auto) 0.3 %; Ovalocytes 1+; Polychromasia 1+; Smudge Cells Present; Tear Drop Cells 1+
[2025-01-22 11:54] VITALS: BP 101/68; PULSE 83; O2SAT 91
--- NOTE | 2025-01-22 12:50 | Discharge Summary ---
Date of Service January 22, 2025 Admission HPI Per Admitting Provider Patient is an 89 Y O M with h/o gout, osteomyelitis, COPD, CAD, Chronic HFpEF, pulmonary HTN, atrial fibrillation on Eliquis , HTN , HLD who presents for right lower extremity swelling and redness that started on Sunday. Started with swelling around the knee and gradually progressing upto right ankle. . Similar presentation in the past related to cellulitis. Denies any trauma,fevers, chills, body aches, nausea, vomiting, chest pain . He is mild short of breath but reports that this is his baseline as he has Pulmonary Hypertension. No history of DVT. He did not take his Eliquis the past three days due to nose bleeding. Nose bleeding for only one episode .Denies current nose bleeding. He lives with his . He wishes to be DNR/DNI. ER course: Got one dose of Vancomycin and Cefepime Admission Exam Per Admitting Provider Constitutional: Well appearing, No acute distress, PILCCOD: Negative HEENT: Atraumatic, Normocephalic, No conjunctival injection CVS: S1 S2 with systolic murmur + Respiratory: BL equal air entry with NVBS. No rhonchi, wheezes, or crackles. No increased work of breathing GI: Soft, Slightly distended, Nontender, Normal Bowel sounds + MSK: Right lower extremity: Erythema and swelling extending from right knee upto right ankle, warm and tender on touch; Normal left lower extremity Neuro: Alert, Oriented to TPP, No Focal deficit Psych: Mood and Affect congruent, Cooperative on exam Principal Diagnosis right leg cellulitis Discharge Exam Constitutional WD/WN, vitals as above Respiratory normal respiratory effort, lungs clear to auscultation Cardiovascular RRR, no murmur, no edema Gastrointestinal (Abdomen) normal bowel sounds, soft, nontender, no hepatosplenomegaly Musculoskeletal marked improved of right lower extremity erythema from admission; there is improvement of swelling. not tender to palpation. LE neurovascularly intact BL. Psychiatric A+Ox3, euthymic affect Discharge Data Allergies Allergy/AdvReac Type Severity Reaction Status Date / Time TISHA Inhibitors AdvReac Mild COUGH Verified 10/29/24 17:40 Consultations 01/19/25 19:59 ED Decision to Admit Stat Ordered Studies 01/19/25 14:51 US venous duplex leg [US venous doppler LE RT] Stat Hospital Course (1) Cellulitis of right leg: (2) CAD (coronary artery disease): (3) (HFpEF) heart failure with preserved ejection fraction: Plan Patient is an 89 Y O M with h/o gout, osteomyelitis, COPD, CAD, Chronic HFpEF, pulmonary HTN, atrial fibrillation on Eliquis , HTN , HLD who presents for right lower extremity swelling and redness gradually worsening since 4 days. He is being admitted for Cellulitis of Right Lower Extremity. #Cellulitis of Right Lower Extremity - Swelling, erythema, warm and tender to touch for 4 days, prior to presenting to the ED. Denies any trauma, injections, or recent invasive procedures over the affect area. Today, there continues to be improvement of the warmth and erythema, no longer tender to palpation. There still is a decent amount of soft tissue swelling, R>L, which is not his baseline for him. Continues ambulating without concern. Venous doppler completed in ED without evidence of DVT. WBC 13.16, lactate wnl on admission. Patient remains hemodynamically stable and afebrile - blood cultures results showing no growth after 24 hours - MRSA nares negative. vanco stopped. - d/c IV cefepime and transition to oral abx - keflex 500mg q6h. On discharge, cefadroxil 500mg po bid for 7 days (total treatment course of 10 days) #chronic HFpEF/pulmonary hypertension/emphysema - CXR completed during ED workup showing atelectasis vs early pneumonia at the right lung base. Not having respiratory symptoms and denies chest pain. Repeat CXR this morning showing diffuse bilateral reticular prominence with interval increase in haziness bilaterally, possibly due to diffuse inflammatory disease vs interstitial pulmonary edema - patient remains hemodynamically stable ; some soft BPs overnight (90s/60s) which is likely patient's baseline - using 2L NC, sating 95%, has CPAP at home - Lungs CTA BL, however some decreased airflow throughout the bases, likely due to patient's chronic pulmonary disease. - follows with cardiology regularly and recent echo was May 2024 with normal LV function, EF 65%, right ventricle moderately/severely dilated with moderate decrease in RV systolic function; RV systolc pressure 90 mmHg consistent with severe pulmonary HTN. - given presentation, will hold further intervention at this time, as patient is stable and euvolemic on exam, not concerning for worsening CHF or pulmonary process. Telemetry monitoring during admission w/o actionable events, NSR HR 80s. - continue home medications as prescribed: metoprolol, digoxin, empagliflozin, spironolactone, and torsemide - encouraged to follow with cardiology and pulmonology after discharge Afib: - continue cardiac monitoring without actionable events; patient NSR HR 80s - continue Eliquis DVT prophylaxis: Eliquis admit: home discharge today Total Time Total Time Spent Total Time Spent (In Minutes): Nura Schilling DO, attending physician, spent 25 minutes myself seeing the patient, reviewing the chart, and documenting today. Discharge Plan Discharge Items Patient Disposition: Home - Self-Care Reason For Visit: RLE CELLULITIS Discharge Diagnosis: right lower extremity cellulitis Condition on Discharge: Good Activity: Resume your previous activity Non-emergency contact: Primary Care Provider Call non-emergency contact if: you have any medication questions, your symptoms worsen, your pain is worsening and you have a fever Follow-up/Referrals: El Calabrese MD [Primary Care Provider] - Diet: Heart Healthy Addtl Attending Provider Instructions: You were admitted to [facility] for treatment of a right leg infection. You were treated with a brief course of IV antibiotics and were transitioned to oral antibiotics. Your blood work on admission showed an elevated white blood cell count. Imaging of your chest was concerning for pneumonia vs fluid overload, however you remained stable during admission and intervention was not needed. Please continue your antibiotics for an additional 7 days, last dose on . This medication has been sent to your pharmacy. Medications: NEW: Cefadroxil 500mg by mouth 2 times daily for 7 days Continue your other home medications as prescribed. Follow-up with your PCP within 1 week of discharge. Please also follow-up with your hotel guest service agent. Return to care if your symptoms worsen, have a high fever, worsening shortness of breath, and new or severe chest pain. Pending Studies at Discharge: No Stand-Alone Forms: My [facility], Smoking Cessation Medications and DC Order Prescriptions: New cefadroxil 500 mg capsule 500 mg PO BID Qty: 7 0RF Continued Jardiance 10 mg tablet 10 mg PO QAM Qty: 90 3RF digoxin 125 mcg (0.125 mg) tablet 125 mcg PO 3XWK Rx Instructions: Sunday//Sunday mecobalamin (vitamin B12) 1,000 mcg tablet,disintegrating 1,000 mcg sublingual DAILY Patient Comments: 01/19- otc unable to verify Rx Instructions: place tablet under tongue and allow to dissolve for at least30 secs before swallowing umeclidinium-vilanterol [Anoro Ellipta] 62.5-25 mcg/actuation blister with device 1 inh inhalation QAM atorvastatin [Lipitor] 40 mg Tablet 40 mg PO HS apixaban 5 mg tablet 5 mg PO BID Qty: 60 0RF lidocaine 5 % adhesive patch,medicated 1 patch TOP DAILY PRN (Reason: pain) Qty: 15 0RF Rx Instructions: leave on most painful area for 12 hrs PreserVision AREDS-2 250-90-40-1 mg Capsule 1 tab PO BID Patient Comments: 01/19- otc unable to verify spironolactone 25 mg tablet 12.5 mg PO QAM Probiotic 15 billion cell capsule, sprinkle 1 cap PO DAILY Qty: 30 0RF Patient Comments: 01/19- otc unable to verify Rx Instructions: do not crush/chew/cut; swallow whole OR may open and sprinkle in cold drink/food metoprolol succinate 50 mg tablet extended release 24 hr 50 mg PO QAM torsemide 20 mg tablet 20 mg PO UD Rx Instructions: Take 1 tab every other day (4x/week) allopurinol 100 mg tablet 300 mg PO QAM Rx Instructions: dose correction - currently taking 100 mg daily colchicine 0.6 mg capsule 0.6 mg PO DAILY PRN (Reason: Other) Patient Comments: 01/19- last filled 10/24 30 day supply Rx Instructions: taking PRN as needed - see instructions Discharge Orders: Discharge Order (Routine); Ordered 01/22/25 Ordered By: Sapna Partida/Other Patient Handouts: Cefadroxil Oral Capsule Admission Data Admit Date/Time: 01/19/25 19:56 Attending Provider: Nura Amador Admit Provider: Calin Alex Primary Care Provider: El Calabrese Other Providers: Nura Amador; [place] Obando Other Interventions: Discharge Summary Assessment (RN) Last Done: 01/22/25 11:38 Supervising Physician Co-Signing Physician Notes ATTESTATION I also saw the patient and confirmed ruiz portions of the history and exam. I agree with the impression and plan in the resident documentation, and as corrected/summarized below. Really no complaint today. He notes continued subjective improvement. EXAM Hemodynamically stable Alert and oriented. NAD. CV I/I, rate controlled, 2/6 MARIAELENA LUSB, holosystolic murmur RLSB Respirations nonlabored Right LE, improved (less) edema, slight rubor. DATA Labs WBC 12.01 HgB 10.2 BUN 35, Cr 1.45 Micro Blood cultures no growth at 48 hours IMPRESSION & PLAN RLE cellulitis, improved HFpEF, stable CAD, stable Permanent AF, on systemic AC Severe pulmonary HTN Moderate Change to cefadroxil 500 mg PO BID for ease of administration compared to Keflex PCP follow up next week Discussed s/s for which to monitor Additional per resident documentation Resident Activity Tracking Resident Involvement: Resident Care Provided Care Provided: Adult Hospital Medicine
--- NOTE | 2025-01-22 16:48 | Electrocardiogram Report ---
Test Reason : Blood Pressure : */* mmHG Vent. Rate : 93 BPM Atrial Rate : * BPM P-R Int : * ms QRS Dur : 104 ms QT Int : 388 ms P-R-T Axes : * 92 218 degrees QTcB Int : 482 ms Atrial fibrillation Rightward axis Incomplete right bundle branch block Prolonged QT Abnormal ECG When compared with ECG of 20-Mar-2024 14:00, No significant change was found Confirmed by Fercho Lira ([id number]) on 01/22/2025 4:48:30 PM Referred By: Confirmed By: Fercho Lira
[2025-01-23] MEDS ORDERED: TORSEMIDE 20 MG TAB PO SCH (09:00)
== END 2025-01-22 14:56 | disposition home or self-care (01) | DRG 602 ==
LOC: ED 14:21 → SUATTDRO 19:56 → 2N 19:56 → INTOOBSV 19:56 → 2N 23:06

== ENCOUNTER 2025-01-26 12:25 | Inpatient (IN) ==
[2025-01-26 13:37] LABS: Hematocrit (blood only) 39.4 % (42.0-52.0); Hemoglobin 12.1 g/dL (14.0-18.0); Mean Corpuscular Hemoglobin 27.0 pg (25.0-34.0); Mean Corpuscular Volume 87.9 fL (80.0-100.0); Platelet Count 166 K/uL (130-400); RDW Standard Deviation 56.7 fL (36.4-46.3); Red Blood Count 4.48 M/uL (4.70-6.10); White Blood Count 14.35 K/ul (4.8-10.8)
--- NOTE | 2025-01-26 13:50 | XRay Report ---
SINGLE VIEW CHEST CLINICAL HISTORY: Chest pain FINDINGS: An AP, portable, upright chest radiograph is compared to study dated 01/21/2025 and correla melody with chest CT dated 11/15/2024. The examination is degraded by portable technique and apical lordot ic positioning. The heart is enlarged noting atherosclerotic calcification of the thoracic aorta The re is pulmonary vascular congestion with interstitial edema. Emphysematous changes observed. There ar e small pleural effusions with dependent consolidation. No pneumothorax is seen. The skeletal structu res are osteopenic. The bony thorax is grossly intact. Degenerative change is noted in the shoulders. IMPRESSION: 1. Cardiomegaly and emphysema with evidence of congestive failure and pulmonary edema. Radiographic f ollow-up to resolution is recommended. 2. Small pleural effusions with dependent consolidation. ACT 112: Negative or not required by law. Electronically signed by: Krzysztof Tapia M.D. 01/26/2025 1:48 PM
[2025-01-26 14:05] LABS: Alanine Aminotransferase 13.0 U/L (7-52); Albumin Globulin Ratio 1.8 (0.9-2); Albumin Level 4.4 gm/dl (3.4-5.0); Alkaline Phosphatase 191.0 U/L (34-104); Anion Gap 10.0 (3-11); Bilirubin,Total 1.6 mg/dl (0.2-1.0); Blood Urea Nitrogen 33.0 mg/dl (6-23); Calcium 9.5 mg/dl (8.6-10.3); Carbon Dioxide 25.0 mmol/L (21-32); Chloride 103.0 mmol/L (98-107); Creatinine Clr Calc Pharmacy 40.0 ml/min; Globulin 2.4 gm/dl (2.5-4.0); Glucose 100.0 mg/dl (70-99(Fasting)); Magnesium 2.6 mg/dl (1.7-2.4); Potassium 4.0 mmol/L (3.5-5.1); Sodium 138.0 mmol/L (136-145); Total Protein 6.8 gm/dl (6.0-8.3)
[2025-01-26 14:14] LABS: INR 1.3 (0.9-1.1); Partial Thromboplastin Time 24 Seconds (21-31); Prothrombin Time 13.3 Seconds (9.0-12.0)
--- NOTE | 2025-01-26 14:16 | Emergency Department Note ---
History of Present Illness General Chief complaint: Illness Stated complaint: FLUID RETENTION Time Seen by Provider: 01/26/25 13:52 History of Present Illness Patient is an 89-year-old male with past medical history significant for COPD, CAD, CHF, pulmonary hypertension, atrial fibrillation on Eliquis, hypertension, dyslipidemia, gout, osteomyelitis, recent right lower extremity cellulitis, who presents to the emergency department at the recommendation of his primary care provider for evaluation of "fluid retention." Patient was admitted to our facility 01/19-01/22 for right lower extremity cellulitis. He had his follow-up appointment with Felix today. In the last 24 hours, he has noticed increased bilateral lower extremity edema, and fluid retention in his abdomen and groin. He has chronic shortness of breath, and denies any changes in this. No chest pain. No palpitations. He feels he has been compliant with his medications, including his diuretic. He notes that he was not having any problem with fluid retention while in the hospital, it only developed in the last day. His provider at [facility] suggested he come to the emergency department for diuresis, as they did not feel that they could do this adequately with oral medications at home. Regarding the cellulitis, patient feels like the infection is healing well. He is tolerating the antibiotics as prescribed. Home Medications Medication Instructions Recorded Confirmed Type atorvastatin 40 mg tablet (Lipitor) 40 mg PO HS 06/18/20 01/26/25 History apixaban 5 mg tablet 5 mg PO BID #60 tabs 06/30/20 01/26/25 Rx mecobalamin (vitamin B12) 1,000 1,000 mcg sublingual DAILY 03/20/24 01/26/25 History mcg disintegrating tablet,sublingual digoxin 125 mcg (0.125 mg) tablet 125 mcg PO 3XWK 03/31/24 01/26/25 History umeclidinium 62.5 mcg-vilanterol 1 inh inhalation QAM 08/26/24 01/26/25 History 25 mcg/actuation powdr for inhalation (Anoro Ellipta) spironolactone 25 mg tablet 12.5 mg PO QAM 10/29/24 01/26/25 History vit C 250 mg-vit E 90 mg-zinc 40 1 tab PO BID 10/29/24 01/26/25 History mg-copper 1 [id number] capsule (PreserVision AREDS-2) lactobacillus combo no.11 15 1 cap PO DAILY #30 caps 10/30/24 01/26/25 Rx billion cell sprinkle capsule (Probiotic) lidocaine 5 % topical patch 1 patch topical DAILY PRN pain #15 11/15/24 01/26/25 Rx ea empagliflozin 10 mg tablet 10 mg PO QAM #90 tabs 11/18/24 01/26/25 Rx (Jardiance) colchicine 0.6 mg capsule 0.6 mg PO DAILY PRN Other 01/19/25 01/26/25 History torsemide 20 mg tablet 20 mg PO UD 01/19/25 01/26/25 History cefadroxil 500 mg capsule 500 mg PO BID 7 days #14 caps 01/22/25 01/26/25 Rx allopurinol 300 mg tablet 300 mg PO QAM 01/26/25 01/26/25 History Allergies Allergy/AdvReac Type Severity Reaction Status Date / Time TISHA Inhibitors AdvReac Mild COUGH Verified 10/29/24 17:40 Past Med/Surg History Problem List Bilateral edema of lower extremity (Acute) Cellulitis of leg, right (Acute) Acute gout Cellulitis of right leg Toe pain, right (Acute) Infected abrasion of second toe of right foot (Acute) Osteomyelitis (Acute) Chronic tophaceous gout of right foot Toe infection Complex sleep apnea syndrome Emphysema lung Witnessed episode of apnea Nocturnal hypoxemia CAD (coronary artery disease) (HFpEF) heart failure with preserved ejection fraction SOBOE (shortness of breath on exertion) Right ventricular dysfunction Pulmonary HTN Atrial flutter with rapid ventricular response Acute heart failure with preserved ejection fraction Acute HF (heart failure) (Acute) Atrial fibrillation with RVR (Acute) Encounter for pre-operative examination Encounter for pre-operative examination White blood cell abnormality Atrial fibrillation Community acquired pneumonia Encounter for pre-operative examination 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 Weaver On anticoagulant therapy eliquis bid Food impaction of esophagus History of pneumonia AROUND TIME OF AFIB, ? SPRING 2020 "SHOULD BE IN MY RECORDS" Moderate aortic stenosis Bicuspid aortic valve Chronic ischemic heart disease Paroxysmal atrial fibrillation with rapid ventricular response Atrial fibrillation with rapid ventricular response ? SPRING 2020 "SHOULD BE IN MY RECORDS" NO HX CARDIOVERSION, POSSIBLE CAUSE PNEUMONIA PER PT Osteoarthritis Prostate cancer 5 yrs ago > radiation Myocardial Infarction 1993 > RCA > Atenolol and Lipitor for this Dyslipidemia Surgical History History of left cataract extraction (~03/28/21) History of esophagogastroduodenoscopy (EGD) last 06/14/21 @ [facility] for food bolus History of right cataract extraction History of cardiac cath X3 TOTAL 1993 NO STENT(S) , 1998 CATH DID NOT CONSENT FOR STENT...SECOND CATH IN 1998 STENT X1 History of colonoscopy History of tooth extraction History of total knee replacement left H/O heart artery stent 1998 > x1 > follows with Dr. Weaver Family History Brother Colon cancer Other No family history of adverse response to anesthesia Social History Smoking Status: Never smoker Tobacco Type: Cigarettes Cigarettes Per Day: 2 PPD / Quit 50 years ago; Second Hand Exposure: No; Do You Dip or Chew Tobacco: No; Hx Alcohol Use: Yes Alcohol type: hard liquor Hx Substance Use: No Preferred Language: Citizen Of [place] Communication Ability: Effective Wait[employer]Wait[employer] Required: No Beliefs That Will Affect Care: None Current Living Situation: Spouse Current Living Situation Comment: House with Spouse Feels Safe at Home: Yes Assistive Devices: CPAP Review of Systems A total of 10 systems reviewed and were otherwise negative Physical Exam Vital Signs Vital Signs - 24 hr 01/26/25 12:27 01/26/25 12:48 01/26/25 12:53 Temperature 36.9 C Temperature Source Temporal Artery Scan Pulse Rate 89 Pulse Rate [Right Finger] 74 Pulse Rate from SpO2 Sensor Respiratory Rate 18 18 Respiratory Effort / Characteristics Non-Labored Spontaneous Respiratory Depth Normal Respiratory Pattern Regular Blood Pressure 104/69 Blood Pressure [Right Arm] 117/75 Blood Pressure Mean 80 Blood Pressure Mean [Right Arm] 89 Blood Pressure Position Sitting Blood Pressure Position [Right Arm] Pulse Oximetry 93 96 Oxygen Delivery Method Room Air Room Air Room Air Oxygen Flow Rate Sepsis Recent Fever Within 48 Hours No Sepsis New/Unexplained Change in Mental Status N/A Sepsis Action Taken by Nursing No Action Required Oxygen Flow Rate - Titration Pulse Oximetry Post Tiitration 01/26/25 12:53 01/26/25 13:28 01/26/25 15:49 Temperature Temperature Source Pulse Rate 86 91 H Pulse Rate [Right Finger] 82 Pulse Rate from SpO2 Sensor Respiratory Rate 18 22 Respiratory Effort / Characteristics Short of Breath Respiratory Depth Normal Respiratory Pattern Tachypnea Blood Pressure Blood Pressure [Right Arm] 104/74 Blood Pressure Mean Blood Pressure Mean [Right Arm] 84 Blood Pressure Position Blood Pressure Position [Right Arm] Semi-fowlers Pulse Oximetry 94 94 Oxygen Delivery Method Room Air Oxygen Flow Rate Sepsis Recent Fever Within 48 Hours Sepsis New/Unexplained Change in Mental Status Sepsis Action Taken by Nursing Oxygen Flow Rate - Titration Pulse Oximetry Post Tiitration 01/26/25 16:55 01/26/25 17:00 01/26/25 17:00 Temperature Temperature Source Pulse Rate 88 Pulse Rate [Right Finger] 91 H Pulse Rate from SpO2 Sensor 87 Respiratory Rate 24 21 Respiratory Effort / Characteristics SOB on Exertion Respiratory Depth Respiratory Pattern Regular Blood Pressure 119/78 Blood Pressure [Right Arm] 107/78 Blood Pressure Mean 91 Blood Pressure Mean [Right Arm] 87 Blood Pressure Position Blood Pressure Position [Right Arm] Semi-fowlers Pulse Oximetry 92 94 Oxygen Delivery Method Room Air Oxygen Flow Rate Sepsis Recent Fever Within 48 Hours Sepsis New/Unexplained Change in Mental Status Sepsis Action Taken by Nursing Oxygen Flow Rate - Titration Pulse Oximetry Post Tiitration 01/26/25 18:00 01/26/25 18:21 01/26/25 18:21 Temperature Temperature Source Pulse Rate Pulse Rate [Right Finger] Pulse Rate from SpO2 Sensor 86 Respiratory Rate Respiratory Effort / Characteristics Respiratory Depth Respiratory Pattern Blood Pressure 107/79 107/79 Blood Pressure [Right Arm] Blood Pressure Mean 89 89 Blood Pressure Mean [Right Arm] Blood Pressure Position Blood Pressure Position [Right Arm] Pulse Oximetry 95 Oxygen Delivery Method Oxygen Flow Rate Sepsis Recent Fever Within 48 Hours Sepsis New/Unexplained Change in Mental Status Sepsis Action Taken by Nursing Oxygen Flow Rate - Titration Pulse Oximetry Post Tiitration 01/26/25 18:21 01/26/25 18:21 01/26/25 18:21 Temperature Temperature Source Pulse Rate Pulse Rate [Right Finger] Pulse Rate from SpO2 Sensor Respiratory Rate Respiratory Effort / Characteristics Respiratory Depth Respiratory Pattern Blood Pressure 107/79 107/79 107/79 Blood Pressure [Right Arm] Blood Pressure Mean 89 89 89 Blood Pressure Mean [Right Arm] Blood Pressure Position Blood Pressure Position [Right Arm] Pulse Oximetry Oxygen Delivery Method Oxygen Flow Rate Sepsis Recent Fever Within 48 Hours Sepsis New/Unexplained Change in Mental Status Sepsis Action Taken by Nursing Oxygen Flow Rate - Titration Pulse Oximetry Post Tiitration 01/26/25 18:31 01/26/25 19:00 01/26/25 19:00 Temperature Temperature Source Pulse Rate 102 H Pulse Rate [Right Finger] 87 93 H Pulse Rate from SpO2 Sensor Respiratory Rate 18 18 Respiratory Effort / Characteristics Respiratory Depth Normal Respiratory Pattern Blood Pressure Blood Pressure [Right Arm] 102/69 Blood Pressure Mean Blood Pressure Mean [Right Arm] 80 Blood Pressure Position Blood Pressure Position [Right Arm] Pulse Oximetry 93 92 Oxygen Delivery Method Room Air Room Air Oxygen Flow Rate Sepsis Recent Fever Within 48 Hours Sepsis New/Unexplained Change in Mental Status Sepsis Action Taken by Nursing Oxygen Flow Rate - Titration Pulse Oximetry Post Tiitration 01/26/25 19:00 01/26/25 19:00 01/26/25 19:00 Temperature Temperature Source Pulse Rate Pulse Rate [Right Finger] Pulse Rate from SpO2 Sensor Respiratory Rate Respiratory Effort / Characteristics Respiratory Depth Respiratory Pattern Blood Pressure 102/69 102/69 102/69 Blood Pressure [Right Arm] Blood Pressure Mean 76 76 76 Blood Pressure Mean [Right Arm] Blood Pressure Position Blood Pressure Position [Right Arm] Pulse Oximetry Oxygen Delivery Method Oxygen Flow Rate Sepsis Recent Fever Within 48 Hours Sepsis New/Unexplained Change in Mental Status Sepsis Action Taken by Nursing Oxygen Flow Rate - Titration Pulse Oximetry Post Tiitration 01/26/25 19:00 01/26/25 19:00 01/26/25 20:14 Temperature Temperature Source Pulse Rate Pulse Rate [Right Finger] Pulse Rate from SpO2 Sensor Respiratory Rate Respiratory Effort / Characteristics Respiratory Depth Respiratory Pattern Blood Pressure 102/69 102/69 Blood Pressure [Right Arm] Blood Pressure Mean 76 76 Blood Pressure Mean [Right Arm] Blood Pressure Position Blood Pressure Position [Right Arm] Pulse Oximetry 89 L Oxygen Delivery Method Room Air Oxygen Flow Rate Sepsis Recent Fever Within 48 Hours Sepsis New/Unexplained Change in Mental Status Sepsis Action Taken by Nursing Oxygen Flow Rate - Titration 2 Pulse Oximetry Post Tiitration 93 01/26/25 21:13 Temperature Temperature Source Pulse Rate Pulse Rate [Right Finger] 99 H Pulse Rate from SpO2 Sensor Respiratory Rate 28 H Respiratory Effort / Characteristics SOB on Exertion Respiratory Depth Respiratory Pattern Regular Blood Pressure Blood Pressure [Right Arm] 93/72 L Blood Pressure Mean Blood Pressure Mean [Right Arm] 79 Blood Pressure Position Blood Pressure Position [Right Arm] Semi-fowlers Pulse Oximetry 94 Oxygen Delivery Method Nasal Cannula Oxygen Flow Rate 2 Sepsis Recent Fever Within 48 Hours Sepsis New/Unexplained Change in Mental Status Sepsis Action Taken by Nursing Oxygen Flow Rate - Titration Pulse Oximetry Post Tiitration CONSTITUTIONAL: Pleasant, elderly 89-year-old male who is awake and alert and sitting semiupright on the gurney. Vital signs are stable. EYES: Pupils equal, round, reactive to light and accommodation. EOMs intact without nystagmus. Sclera are anicteric. CARDIOVASCULAR: Irregular rate and rhythm, holosystolic murmur. Peripheral pulses easy to palpable. RESPIRATORY: Breath sounds diminished at the bases, few crackles and wheezes noted. GI: Bowel sounds are present. Abdomen is soft, mildly distended, tympanic to percussion throughout without guarding or rebound. Scrotal edema without erythema or tenderness noted. MUSCULOSKELETAL: Full range of motion of extremities x 4 with good strength. 2+ pitting edema to the knees bilaterally. INTEGUMENTARY: No lesions or rash, normal skin turgor. Course Course The patient was seen and assessed as above. External medical records are reviewed. He was referred to the ED by his primary care provider for evaluation of lower extremity edema, and concern for acute heart failure. Laboratory studies, EKG and chest x-ray were obtained. Case reviewed with attending physician, Dr. Soliz who agrees with the ED workup. Diagnostics, as interpreted by me: Laboratory studies: White count 14,300. H&H 12.1 and 39.4, platelet count 166,000. INR 1.3. No significant electrolyte imbalance, no HOSEA. Mildly elevated troponin 23.2, but chronic and stable appearing for the patient. BNP elevated at 1643. ECG: Rate controlled atrial fibrillation, 93 bpm. Incomplete right bundle branch block, no acute ischemic changes, no significant change on review of prior EKG. Cardiac monitoring: An order was placed for continuous cardiac monitoring. The monitor shows a atrial fibrillation 82 per my interpretation. Imaging studies: Chest x-ray notes pulmonary edema and congestive failure. Chronic cardiomegaly and emphysematous changes noted. Small bilateral pleural effusions noted. All laboratory and diagnostic imaging studies reviewed with the patient, and discussed with attending physician, Dr. Soliz. Patient reviewed with ED case investigator, [facility] The patient was discussed with Dr. Erickson for admission. Chronic conditions affecting care: COPD, CAD, CHF, pulmonary hypertension Differential diagnosis: acute myocardial infarction, acute coronary syndrome, myocarditis, pericarditis, pericardial effusions /tamponade, esophageal perforation, cardiomyopathy, congestive heart failure, anemia, COPD/asthma exacerbation, among others. Administered Medications Discontinued Medications Furosemide (Furosemide 40 Mg/4 Ml Vial) 40 mg IV ONE ONE Stop: 01/26/25 17:51 Last Admin: 01/26/25 18:39 Dose: 40 mg Documented By: MARIO ALBERTO Medical Decision Making Differential Diagnosis See ED Course. Medical Records Attestation: I reviewed the patient's medical records. Home Medications Current Medication List: was personally reviewed by me Laboratory Data Attestation: I reviewed the patient's lab results. 01/26/25 13:15 01/26/25 13:15 Lab Results 01/26/25 01/26/25 Range/Units 13:15 16:52 WBC 14.35 H (4.8-10.8) K/ul RBC 4.48 L (4.70-6.10) M/uL Hgb 12.1 L (14.0-18.0) g/dL Hct 39.4 L (42.0-52.0) % MCV 87.9 (80.0-100.0) fL MCH 27.0 (25.0-34.0) pg MCHC 30.7 L (32.0-36.0) g/dL RDW Std Deviation 56.7 H (36.4-46.3) fL RDW Coeff of [place] 18.4 H (11.5-14.5) % Plt Count 166 (130-400) K/uL MPV 9.4 (9.4-12.4) fL Immature Gran % (Auto) 0.5 % Neut % (Auto) 37.4 % Lymph % (Auto) 58.0 % [place] % (Auto) 3.3 % Eos % (Auto) 0.5 % Baso % (Auto) 0.3 % Neut # (Auto) 5.38 (1.40-6.50) K/uL Lymph # (Auto) 8.32 H (1.20-3.40) K/uL [place] # (Auto) 0.47 (0.11-0.59) K/uL Eos # (Auto) 0.07 (0.00-0.50) K/uL Baso # (Auto) 0.04 (0.00-0.20) K/uL Immature Gran # (Auto) 0.07 (0.01-0.20) K/uL Polychromasia 1+ Hypochromasia Present Tear Drop Cells 1+ Ovalocytes 1+ Stomatocytes 1+ PT 13.3 H (9.0-12.0) Seconds INR 1.3 H (0.9-1.1) APTT 24 (21-31) Seconds PTT Ratio 0.9 Sodium 138 (136-145) mmol/L Potassium 4.0 (3.5-5.1) mmol/L Chloride 103 (98-107) mmol/L Carbon Dioxide 25 (21-32) mmol/L Anion Gap 10 (3-11) BUN 33 H (6-23) mg/dl Creatinine 1.30 (0.6-1.4) mg/dl Est Cr Clr Drug Dosing 40.0 ml/min eGFR 52.84 BUN/Creatinine Ratio 25.4 H (10-20) Glucose 100 H (70-99(Fasting)) mg/dl Calcium 9.5 (8.6-10.3) mg/dl Magnesium 2.6 H (1.7-2.4) mg/dl Total Bilirubin 1.6 H (0.2-1.0) mg/dl AST 19 (13-39) U/L ALT 13 (7-52) U/L Alkaline Phosphatase 191 H (34-104) U/L Troponin I High Sens 23.2 H 22.2 H (0-20) pg/ml B-Natriuretic Peptide 1643 H (0-100) pg/ml Total Protein 6.8 (6.0-8.3) gm/dl Albumin 4.4 (3.4-5.0) gm/dl Globulin 2.4 L (2.5-4.0) gm/dl Albumin/Globulin Ratio 1.8 (0.9-2) Imaging Data Attestation: I personally reviewed and interpreted this imaging study as follows: Radiologist's Impression: Chest X-Ray 01/26/25 12:53 SINGLE VIEW CHEST CLINICAL HISTORY: Chest pain FINDINGS: An AP, portable, upright chest radiograph is compared to study dated 01/21/2025 and correlated with chest CT dated 11/15/2024. The examination is degraded by portable technique and apical lordotic positioning. The heart is enlarged noting atherosclerotic calcification of the thoracic aorta There is pulmonary vascular congestion with interstitial edema. Emphysematous changes observed. There are small pleural effusions with dependent consolidation. No pneumothorax is seen. The skeletal structures are osteopenic. The bony thorax is grossly intact. Degenerative change is noted in the shoulders. IMPRESSION: 1. Cardiomegaly and emphysema with evidence of congestive failure and pulmonary edema. Radiographic follow-up to resolution is recommended. 2. Small pleural effusions with dependent consolidation. ACT 112: Negative or not required by law. Electronically signed by: Krzysztof Tapia M.D. 01/26/2025 1:48 PM MDM Narrative See ED Course. Impression & Plan Acute HF (heart failure), Bilateral edema of lower extremity Discharge Plan Visit Data Chief Complaint: Illness Stated Complaint: FLUID RETENTION ED Provider: Beata Soliz ED Midlevel Provider: Edis Vega Discharge Problem: Acute HF (heart failure), Bilateral edema of lower extremity Patient Disposition: Being Evaluated by Hospitalist Condition: Fair Forms Stand Alone Forms: [facility] Rufus Simfinit Prescriptions Prescriptions: No Action Jardiance 10 mg tablet 10 mg PO QAM Qty: 90 3RF digoxin 125 mcg (0.125 mg) tablet 125 mcg PO 3XWK Rx Instructions: Sunday//Sunday mecobalamin (vitamin B12) 1,000 mcg tablet,disintegrating 1,000 mcg sublingual DAILY Patient Comments: Rx Instructions: place tablet under tongue and allow to dissolve for at least30 secs before swallowing umeclidinium-vilanterol [Anoro Ellipta] 62.5-25 mcg/actuation blister with device 1 inh inhalation QAM atorvastatin [Lipitor] 40 mg Tablet 40 mg PO HS apixaban 5 mg tablet 5 mg PO BID Qty: 60 0RF lidocaine 5 % adhesive patch,medicated 1 patch TOP DAILY PRN (Reason: pain) Qty: 15 0RF Rx Instructions: leave on most painful area for 12 hrs allopurinol 300 mg tablet 300 mg PO QAM PreserVision AREDS-2 250-90-40-1 mg Capsule 1 tab PO BID Patient Comments: spironolactone 25 mg tablet 12.5 mg PO QAM Probiotic 15 billion cell capsule, sprinkle 1 cap PO DAILY Qty: 30 0RF Patient Comments: Rx Instructions: do not crush/chew/cut; swallow whole OR may open and sprinkle in cold drink/food torsemide 20 mg tablet 20 mg PO UD Rx Instructions: Take 1 tab every other day (4x/week) colchicine 0.6 mg capsule 0.6 mg PO DAILY PRN (Reason: Other) Rx Instructions: taking PRN as needed - see instructions cefadroxil 500 mg capsule 500 mg PO BID 7 Days Qty: 14 0RF Rx Instructions: X 7 days Referrals Referrals: El Calabrese MD [Primary Care Provider] -
[2025-01-26 14:25] LABS: Hypochromasia Present; Immature Granulocytes # (auto) 0.07 K/uL (0.01-0.20); Immature Granulocytes % (auto) 0.5 %; Ovalocytes 1+; Polychromasia 1+; Stomatocytes 1+; Tear Drop Cells 1+
--- NOTE | 2025-01-26 17:57 | History & Physical Report ---
Date of Service January 26, 2025 Assessment & Plan (1) Acute HF (heart failure): (2) Atrial fibrillation with rapid ventricular response: (3) Cellulitis of leg, right: (4) CAD (coronary artery disease): (5) (HFpEF) heart failure with preserved ejection fraction: Plan #Acute on chronic HFpEF acute on chronic diastolic CHFalmost certainly due to sodium intake and fluid retentiondiurese. Supportive care. Hopefully home soon. Educate further on sodium restrictionhe recognized this very quicklyI pointed out the not chosen ham sandwich, and then he realized he ate the salted nuts as well #atrial fibrillationrate controlled, anticoagulated #elevated troponin/mild demand myocardial ischemiafrom CHF. Very mild. #Coronary artery diseaseappears stable, no anginal symptoms. Continue home medications #pulmonary hypertensionoutpatient management. #DVT prophylaxisanticoagulated for A-fib History of Present Illness Chief Complaint: full of fluid Primary Care Provider: El Calabrese MD patient is a very pleasant 89-year-old who presents with a chief complaint of "full of fluid"whenever asked him what symptoms he was feeling that made him feel like he was full of fluid, he initially repeated that he was full of fluid. Whenever asked to clarify what made him come to the ER he smiled and said "my ". He denies any new shortness of breath, but does note that he has chronic shortness of breath related to his pulmonary hypertension so he would not really notice anything new or different unless it was extreme. He does note that his abdomen has filled up with fluid and is more bloated. He also notes his legs are more swollen. He is up a good deal of weight. Yesterday he had a ham sandwich, nachos, and salted cashews. Allergies Allergy/AdvReac Type Severity Reaction Status Date / Time TISHA Inhibitors AdvReac Mild COUGH Verified 10/29/24 17:40 Home Medications Medication Instructions Recorded Confirmed Type atorvastatin 40 mg tablet (Lipitor) 40 mg PO HS 06/18/20 01/26/25 History apixaban 5 mg tablet 5 mg PO BID #60 tabs 06/30/20 01/26/25 Rx mecobalamin (vitamin B12) 1,000 1,000 mcg sublingual DAILY 03/20/24 01/26/25 History mcg disintegrating tablet,sublingual digoxin 125 mcg (0.125 mg) tablet 125 mcg PO 3XWK 03/31/24 01/26/25 History umeclidinium 62.5 mcg-vilanterol 1 inh inhalation QAM 08/26/24 01/26/25 History 25 mcg/actuation powdr for inhalation (Anoro Ellipta) spironolactone 25 mg tablet 12.5 mg PO QAM 10/29/24 01/26/25 History vit C 250 mg-vit E 90 mg-zinc 40 1 tab PO BID 10/29/24 01/26/25 History mg-copper 1 [id number]-[id number] capsule (PreserVision AREDS-2) lactobacillus combo no.11 15 1 cap PO DAILY #30 caps 10/30/24 01/26/25 Rx billion cell sprinkle capsule (Probiotic) lidocaine 5 % topical patch 1 patch topical DAILY PRN pain #15 11/15/24 01/26/25 Rx ea empagliflozin 10 mg tablet 10 mg PO QAM #90 tabs 11/18/24 01/26/25 Rx (Jardiance) colchicine 0.6 mg capsule 0.6 mg PO DAILY PRN Other 01/19/25 01/26/25 History torsemide 20 mg tablet 20 mg PO UD 01/19/25 01/26/25 History cefadroxil 500 mg capsule 500 mg PO BID 7 days #14 caps 01/22/25 01/26/25 Rx allopurinol 300 mg tablet 300 mg PO QAM 01/26/25 01/26/25 History Past Med/Surg History Problem List Bilateral edema of lower extremity (Acute) Cellulitis of leg, right (Acute) Acute gout Cellulitis of right leg Toe pain, right (Acute) Infected abrasion of second toe of right foot (Acute) Osteomyelitis (Acute) Chronic tophaceous gout of right foot Toe infection Complex sleep apnea syndrome Emphysema lung Witnessed episode of apnea Nocturnal hypoxemia CAD (coronary artery disease) (HFpEF) heart failure with preserved ejection fraction SOBOE (shortness of breath on exertion) Right ventricular dysfunction Pulmonary HTN Atrial flutter with rapid ventricular response Acute heart failure with preserved ejection fraction Acute HF (heart failure) (Acute) Atrial fibrillation with RVR (Acute) Encounter for pre-operative examination Encounter for pre-operative examination White blood cell abnormality Atrial fibrillation Community acquired pneumonia Encounter for pre-operative examination 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 Weaver On anticoagulant therapy eliquis bid Food impaction of esophagus History of pneumonia AROUND TIME OF AFIB, ? SPRING 2020 "SHOULD BE IN MY RECORDS" Moderate aortic stenosis Bicuspid aortic valve Chronic ischemic heart disease Paroxysmal atrial fibrillation with rapid ventricular response Atrial fibrillation with rapid ventricular response ? SPRING 2020 "SHOULD BE IN MY RECORDS" NO HX CARDIOVERSION, POSSIBLE CAUSE PNEUMONIA PER PT Osteoarthritis Prostate cancer 5 yrs ago > radiation Myocardial Infarction 1993 > RCA > Atenolol and Lipitor for this Dyslipidemia Surgical History History of left cataract extraction (~03/28/21) History of esophagogastroduodenoscopy (EGD) last 06/14/21 @ [facility] for food bolus History of right cataract extraction History of cardiac cath X3 TOTAL 1993 NO STENT(S) , 1998 CATH DID NOT CONSENT FOR STENT...SECOND CATH IN 1998 STENT X1 History of colonoscopy History of tooth extraction History of total knee replacement left H/O heart artery stent 1998 > x1 > follows with Dr. Weaver Family History Brother Colon cancer Other No family history of adverse response to anesthesia Social History Smoking Status: Never smoker Tobacco Type: Cigarettes Cigarettes Per Day: 2 PPD / Quit 50 years ago; Second Hand Exposure: No; Do You Dip or Chew Tobacco: No; Hx Alcohol Use: Yes Alcohol type: hard liquor Hx Substance Use: No Preferred Language: Tajik Communication Ability: Effective Welt Stitcher Required: No Beliefs That Will Affect Care: None Current Living Situation: Spouse Current Living Situation Comment: House with Spouse Feels Safe at Home: Yes Assistive Devices: CPAP Review of Systems Review of Systems: All systems reviewed & are unremarkable except as noted in HPI & below Physical Exam Physical Exam: In general he is awake alert oriented pleasant no distress. HEENT normocephalic atraumatic mucous membranes moist. Cardio is regular but distant. Lungs show bibasilar rales. Abdomen is bloated and mildly distended. Extremities show bilateral lower extremity roughly 2+ edema no calf tenderness. Results & Data Results & Data Vital Signs (Past 12 Hours) Vital Signs Temp Pulse Pulse Resp BP BP Pulse Ox 01/26/25 16:55 91 H 24 107/78 92 01/26/25 15:49 82 22 104/74 94 01/26/25 13:28 91 H 01/26/25 12:53 86 18 94 01/26/25 12:53 01/26/25 12:48 98.4 F 89 18 104/69 96 01/26/25 12:27 74 18 117/75 93 O2 Del Method 01/26/25 16:55 Room Air 01/26/25 15:49 Room Air 01/26/25 13:28 01/26/25 12:53 01/26/25 12:53 Room Air 01/26/25 12:48 Room Air 01/26/25 12:27 Room Air PG Care Time/CCT Total # of Minutes Spent Total Time Spent with Patient: Total time spent is greater than 50% in coordination of care (as documented) at patient's floor/unit and/or counseling patient: Coding Level of Care Code 66271 INT INP/OBS CARE 3/75MIN Diagnoses Acute HF (heart failure) I50.9 Atrial fibrillation with rapid ventricular response I48.91 Cellulitis of leg, right L03.115 Coronary artery disease involving [place] coronary artery of [place] heart without angina pectoris I25.10 Coronary Disease-Associated Artery/Lesion type: [place] artery [place] vs. transplanted heart: [place] heart Associated angina: without angina Chronic heart failure with preserved ejection fraction I50.32 Heart failure chronicity: chronic (4) CAD (coronary artery disease) Coronary Disease-Associated Artery/Lesion type: [place] artery [place] vs. transplanted heart: [place] heart Associated angina: without angina Qualified Code(s): I25.10 - Atherosclerotic heart disease of [place] coronary artery without angina pectoris (5) (HFpEF) heart failure with preserved ejection fraction Heart failure chronicity: chronic Qualified Code(s): I50.32 - Chronic diastolic (congestive) heart failure
[2025-01-26] MEDS: FUROSEMIDE 40 MG/4 ML VIAL IV ONE (18:39)
[2025-01-26] MEDS ORDERED: ALUMINUM/MAGNESIUM SUSP 30 ML UDC PO PRN (22:48)
[2025-01-26] MEDS ORDERED: ACETAMINOPHEN 325 MG TAB PO PRN (22:48)
[2025-01-26] MEDS ORDERED: MAGNESIUM HYDROXIDE SUSP 30 ML UDC PO PRN (22:48)
[2025-01-26] MEDS ORDERED: POLYETHYLENE (MIRALAX) 17 GM PACK PO PRN (22:48)
[2025-01-26] MEDS ORDERED: ONDANSETRON INJ 2 MG/ML 2 ML VIAL IV PRN (22:48)
[2025-01-26] MEDS ORDERED: COLCHICINE 0.6 MG TAB PO PRN (23:13)
[2025-01-26] MEDS: CEROVITE ADV FORMULA TAB PO SCH (23:54)
[2025-01-26] MEDS: APIXABAN 5 MG TABLET PO SCH (23:55)
[2025-01-26] MEDS: ATORVASTATIN 40 MG TAB PO SCH (23:55)
--- NOTE | 2025-01-27 06:00 | Electrocardiogram Report ---
Test Reason : Blood Pressure : */* mmHG Vent. Rate : 93 BPM Atrial Rate : * BPM P-R Int : * ms QRS Dur : 102 ms QT Int : 400 ms P-R-T Axes : * 74 258 degrees QTcB Int : 497 ms Atrial fibrillation Incomplete right bundle branch block Prolonged QT Abnormal ECG When compared with ECG of 19-Jan-2025 14:33, No significant change was found Confirmed by Chase Estrada ([id number]) on 01/27/2025 5:59:57 AM Referred By: Confirmed By: Chase Estrada
[2025-01-27 07:16] LABS: Hematocrit (blood only) 31.9 % (42.0-52.0); Hemoglobin 9.9 g/dL (14.0-18.0); Mean Corpuscular Hemoglobin 26.9 pg (25.0-34.0); Mean Corpuscular Volume 86.7 fL (80.0-100.0); Platelet Count 156 K/uL (130-400); RDW Standard Deviation 56.1 fL (36.4-46.3); Red Blood Count 3.68 M/uL (4.70-6.10); White Blood Count 13.33 K/ul (4.8-10.8)
[2025-01-27 07:22] LABS: Smudge Cells Present
[2025-01-27 07:29] LABS: Anion Gap 10.0 (3-11); Blood Urea Nitrogen 37.0 mg/dl (6-23); Calcium 8.8 mg/dl (8.6-10.3); Carbon Dioxide 24.0 mmol/L (21-32); Chloride 105.0 mmol/L (98-107); Creatinine Clr Calc Pharmacy 36.4 ml/min; Glucose 108.0 mg/dl (70-99(Fasting)); Potassium 4.1 mmol/L (3.5-5.1); Sodium 139.0 mmol/L (136-145)
[2025-01-27 08:18] LABS: Immature Granulocytes # (auto) 0.05 K/uL (0.01-0.20); Immature Granulocytes % (auto) 0.4 %; Polychromasia 1+; Tear Drop Cells 1+
[2025-01-27] MEDS: UMECLIDINIUM/VILANTEROL 62.5/25MCG 7 PUFFS/INHALER INH SCH (09:11)
[2025-01-27] MEDS: EMPAGLIFLOZIN 10 MG TAB PO SCH (09:12)
[2025-01-27] MEDS: CYANOCOBALAMIN (B-12) 500 MCG TABLET PO SCH (09:13)
[2025-01-27] MEDS: ADVANCED PROBIOTIC 625 MG CAPSULE PO SCH (09:13)
[2025-01-27] MEDS: FUROSEMIDE 40 MG/4 ML VIAL IV SCH (09:25)
[2025-01-27] MEDS: SPIRONOLACTONE 12.5 MG TAB PO SCH (09:26)
--- NOTE | 2025-01-27 11:28 | XCELERA ---
[id number]
[2025-01-27] MEDS: DIGOXIN 0.125 MG TAB PO SCH (16:16)
--- NOTE | 2025-01-27 16:51 | Hospitalist Progress Note ---
Date of Service January 27, 2025 Assessment & Plan (1) Acute HF (heart failure): (2) Atrial fibrillation with rapid ventricular response: (3) Cellulitis of right leg: (4) CAD (coronary artery disease): (5) (HFpEF) heart failure with preserved ejection fraction: Plan Patient is an 89 y/o M PMHx h/o gout, osteomyelitis, COPD, CAD, Chronic HFpEF, pulmonary HTN, atrial fibrillation on Eliquis , HTN , HLD who is admitted for acute on chronic HF likely in the setting of increased salt intake. acute on chronic HFpEF - appears to still be mildly fluid overloaded on exam. Abdomen mild distension, however soft and nontender. BL pitting edema lower extremities R>L. - CXR with cardiomegaly and emphysema with evidence of congestive failure and pulmonary edema. - electrolytes, Mg wnl this morning. Cr 1.3 -> 1.4. BNO 1643 on admission - echo completed: EF 55-60% with flatten septum consistent with RV pressure overload ; severely dilated RV with mildly reduced function ; severe aortic stenosis, mild MR ; severe pulmonary HTN, establed PASTP 65-70mmHg ; dilated aortic root (4.2cm) - continue furosemide 40mg IV daily - continue home Jardiane 10mg po qAM - BPs kind of soft - currently held morning spironolactone and furosemide ; however this might be where patient sits naturally due to his hx pulmonary HTN - strict I&Os, daily weights, sodium restriction - cardiology consulted given complex cardiac history - appreciate their recommendations - BMP, Mg qAM atrial fibrillation RVR - currently rate controlled, cardiac monitoring overnight w/o actionable events HR 80s - continue Eliquis 5mg po bid - holding home metoprolol due to pressures. Can restart tomorrow if BP can tolerate. elevated troponin - 23.1 on admission, repeat 2hr 22.2 - likely demand mediated given acute CHF exacerbation as above - continue cardiac monitoring - EKG prn chest pain CAD - continue atorvastatin 40mg po pulmonary HTN - following with cardiology outpatient DVT prophylaxis: eliquis as above Dispo: med/tele Admission and Anticipated Discharge Date Admission Date: January 26, 2025 Supervising Physician Co-Signing Physician Notes I personally examined the patient and verified all ruiz points of history and exam, discussed case, and agree with decision making with Dr Whiteside Breathing okay. Swelling a bit better. Extensive discussions with patient and family, answered all questions to the best my ability and to their satisfaction. Vitals noted, in general he is awake and alert pleasant no distress. HEENT normocephalic atraumatic mucous membranes moist. Lungs are clearthe Rales I heard yesterday are no longer present, no rales rhonchi or wheezes with good effort. Abdomen is soft far less distended and nontender. Extremities show improved bilateral lower extremity edema. Labs and diagnostics noted. Acute HFpEF/combined acute on chronic diastolic and right-sided CHF along with severe pulmonary hypertension - lungs are clearleft-sided failure appears to have improved - extensive discussion with patient and family on the difficulties in diuresing fluid overload when it is now predominantly right-sided CHF and the risks that this entailscautious diuresis with close following, encouraged ambulation for muscle contraction to mobilize third spaced fluid, add thigh-high SCDs to mobilize fluid when he is in bed, discussed that it would not be unreasonable to do 15-20 minutes of Trendelenburg before diuretic dosing to also utilize gravity to help mobilize fluids. Follow basic metabolic panel and blood pressure carefully, low threshold to cease diuresis if his pressures get too low or if creatinine rises too muchwould then allow the right sided fluid to be mobilized more slowly over time with ambulation/elevation/compression - appreciate cardiology input - discussed sodium restriction in more depth. anticoagulated otherwise as above Subjective patient seen and examined at bedside this morning. alert, awake, no acute distress. well better than when he first arrived yesterday, states he is "less bloated." no overnight concerns. no acute complaints. denies fever/chills, chest pain, SOB. Review of Systems Review of Systems: as per hpi Physical Exam Physical Exam: GENERAL APPEARANCE: well nourished PSYCH: no acute distress NEURO: Alert and oriented x3 CARDIAC: normal rate, irregular rhythm. Murmur appreciated. . LUNGS: Diminished airflow through lung bases. Clear to auscultation without rales, rhonchi, wheezing or diminished breath sounds. ABDOMEN: Soft, mildly distended, nontender. No guarding or rebound. EXTREMITIES: BL pitting edema lower extremities R > L. no erythema or tenderness. Results & Data Results & Data Vital Signs (Past 12 Hours) Vital Signs Temp Pulse Pulse Resp BP Pulse Ox O2 Del Method 01/27/25 16:05 36.4 C L 84 18 97/64 L 91 Room Air 01/27/25 12:07 36.4 C L 79 18 102/67 90 Room Air 01/27/25 08:11 36.3 C L 70 18 99/63 L 95 Nasal Cannula 01/27/25 07:57 81 01/27/25 07:57 Nasal Cannula O2 Flow Rate 01/27/25 16:05 01/27/25 12:07 01/27/25 08:11 2 01/27/25 07:57 01/27/25 07:57 2 (4) CAD (coronary artery disease) Associated angina: without angina Coronary Disease-Associated Artery/Lesion type: [place] artery [place] vs. transplanted heart: [place] heart Qualified Code(s): I25.10 - Atherosclerotic heart disease of [place] coronary artery without angina pectoris (5) (HFpEF) heart failure with preserved ejection fraction Heart failure chronicity: chronic Qualified Code(s): I50.32 - Chronic diastolic (congestive) heart failure
--- NOTE | 2025-01-27 17:21 | Cardiology Consultation ---
Date of Consultation January 27, 2025 Assessment & Plan (1) (HFpEF) heart failure with preserved ejection fraction: EF 55%. Torsemide 20mg 3x/week; SGLT2/MRA 2. Multivessel CAD inferior AR 1993 no stent, BMS to OM, PTCA and RCA 1998 RCA [employer] SU[employer] with [id number] collaterals, patent OM stent, 45% LAD 03/2024 3. Permanent AF Failed amiodarone/cardioversion 10/2023 Rate controlled, BB/digoxin. [id number] 5, Eliquis 4. Severe pulmonary hypertension Who group II/III. Mixed pre-/postcapillary. Cath 03/2024 RA 18, PA 68/33(47), LVEDP 21, PVR 5.4 PURCELL Severe RV dilation echo 10/2023 Dsypnea class II-III, 6MWT 208 m 5. Moderate ASpullback gradient 27 mmHg 6. Severe DOREEN/nocturnal hypoxemiafollowed by Dr. Pittman, on CPAP 7. Emphysemamild to moderate restrictive PFTs 03/2024 8. Mildly dilated aortic root/ascending aorta--4.3 cm echo 10/2023, CT 07/2024 9. Anemia--Hb 11.8 10. Dyslipidemia--atorva 40 11. Right lower extremity gout versus cellulitis 12. Mild HOSEA Seen today in the setting of acute on chronic HFpEF. Weight up 15 to 20 pounds from earlier this fall. No clear acute precipitants but with his complex heart disease he is high risk for decompensation. On review of his echo his aortic valve gradients are comparable to 10/2023 but do feel Aortic valve disease has progressed, now potentially consistent with low- flow, low gradient severe . Agree with need for additional diuresis. Ideally would target net -500 to 1 L today Received IV Lasix yesterday in the ED with reasonable response. No diuretic given today and limited urine output thus far. Will give 40 mg IV now. Continue to follow I's/O and creatinine. If urine output limited would consider increasing to twice daily tomorrow Can hold home torsemide while receiving IV diuretic Continue current Jardiance, resume spironolactone Continue current Toprol-XL, digoxin and Eliquis Discussed with family importance of salt restriction, daily weights Continue current statin Long-term with progression in may need to consider TAVR eval. Discussed what that it would entail with family today. Appreciate hospital medicine care. Will continue to follow. History of Present Illness Attending Physician: Armen Erickson DO History of Present Illness Mr. Bennett is a very pleasant 89-year-old man known to me from the outpatient setting with a history of HFpEF, CAD, permanent AF, severe pulm hypertension and at least moderate currently admitted in the setting of acute heart failure. He was last seen by me 09/2024. At that time he was doing well, able to walk about a half a mile without significant dyspnea. More recently he has had 2 recent hospitalizations, initially in November for right lower extremity gout versus cellulitis. Again hospitalized 01/19 - 01/22/2025 for right lower extremity cellulitis for which initially received IV antibiotics and discharged on cefadroxil. He was seen by his PCP yesterday and per family report due to concerns for increased right lower extremity redness and fluid retention with sent back to ED. On presentation mildly hypoxic with O2 sat down to high 80s on room air. Chest x-ray showed mild congestion and BNP significantly elevated at 1600. HS TropI flat in the 20s. Creatinine slightly elevated at 1.4. ECG showed rate controlled atrial fibrillation with stable anterolateral ST abnormal ity. Of note patient's weight up 10 pounds from last visit with me, 20 pounds from weights recorded in November. He reports notable scrotal edema, minimal lower extremity edema. No real orthopnea. Denies palpitations or new chest pain. Repeat echo today showed preserved LV function with no no regional wall motion abnormalities. RV severely dilated with mildly reduced function. Again had se miranda pulmonary hypertension with estimated PASP >60. Aortic valve heavily calcified and consistent with low-flow, low gradient severe (gradients not significantly changed from 10/2023. Allergies Allergy/AdvReac Type Severity Reaction Status Date / Time TISHA Inhibitors AdvReac Mild COUGH Verified 10/29/24 17:40 Home Medications Medication Instructions Recorded Confirmed Type atorvastatin 40 mg tablet (Lipitor) 40 mg PO HS 06/18/20 01/26/25 History apixaban 5 mg tablet 5 mg PO BID #60 tabs 06/30/20 01/26/25 Rx mecobalamin (vitamin B12) 1,000 1,000 mcg sublingual DAILY 03/20/24 01/26/25 History mcg disintegrating tablet,sublingual digoxin 125 mcg (0.125 mg) tablet 125 mcg PO 3XWK 03/31/24 01/26/25 History umeclidinium 62.5 mcg-vilanterol 1 inh inhalation QAM 08/26/24 01/26/25 History 25 mcg/actuation powdr for inhalation (Anoro Ellipta) spironolactone 25 mg tablet 12.5 mg PO QAM 10/29/24 01/26/25 History vit C 250 mg-vit E 90 mg-zinc 40 1 tab PO BID 10/29/24 01/26/25 History mg-copper 1 oj-mgevzp-ywmtcn capsule (PreserVision AREDS-2) lactobacillus combo no.11 15 1 cap PO DAILY #30 caps 10/30/24 01/26/25 Rx billion cell sprinkle capsule (Probiotic) lidocaine 5 % topical patch 1 patch topical DAILY PRN pain #15 11/15/24 01/26/25 Rx ea empagliflozin 10 mg tablet 10 mg PO QAM #90 tabs 11/18/24 01/26/25 Rx (Jardiance) colchicine 0.6 mg capsule 0.6 mg PO DAILY PRN Other 01/19/25 01/26/25 History torsemide 20 mg tablet 20 mg PO UD 01/19/25 01/26/25 History cefadroxil 500 mg capsule 500 mg PO BID 7 days #14 caps 01/22/25 01/26/25 Rx allopurinol 300 mg tablet 300 mg PO QAM 01/26/25 01/26/25 History Patient History Medical History Aortic stenosis gets echo every year to monitor > follows Dr. Weaver On anticoagulant therapy eliquis bid Food impaction of esophagus History of pneumonia AROUND TIME OF AFIB, ? SPRING 2020 "SHOULD BE IN MY RECORDS" Moderate aortic stenosis Bicuspid aortic valve Chronic ischemic heart disease Paroxysmal atrial fibrillation with rapid ventricular response Atrial fibrillation with rapid ventricular response ? SPRING 2020 "SHOULD BE IN MY RECORDS" NO HX CARDIOVERSION, POSSIBLE CAUSE PNEUMONIA PER PT Osteoarthritis Prostate cancer 5 yrs ago > radiation Myocardial Infarction 1993 > RCA > Atenolol and Lipitor for this Dyslipidemia Surgical History History of left cataract extraction (~03/28/21) History of esophagogastroduodenoscopy (EGD) last 06/14/21 @ [facility] for food bolus History of right cataract extraction History of cardiac cath X3 TOTAL 1993 NO STENT(S) , 1998 CATH DID NOT CONSENT FOR STENT...SECOND CATH IN 1998 STENT X1 History of colonoscopy History of tooth extraction History of total knee replacement left H/O heart artery stent 1998 > x1 > follows with Dr. Weaver Family History Brother Colon cancer Other No family history of adverse response to anesthesia Social History Smoking Status: Former smoker Tobacco Type: Cigarettes Cigarettes Per Day: 2 PPD / Quit 50 years ago; Second Hand Exposure: No; Do You Dip or Chew Tobacco: No; Hx Alcohol Use: Yes Alcohol type: hard liquor Hx Substance Use: No Preferred Language: [place] Communication Ability: Effective Equalizer Operator Required: No Beliefs That Will Affect Care: None Current Living Situation: Spouse Current Living Situation Comment: House with Spouse Feels Safe at Home: Yes Assistive Devices: Denture - Lower, Glasses, Hearing Aid - Bilateral and Oxygen - at Night Review of Systems Review of Systems: All systems reviewed & are unremarkable except as noted in HPI & below Physical Exam Physical Exam: General: Dyspneic with sitting up HEENT: Sclerae anicteric Lungs: Lungs decreased worse in the left base, crackles bilaterally to mid portions Cardiac: Irregular irregular, normal rate, 3 of 6 systolic ejection murmur, mid peaking. Holosystolic murmur at right lower sternal border. No JVD Vascular: 2+ radial pulses. Palpable DP pulses bilaterally Abdomen: Soft, nontender Extremities: Well perfused, trace right greater than left lower extremity edema, minimal hyperpigmentation Neuro: Nonfocal Psych: Alert orient x3, normal affect and mood Results & Data Vital Signs (Past 12 Hours) Vital Signs Temp Pulse Pulse Resp BP Pulse Ox O2 Del Method 01/27/25 16:05 97.5 F L 84 18 97/64 L 91 Room Air 01/27/25 12:07 97.5 F L 79 18 102/67 90 Room Air 01/27/25 08:11 97.3 F L 70 18 99/63 L 95 Nasal Cannula 01/27/25 07:57 81 01/27/25 07:57 Nasal Cannula O2 Flow Rate 01/27/25 16:05 01/27/25 12:07 01/27/25 08:11 2 01/27/25 07:57 01/27/25 07:57 2 PG Care Time/CCT Total # of Minutes Spent Total Time Spent with Patient: Total time spent is greater than 50% in coordination of care (as documented) at patient's floor/unit and/or counseling patient: Coding Level of Care Code 65127 INT INP/OBS CARE 3/75MIN Diagnoses Chronic heart failure with preserved ejection fraction I50.32 Heart failure chronicity: chronic (1) (HFpEF) heart failure with preserved ejection fraction Heart failure chronicity: chronic Qualified Code(s): I50.32 - Chronic diastolic (congestive) heart failure
[2025-01-27] MEDS: FUROSEMIDE 40 MG/4 ML VIAL IV ONE (18:40)
--- NOTE | 2025-01-27 19:16 | Billing Data ---
Date of Service January 27, 2025 Coding Level of Care Code 27097 SUB INP/OBS CARE MIN
[2025-01-28 08:29] LABS: Anion Gap 10.0 (3-11); Blood Urea Nitrogen 35.0 mg/dl (6-23); Calcium 8.8 mg/dl (8.6-10.3); Carbon Dioxide 24.0 mmol/L (21-32); Chloride 105.0 mmol/L (98-107); Creatinine Clr Calc Pharmacy 35.6 ml/min; Glucose 103.0 mg/dl (70-99(Fasting)); Magnesium 2.4 mg/dl (1.7-2.4); Potassium 3.8 mmol/L (3.5-5.1); Sodium 139.0 mmol/L (136-145)
--- NOTE | 2025-01-28 08:43 | Hospitalist Progress Note ---
Date of Service January 28, 2025 Assessment & Plan (1) Acute HF (heart failure): (2) Cellulitis of right leg: (3) CAD (coronary artery disease): (4) (HFpEF) heart failure with preserved ejection fraction: Plan Patient is an 89 y/o M PMHx h/o gout, osteomyelitis, COPD, CAD, Chronic HFpEF, pulmonary HTN, atrial fibrillation on Eliquis , HTN , HLD who is admitted for acute on chronic HF likely in the setting of increased salt intake. acute on chronic HFpEF - appears to still be mildly fluid overloaded on exam. Abdominal distension is slightly improved from yesterday. BL pitting edema lower extremities R>L. - CXR with cardiomegaly and emphysema with evidence of congestive failure and pulmonary edema. BNP 1643 on admission - echo completed: EF 55-60% with flatten septum consistent with RV pressure overload ; severely dilated RV with mildly reduced function ; severe aortic stenosis, mild MR ; severe pulmonary HTN, establed PASTP 65-70mmHg ; dilated aortic root (4.2cm) - electrolytes, Mg wnl this morning. Cr 1.42 -> 1.46 (baseline 1.1-1.2) - continue furosemide 40mg IV daily -- was held for one dose yesterday due to exam in the morning. On repeat exam by cardiology, appeared fluid overloaded and was given furosemide 40mg IV. - this morning, patient appearing more euvolemic, BP 99/60 - hold furosemide and spironolactone for one dose again ; will reassess patient later today to monitor fluid status - he is on torsemide 20mg po at home - hold - total output since admission: -590 mL - baseline weight 170lbs ; weight today 185.2lb (84.2kg) - continue Jardiance 10mg po qAM - cardiology consulted and appreciate their recommendations - strict I&Os, daily weights, sodium restriction - BMP, Mg qAM atrial fibrillation RVR - currently rate controlled, cardiac monitoring overnight w/o actionable events HR 80s - continue Eliquis 5mg po bid - resume metoprolol 50mg po qAM, digoxin 0.125mg po daily, and Eliquis 5mg po bid. - continue cardiac monitoring. elevated troponin - 23.1 on admission, repeat 2hr 22.2 - likely demand mediated given acute CHF exacerbation as above - continue cardiac monitoring - EKG prn chest pain CAD - continue atorvastatin 40mg po severe aortic stenosis - repeat echo as above ; there is progression of his aortic stenosis demonstrated on recent echo when compared to previous - now low-flow, low gradient severe . - consider TAVR evaluation with cardiology in outpatient setting. pulmonary HTN - following with cardiology outpatient DVT prophylaxis: eliquis as above Dispo: med/tele Admission and Anticipated Discharge Date Admission Date: January 26, 2025 Supervising Physician Co-Signing Physician Notes I personally examined the patient and verified all ruiz points of history and exam, discussed case, and agree with decision making with Dr Whiteside very tired today. no new issues noted otherwise. Vitals noted, in general he is resting comfortably and appears in no distress. HEENT normocephalic atraumatic mucous membranes moist. breathing unlabored no accessory muscles good effort Acute HFpEF/combined acute on chronic diastolic and right-sided CHF along with severe pulmonary hypertension - lungs have clearedleft-sided failure appears to have improved - have had extensive discussion with patient and family on the difficulties in diuresing fluid overload when it is now predominantly right-sided CHF and the risks that this entailscautious diuresis with close following, encouraged ambulation for muscle contraction to mobilize third spaced fluid, added thigh-high SCDs to mobilize fluid when he is in bed, discussed that it would not be unreasonable to do 15-20 minutes of Trendelenburg before diuretic dosing to also utilize gravity to help mobilize fluids. Follow basic metabolic panel and blood pressure carefully, low threshold to cease diuresis if his pressures get too low or if creatinine rises too muchBP still reasonable today and creatinine only went up slightly - appreciate cardiology input - discussed sodium restriction again. anticoagulated otherwise as above Subjective patient seen and examined at bedside this morning. alert, awake, no acute distress. states his breathing is better is much better than when he arrived, he is also has been producing more urine than yesterday. no overnight concerns. no acute complaints. denies fever/chills, chest pain, SOB. Review of Systems Review of Systems: as per hpi Physical Exam Physical Exam: Vital signs reviewed. General: Well-appearing, in no significant distress. HEENT: No scleral icterus, PERRLA, neck supple. Atraumatic. Cardiovascular: Regular rate, irregular rhythm. murmur appreciated Pulmonary: Clear to auscultation bilaterally, normal work of breathing. 2L NC in place Abdomen: Mild abdominal distension w/o tenderness, rebound or guarding. Musculoskeletal: BL pitting edema R>L lower extremities. W/o erythema, warmth or tenderness Neurologic: Patient awake alert and oriented. Moving all extremities spontaneously. CN II-XII grossly intact. Skin: Warm, dry, no rash Results & Data Results & Data Vital Signs (Past 12 Hours) Vital Signs Temp Pulse Pulse Resp BP Pulse Ox O2 Del Method 01/28/25 07:45 36.3 C L 81 20 99/63 L 98 Nasal Cannula 01/28/25 05:41 79 01/28/25 03:30 36.4 C L 81 20 92/62 L 96 Nasal Cannula 01/28/25 00:09 36.3 C L 96 H 20 91/66 L 92 Nasal Cannula 01/27/25 22:09 100 H O2 Flow Rate 01/28/25 07:45 01/28/25 05:41 01/28/25 03:30 2 01/28/25 00:09 2 01/27/25 22:09 (3) CAD (coronary artery disease) Associated angina: without angina Coronary Disease-Associated Artery/Lesion type: [place] artery [place] vs. transplanted heart: belk[place]ski heart Qualified Code(s): I25.10 - Atherosclerotic heart disease of [place]ski coronary artery without angina pectoris (4) (HFpEF) heart failure with preserved ejection fraction Heart failure chronicity: chronic Qualified Code(s): I50.32 - Chronic diastolic (congestive) heart failure
[2025-01-28] MEDS: METOPROLOL SUCC 50MG EXT REL TAB PO ONE (08:53)
[2025-01-28] MEDS ORDERED: TORSEMIDE 20 MG TAB PO SCH (09:00)
[2025-01-28] MEDS: FUROSEMIDE 40 MG/4 ML VIAL IV ONE (13:29)
--- NOTE | 2025-01-28 16:44 | Billing Data ---
Date of Service January 28, 2025 Coding Level of Care Code 95386 SUB INP/OBS CARE MIN
--- NOTE | 2025-01-28 17:02 | Cardiology Progress Note ---
Date of Service January 28, 2025 Assessment & Plan (1) (HFpEF) heart failure with preserved ejection fraction: Plan: EF 55%. Torsemide 20mg 3x/week; SGLT2/MRA 2. Multivessel CAD inferior [place] 1993 no stent, BMS to OM, PTCA and RCA 1998 RCA SNUBBER with [id number] collaterals, patent OM stent, 45% LAD 03/2024 3. Permanent AF Failed amiodarone/cardioversion 10/2023 Rate controlled, BB/digoxin. [id number] 5, Eliquis 4. Severe pulmonary hypertension Who group II/III. Mixed pre-/postcapillary. Cath 03/2024 RA 18, PA 68/33(47), LVEDP 21, PVR 5.4 PURCELL Severe RV dilation echo 10/2023 Dsypnea class II-III, 6MWT 208 m 5. Moderate ASpullback gradient 27 mmHg 6. Severe DOREEN/nocturnal hypoxemiafollowed by Dr. Pittman, on CPAP 7. Emphysemamild to moderate restrictive PFTs 03/2024 8. Mildly dilated aortic root/ascending aorta--4.3 cm echo 10/2023, CT 07/2024 9. Anemia--Hb 11.8 10. Dyslipidemia--atorva 40 11. Right lower extremity gout versus cellulitis 12. Mild HOSEA Clinically looks improved today, breathing comfortably off oxygen, lungs clear Output/weights not significantly changed Creatinine stable. Overall symptoms improved but some congestion persists. Concern for quick recurrence of HF symptoms if unable to make further net negative this hospitalization Recommend additional IV diuresis today, target at least net -500. Given 1 dose of IV Lasix this afternoon Can hold home torsemide while receiving IV diuretic Continue current Jardiance, okay to resume spironolactone Continue current Toprol-XL, digoxin and Eliquis Continue current statin Long-term with progression in may need to consider TAVR eval. Discussed what that it would entail with family yesterday. If continues to feel well possibly home tomorrow with close CHF follow-up. Likely on daily torsemide. Appreciate hospital medicine care. Will continue to follow. Admission and Anticipated Discharge Date Admission Date: January 28, 2025 Subjective Feeling better today. Sitting up on edge of bed. Denies significant shortness of breath. No chest pain. No palpitations. Telemetry reviewedremains in atrial fibrillation, no significant events. I/O-150, weight up 2 pounds Physical Exam Physical Exam: General: Comfortable HEENT: Sclerae anicteric Lungs: Lungs clear Cardiac: Irregular irregular, normal rate, 3 of 6 systolic ejection murmur, mid peaking. Holosystolic murmur at right lower sternal border. No JVD Vascular: 2+ radial pulses. Palpable DP pulses bilaterally Abdomen: Soft, nontender Extremities: Well perfused, trace right greater than left lower extremity edema, minimal hyperpigmentation Neuro: Nonfocal Psych: Alert orient x3, normal affect and mood Results & Data Vital Signs (Past 12 Hours) Vital Signs Temp Pulse Pulse Resp BP Pulse Ox O2 Del Method 01/28/25 15:46 97.7 F 67 24 113/73 92 Nasal Cannula 01/28/25 09:10 Nasal Cannula 01/28/25 08:50 87 107/69 01/28/25 07:45 97.3 F L 81 20 99/63 L 98 Nasal Cannula 01/28/25 05:41 79 O2 Flow Rate 01/28/25 15:46 01/28/25 09:10 2 01/28/25 08:50 01/28/25 07:45 01/28/25 05:41 PG Care Time/CCT Total # of Minutes Spent Total Time Spent with Patient: Total time spent is greater than 50% in coordination of care (as documented) at patient's floor/unit and/or counseling patient: Coding Level of Care Code 85679 SUB INP/OBS CARE 2/35MIN Diagnoses Chronic heart failure with preserved ejection fraction I50.32 Heart failure chronicity: chronic (1) (HFpEF) heart failure with preserved ejection fraction Heart failure chronicity: chronic Qualified Code(s): I50.32 - Chronic diastolic (congestive) heart failure
[2025-01-29 07:36] VITALS: TEMP 97.5
[2025-01-29 07:56] LABS: Hematocrit (blood only) 35.2 % (42.0-52.0); Hemoglobin 10.8 g/dL (14.0-18.0); Mean Corpuscular Hemoglobin 26.8 pg (25.0-34.0); Mean Corpuscular Volume 87.3 fL (80.0-100.0); Platelet Count 164 K/uL (130-400); RDW Standard Deviation 57.0 fL (36.4-46.3); Red Blood Count 4.03 M/uL (4.70-6.10); White Blood Count 14.94 K/ul (4.8-10.8)
[2025-01-29 08:17] LABS: Anion Gap 8.0 (3-11); Blood Urea Nitrogen 33.0 mg/dl (6-23); Calcium 8.8 mg/dl (8.6-10.3); Carbon Dioxide 28.0 mmol/L (21-32); Chloride 104.0 mmol/L (98-107); Creatinine Clr Calc Pharmacy 38.8 ml/min; Glucose 104.0 mg/dl (70-99(Fasting)); Potassium 4.2 mmol/L (3.5-5.1); Sodium 140.0 mmol/L (136-145)
--- NOTE | 2025-01-29 09:34 | Cardiology Progress Note ---
Date of Service January 29, 2025 Assessment & Plan (1) (HFpEF) heart failure with preserved ejection fraction: Plan: EF 55%. Torsemide 20mg 3x/week; SGLT2/MRA 2. 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 Permanent AF Failed amiodarone/cardioversion 10/2023 Rate controlled, BB/digoxin. [id number] 5, Eliquis 4. Severe pulmonary hypertension Who group II/III. Mixed pre-/postcapillary. Cath 03/2024 RA 18, PA 68/33(47), LVEDP 21, PVR 5.4 PURCELL Severe RV dilation echo 10/2023 Dsypnea class II-III, 6MWT 208 m 5. Moderate ASpullback gradient 27 mmHg 6. Severe DOREEN/nocturnal hypoxemiafollowed by Dr. Pittman, on CPAP 7. Emphysemamild to moderate restrictive PFTs 03/2024 8. Mildly dilated aortic root/ascending aorta--4.3 cm echo 10/2023, CT 07/2024 9. Anemia--Hb 11.8 10. Dyslipidemia--atorva 40 11. Right lower extremity gout versus cellulitis 12. Mild HOSEA Looks well this morning, walking without oxygen, appears near baseline. Weight down almost 7 pounds Renal function stable Weight still not back to prior baseline but congestion improved. From a cardiac standpoint okay with discharge to home today with close CHF clinic follow-up Will give additional dose of IV Lasix this morning Resume home torsemide tomorrow and would change to daily for now Continue current Jardiance, okay to resume spironolactone Continue current digoxin and Eliquis. Toprol XL on hold (HRs reasonable). Continue current statin Long-term with progression in may need to consider TAVR eval at some point Appreciate hospital medicine care. Admission and Anticipated Discharge Date Admission Date: January 28, 2025 Subjective Reports feeling fine today. Up walking around the room, planning to go walk laps in the halls. Denies significant shortness of breath. No chest pain. No palpitations. Reports improved scrotal edema. Telemetry reviewedno longer on telemetry I/O-400 yesterday, weight down almost 7 pounds. Review of Systems Review of Systems: All systems reviewed & are unremarkable except as noted in Subjective Physical Exam Physical Exam: General: Comfortable HEENT: Sclerae anicteric Lungs: Lungs clear Cardiac: Irregular irregular, normal rate, 3 of 6 systolic ejection murmur, mid peaking. Holosystolic murmur at right lower sternal border. No JVD Vascular: 2+ radial pulses. Palpable DP pulses bilaterally Abdomen: Soft, nontender Extremities: Well perfused, trace right greater than left lower extremity edema, minimal hyperpigmentation Neuro: Nonfocal Psych: Alert orient x3, normal affect and mood Results & Data Vital Signs (Past 12 Hours) Vital Signs Temp Pulse Resp BP Pulse Ox O2 Del Method O2 Flow Rate 01/29/25 07:31 97.5 F L 78 12 95/62 L 92 Nasal Cannula 01/28/25 23:16 97.3 F L 79 20 101/67 91 Nasal Cannula 2 PG Care Time/CCT Total # of Minutes Spent Total Time Spent with Patient: Total time spent is greater than 50% in coordination of care (as documented) at patient's floor/unit and/or counseling patient: Coding Level of Care Code 78259 SUB INP/OBS CARE 2/35MIN Diagnoses Chronic heart failure with preserved ejection fraction I50.32 Heart failure chronicity: chronic (1) (HFpEF) heart failure with preserved ejection fraction Heart failure chronicity: chronic Qualified Code(s): I50.32 - Chronic diastolic (congestive) heart failure
[2025-01-29] MEDS: METOPROLOL SUCC 50MG EXT REL TAB PO SCH (09:43)
[2025-01-29] MEDS: FUROSEMIDE 40 MG/4 ML VIAL IV ONE (09:49)
--- NOTE | 2025-01-29 10:04 | Discharge Summary ---
Date of Service January 29, 2025 Admission HPI Per Admitting Provider patient is a very pleasant 89-year-old who presents with a chief complaint of "full of fluid"whenever asked him what symptoms he was feeling that made him feel like he was full of fluid, he initially repeated that he was full of fluid. Whenever asked to clarify what made him come to the ER he smiled and said "my ". He denies any new shortness of breath, but does note that he has chronic shortness of breath related to his pulmonary hypertension so he would not really notice anything new or different unless it was extreme. He does note that his abdomen has filled up with fluid and is more bloated. He also notes his legs are more swollen. He is up a good deal of weight. Yesterday he had a ham sandwich, nachos, and salted cashews. Admission Exam Per Admitting Provider In general he is awake alert oriented pleasant no distress. HEENT normocephalic atraumatic mucous membranes moist. Cardio is regular but distant. Lungs show bibasilar rales. Abdomen is bloated and mildly distended. Extremities show bilateral lower extremity roughly 2+ edema no calf tenderness. Principal Diagnosis acute on chronic diastolic heart failure Discharge Exam Vital signs reviewed. General: Well-appearing, in no significant distress. HEENT: No scleral icterus, PERRLA, neck supple. Atraumatic. Cardiovascular: Regular rate, irregular rhythm. murmur appreciated Pulmonary: Clear to auscultation bilaterally, normal work of breathing. 2L NC in place Abdomen: improved abdominal distension w/o tenderness, rebound or guarding. Musculoskeletal: BL pitting edema R>L lower extremities. W/o erythema, warmth or tenderness Neurologic: Patient awake alert and oriented. Moving all extremities spontaneously. CN II-XII grossly intact. Skin: Warm, dry, no rash Discharge Data Allergies Allergy/AdvReac Type Severity Reaction Status Date / Time TISHA Inhibitors AdvReac Mild COUGH Verified 10/29/24 17:40 Consultations 01/26/25 16:09 ED Decision to Admit Stat 01/27/25 14:02 Consult Cardiology Routine Hospital Course (1) Acute HF (heart failure): (2) Cellulitis of right leg: (3) CAD (coronary artery disease): (4) (HFpEF) heart failure with preserved ejection fraction: (5) Acute heart failure with preserved ejection fraction: Plan Patient is an 89 y/o M PMHx h/o gout, osteomyelitis, COPD, CAD, Chronic HFpEF, pulmonary HTN, atrial fibrillation on Eliquis , HTN , HLD who is admitted for acute on chronic HF likely in the setting of increased salt intake. acute on chronic HFpEF - more euvolemic on exam on exam this morning. Lungs CTA BL. Abdominal distension improved from yesterday and with slightly improved from BL pitting edema lower extremities R>L. - CXR with cardiomegaly and emphysema with evidence of congestive failure and pulmonary edema. BNP 1643 on admission - echo completed: EF 55-60% with flatten septum consistent with RV pressure overload ; severely dilated RV with mildly reduced function ; severe aortic stenosis, mild MR ; severe pulmonary HTN, estimated PASTP 65-70mmHg ; dilated aortic root (4.2cm) - electrolytes, Mg wnl this morning. Cr improved to 1.32 (was 1.42 yesterday) - was diuresed with furosemide 40mg IV daily - he is on torsemide 20mg po at home - hold - continue Jardiance 10mg po qAM - cardiology consulted and appreciate their recommendations. Will have close CHF follow-up on discharge. - will repeat BMP in 1 week - encouraged close PCP follow-up within 1 week of discharge - continue home sodium restriction and daily weights atrial fibrillation RVR - currently rate controlled, cardiac monitoring overnight w/o actionable events HR 80s - continue Eliquis 5mg po bid - resume metoprolol 50mg po qAM, digoxin 0.125mg po daily, and Eliquis 5mg po bid. elevated troponin - 23.1 on admission, repeat 2hr 22.2 - likely demand mediated given acute CHF exacerbation as above CAD - continue atorvastatin 40mg po severe aortic stenosis - repeat echo as above ; there is progression of his aortic stenosis demonstrated on recent echo when compared to previous - now low-flow, low gradient severe . - consider TAVR evaluation with cardiology in outpatient setting. pulmonary HTN - following with cardiology outpatient DVT prophylaxis: eliquis as above Dispo: home discharge today Total Time Total Time Spent Total Time Spent (In Minutes): <30 Discharge Plan Discharge Items Patient Disposition: Home - Self-Care Reason For Visit: CHF Discharge Diagnosis: acute on chronic diastolic CHF Condition on Discharge: Fair Activity: Resume your previous activity Non-emergency contact: Primary Care Provider Call non-emergency contact if: you have any medication questions and your symptoms worsen Follow-up/Referrals: Christopher Kim MD [Physician] - El Calabrese MD [Primary Care Provider] - (Date & Time 02/03/2025 11:00 AM Provider: Mellissa Penn MD General Internal Medicine [facility] ) Diet: Heart Healthy and Low Sodium (2gm) Ambulatory Orders: Basic Metabolic Panel (Routine) Timeframe: 1 Week Location: Determined by Patient Ordered By: Radha Whiteside Complete Blood Count no Diff (Routine) Timeframe: 1 Week Location: Determined by Patient Ordered By: Radha Whiteside Addtl Attending Provider Instructions: You were admitted to [facility] for treatment of acute heart failure. During admission, you were treated with IV furosemide to help with removing fluid from your lungs. You acute left-sided heart failure has resolved in this setting. Your right-sided heart failure is also stable at this point. We will increase your home diuretics to torsemide 20mg by mouth daily instead of every other day. To help remove the extra fluid from your legs, please continue to ambulate frequently throughout the day, as muscle contraction will help mobilize that fluid. You can also use marathon compression socks to help with compression and swelling in your legs. On discharge, we would like to repeat a basic metabolic panel within 1 week. Please also follow-up with your PCP and Dr. Kim closely and within 1 week from discharge. Please also monitor your blood pressure daily at home to make sure it is not going below <90/60. Please also monitor your weight daily. Medications: NEW: torsemide 20mg by mouth daily metoprolol succinate 50mg by mouth daily in the morning Congestive Heart Failure: Discharge Instructions Congestive Heart Failure ؠ Congestive Heart Failure essentially means your heart is able to have a "traffic jam" of fluid that backs up into your lungs. ؠ Fluid in lungs, blocks up breathing space making you feel short of breath. ؠ In the hospital, our job is to get the fluid off so that you are able to breathe better, and then get you back on track with medication and lifestyle adjustments to keep the traffic jam from happening again. Salt (Sodium) ؠ About 90% of people admitted to the hospital with fluid back up into the lungs get there because of too much salt in their diet. ؠ The way our kidneys work: when you take a small amount of sodium, your kidneys hold onto a small amount of water. When you take a large amount of sodium, your kidneys hold onto a large amount of water. When this happens, your blood vessels get flooded, your heart gets overfilled, and the fluid backs up into your lungs. ؠ Most people know to avoid the salt shaker, but sodium is in almost anything prepackaged/prepared, as a preservative or as a flavoring agent. Most of the people we take care of who are here from fluid getting backed up, because of too much sodium do not use a salt shaker at all. ؠ Get into the habit of looking at food labels, so you can see how much sodium is in the foods you eat. The most important number to look at is how much sodium is in each serving. But also notice the size of a serving. Food companie s will frequently make a serving size so tiny that it does not look like there is much sodium per serving, but a normal person might eat 3 or 4 servings of the food and take in a lot more sodium. ؠ Keep a "budget" of how much sodium you take in in each day. Most people stay out of trouble and stay out of the hospital as long as they stay "under budget". ؠ Majority of congestive heart failure patients do well if they take less than 2000 mg of sodium a day. Because our kidneys retain water based on how much sodium they are seeing in any given moment, it is also important to stay at less than about 500 mg in any given meal. This is because even if you stayed at less than 2000 mg of sodium, but ate it all at once, your kidneys would retain fluid at a rate as though you are taking in much more sodium than you actually are. Following How You Are Doing (Wet Versus Dry) Because managing congestive heart failure is an ongoing process, it is very important to learn how to follow your signs and symptoms and track how you are doing at home. This will allow you to catch problems before they become a big deal. In general, as your health care team, we look at managing congestive heart failure chronically as a balance of being "wet" (flooded with fluid) versus being "dry" (dehydrated from treatment). Wet - signs of fluid retention that would warrant further evaluation: ؠ Check your weight daily. If your weight goes up by more than 2 pounds in 1 day, it is almost certainly fluid related. This should warrant further thought, and/or a call to your doctor ؠ Follow your breathingmost of the time, early on when fluid backs up into your lungs, you will first start to notice shortness of breath when walking, or when lying flat. If you notice either of these, this should warrant further thought, and/or a call to your doctor ؠ If you notice both an increase in weight and worsening breathing, that definitely warrants getting seen as soon as possible "Dry"while managing the disease our goal is to keep you from getting "wet"; however, the medications can sometimes cause a degree of dehydration. ؠ Most people with congestive heart failure need frequent lab work (basic metabolic panel). Generally when there has been a change in diuretic dosing (a change in the water pill) or any other major changes, lab work should be followed closely and more frequently afterwards. This is because lab work will frequently show early signs of dehydration before you start to feel bad. ؠ Frequent symptoms of being dehydrated include: feeling weak and lightheaded, having lower blood pressures, making less urine than usual, or having a very dry mouth. If you notice any of these signs/symptoms, and you are not due for lab work, it would be quite reasonable to call your doctor to see if lab work or a visit could be arranged. Heart Failure Management Checklist * Limit Salt (Sodium) Intake to 2000mg (2g) per day and 500mg (0.5g) per meal * Check weight daily (in same clothes, without shoes) every morning * Use the provided chart to enter your weight and salt intake for the day Are you too wet? * If you gained 2lb or more - make sure to take your water pill * If your breathing is not good (you are more short of breath than usual) call your doctor regardless of weight change * If you gained 2lb or more and you are short of breath, see your doctor or come to the emergency room Are you too dry? * If you fee weak or lightheaded, have lower blood pressures, make less urine than usual, or have a very dry mouth. Call your doctor Pending Studies at Discharge: No Stand-Alone Forms: [employer], Smoking Cessation Medications and DC Order Prescriptions: New metoprolol succinate 50 mg Tablet Extended Release 24 Hr 50 mg PO DAILY 30 Days Qty: 30 0RF Continued Jardiance 10 mg tablet 10 mg PO QAM Qty: 90 3RF digoxin 125 mcg (0.125 mg) tablet 125 mcg PO 3XWK Rx Instructions: Sunday//Sunday mecobalamin (vitamin B12) 1,000 mcg tablet,disintegrating 1,000 mcg sublingual DAILY Patient Comments: Rx Instructions: place tablet under tongue and allow to dissolve for at least30 secs before swallowing umeclidinium-vilanterol [Anoro Ellipta] 62.5-25 mcg/actuation blister with device 1 inh inhalation QAM atorvastatin [Lipitor] 40 mg Tablet 40 mg PO HS apixaban 5 mg tablet 5 mg PO BID Qty: 60 0RF lidocaine 5 % adhesive patch,medicated 1 patch TOP DAILY PRN (Reason: pain) Qty: 15 0RF Rx Instructions: leave on most painful area for 12 hrs allopurinol 300 mg tablet 300 mg PO QAM PreserVision AREDS-2 250-90-40-1 mg Capsule 1 tab PO BID Patient Comments: spironolactone 25 mg tablet 12.5 mg PO QAM Probiotic 15 billion cell capsule, sprinkle 1 cap PO DAILY Qty: 30 0RF Patient Comments: Rx Instructions: do not crush/chew/cut; swallow whole OR may open and sprinkle in cold drink/food colchicine 0.6 mg capsule 0.6 mg PO DAILY PRN (Reason: Other) Rx Instructions: taking PRN as needed - see instructions Changed torsemide 20 mg tablet 20 mg PO DAILY 30 Days Qty: 0 0RF Rx Instructions: Take 1 tab every other day (4x/week) Discontinued cefadroxil 500 mg capsule 500 mg PO BID 7 Days Qty: 14 0RF Rx Instructions: X 7 days Discharge Orders: Discharge Order (Routine); Ordered 01/29/25 Ordered By: Radha Whiteside Admission Data Admit Date/Time: 01/28/25 09:11 Attending Provider: Armen Erickson Admit Provider: Armen Erickson Primary Care Provider: El Calabrese Other Providers: Armen Erickson; Christopher Kim Supervising Physician Co-Signing Physician Notes I personally examined the patient and verified all ruiz points of history and exam, discussed case, and agree with decision making with Dr Whiteside Feeling better overall. Feels up to going home. Vitals noted, in general he is awake and alert pleasant no distress. HEENT normocephalic atraumatic mucous membranes moist. Breathing unlabored no accessory muscle use good effort. Walks with steady gait and no dyspnea. No focal neurodeficits. Acute HFpEF/combined acute on chronic diastolic and right-sided CHF along with severe pulmonary hypertension - lungs have clearedleft-sided failure appears to have improved - have had extensive discussion with patient and family on the difficulties in diuresing fluid overload when it is now predominantly right-sided CHF and the risks that this entails And he has done surprisingly well. With this in mind, at least for a short time, we will have him take his torsemide daily at home instead of every other daybut discussed that we will definitely want daily blood pressure monitoring and close follow-up as basic metabolic panel with anticipation of reducing the torsemide to every other day in the near future, either once he is back to totally dry, or when/if we see any significant bump in his creatinine with close follow-up. Discussed that self management with ambulation, compression, and elevation are all as critical - appreciate cardiology input - discussed sodium restriction again. anticoagulated otherwise as above Resident Activity Tracking Resident Involvement: Resident Care Provided Care Provided: Adult Hospital Medicine
[2025-01-29 12:35] VITALS: PULSE 82; RESP 16; O2SAT 94
--- NOTE | 2025-01-29 12:57 | Billing Data ---
Date of Service January 29, 2025 Coding Level of Care Code 48602 IN/OBS DISCH 30 MIN/LESS
[2025-01-29 13:26] VITALS: BP 95/62
== END 2025-01-29 14:18 | disposition home health service (06) | DRG 291 ==
LOC: EDINP 12:25 → ED 12:25 → EDINP 22:48 → 2N 01-27 01:08

== ENCOUNTER 2025-02-27 13:34 | Inpatient (IN) ==
--- NOTE | 2025-02-27 13:53 | Emergency Department Note ---
Impression & Plan Hematuria, Anemia ED Provider Note ED Provider Note NAME: ISMAEL MEHTA AGE:89 SEX: Male : 1935 ARRIVES VIA: POV INFORMANT: Patient ED PROVIDER(s): Starla Dominguez CHIEF COMPLAINT: hematuria HPI: 89-year-old male presents emergency room with complaints of bleeding from his penis. He states that he had a cystoscopy this morning and now he just has blood coming out. He states he has a history of radiation to his prostate. States that he was told he might have some bleeding, but with the continued bleeding, he was told to come to the emergency room for evaluation. 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 PAST MEDICAL HISTORY:See Below PAST SURGICAL HISTORY:See Below FAMILY HISTORY:See Below SOCIAL HISTORY:See Below HOME MEDICATIONS:See Below ALLERGIES:See Below VITALS:See Below PHYSICAL EXAMINATION: GENERAL: alert, well appearing, well nourished, no distress, non-toxic EYE EXAM: normal conjunctiva, PERRL and EOM's grossly intact OROPHARYNX: no exudate, no erythema, lips, buccal mucosa, and tongue normal and mucous membranes are moist NECK: supple, no nuchal rigidity, no adenopathy, non-tender LUNGS: Clear to auscultation. Normal chest wall mechanics, no w/r/r HEART: no murmurs, S1 normal and S2 normal ABDOMEN: abdomen soft, non-tender, normo-active bowel sounds, no masses, no rebound or guarding. BACK: Back is symmetrical on inspection and there is no deformity, no midline tenderness, no CVA tenderness. SKIN: no rashes, petechiae, orbruising UPPER EXTREMITIES: upper extremities are grossly normal. FROM, nml pulses b/l. LOWER EXTREMITIES: No pitting edema. FROM, nml pulses b/l. NEURO EXAM: Normal sensorium, cranial nerves II-XII grossly intact, normal speech, no facial droop,nogross weakness of arms, no gross weakness of legs. Gross sensation intact. No ataxia. Vital Signs: reviewed and remarkable Differential Diagnosis: Bladder trauma, UTI, radiation cystitis with bleeding. MEDICAL DECISION MAKIN-year-old male presents emergency room with complaints of hematuria. Nursing and myself unable to place a Ji in the emergency room. I was able to get a small red rubber 16 catheter in to drain his bladder initially. There was copious bleeding and clots at the penis prior to any sort of manipulation. Patient did have significant urinary retention initially, after draining of his bladder, he had a lot of relief. He then started having incontinence with large episodes of bloody urine. Patient then had just minal bleeding from his penis, almost a liter and a half in the urinal. Patient himself is agreeable to admission to the hospital. Spoke with urology, asked that we admit to the hospitalist. Consultation(s): Urology, hospitalist ER Treatment Provided: See below Diagnostics Interpreted By Me: -Laboratory studies: As stated above and show below. Triage Nursing Note Reviewed Prior/Outside Records Reviewed Past Med/Surg History Problem List (Updated 02/27/25 @ 18:53 by Anel Dominguez DO) Hematuria (Acute) Radiation cystitis Anemia (Acute) History of pericardial effusion History of prostate cancer Gross hematuria (Acute) Anticoagulant long-term use (Acute) Hematuria (Acute) Leukocytosis, unspecified Bilateral edema of lower extremity (Acute) Cellulitis of leg, right (Acute) Acute gout Toe pain, right (Acute) Infected abrasion of second toe of right foot (Acute) Osteomyelitis (Acute) Chronic tophaceous gout of right foot Toe infection Complex sleep apnea syndrome Emphysema lung Witnessed episode of apnea Nocturnal hypoxemia CAD (coronary artery disease) (HFpEF) heart failure with preserved ejection fraction (Acute) SOBOE (shortness of breath on exertion) Right ventricular dysfunction Pulmonary HTN Atrial flutter with rapid ventricular response Acute heart failure with preserved ejection fraction Acute HF (heart failure) (Acute) Atrial fibrillation with RVR (Acute) Encounter for pre-operative examination Encounter for pre-operative examination White blood cell abnormality Atrial fibrillation Community acquired pneumonia Encounter for pre-operative examination 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 Weaver On anticoagulant therapy eliquis bid Food impaction of esophagus History of pneumonia AROUND TIME OF AFIB, ? SPRING 2020 "SHOULD BE IN MY RECORDS" Moderate aortic stenosis Bicuspid aortic valve Chronic ischemic heart disease Paroxysmal atrial fibrillation with rapid ventricular response Atrial fibrillation with rapid ventricular response ? SPRING 2020 "SHOULD BE IN MY RECORDS" NO HX CARDIOVERSION, POSSIBLE CAUSE PNEUMONIA PER PT Osteoarthritis Prostate cancer 5 yrs ago > radiation Myocardial Infarction 1993 > RCA > Atenolol and Lipitor for this Dyslipidemia Surgical History History of left cataract extraction (~03/28/21) History of esophagogastroduodenoscopy (EGD) last 06/14/[address] [facility] for food bolus History of right cataract extraction History of cardiac cath X3 TOTAL 1993 NO STENT(S) , 1998 CATH DID NOT CONSENT FOR STENT...SECOND CATH IN 1998 STENT X1 History of colonoscopy History of tooth extraction History of total knee replacement left H/O heart artery stent 1998 > x1 > follows with Dr. Weaver Family History Brother Colon cancer Other No family history of adverse response to anesthesia Social History Smoking Status: Never smoker Tobacco Type: Cigarettes Cigarettes Per Day: 2 PPD / Quit 50 years ago; Second Hand Exposure: No; Do You Dip or Chew Tobacco: No; Hx Alcohol Use: Yes Alcohol type: hard liquor Hx Substance Use: No Preferred Language: Occitan Communication Ability: Effective Cash Applications Clerk Required: No Beliefs That Will Affect Care: None Current Living Situation: Spouse Current Living Situation Comment: House with Spouse Feels Safe at Home: Yes Assistive Devices: CPAP and Oxygen - Continuous Allergies Allergies Allergy/AdvReac Type Severity Reaction Status Date / Time TISHA Inhibitors AdvReac Mild COUGH Verified 02/20/25 08:09 Home Meds Home Medications Medication Instructions Recorded Confirmed atorvastatin 40 mg tablet (Lipitor) 40 mg PO HS 06/18/20 02/27/25 mecobalamin (vitamin B12) 1,000 1,000 mcg sublingual DAILY 03/20/24 02/27/25 mcg disintegrating tablet,sublingual digoxin 125 mcg (0.125 mg) tablet 125 mcg PO 3XWK 03/31/24 02/27/25 umeclidinium 62.5 mcg-vilanterol 1 inh inhalation QAM 08/26/24 02/27/25 25 mcg/actuation powdr for inhalation (Anoro Ellipta) spironolactone 25 mg tablet 12.5 mg PO QAM 10/29/24 02/27/25 vit C 250 mg-vit E 90 mg-zinc 40 1 tab PO BID 10/29/24 02/27/25 mg-copper 1 [id number] capsule (PreserVision AREDS-2) allopurinol 300 mg tablet 0 mg PO QAM 01/26/25 02/27/25 lactobacillus combo no.11 15 2 cap PO DAILY 02/17/25 02/27/25 billion cell sprinkle capsule (Probiotic) torsemide 20 mg tablet 20 mg PO UD 02/27/25 02/27/25 Previous Rx's Medication Instructions Recorded apixaban 5 mg tablet 5 mg PO BID #60 tabs 06/30/20 empagliflozin 10 mg tablet 10 mg PO QAM #90 tabs 11/18/24 (Jardiance) metoprolol succinate 50 mg 50 mg PO DAILY 30 days #30 tabs 01/29/25 tablet,extended release 24 hr Results & Data (ED) Vital Signs Vital Signs - 24 hr 02/27/25 13:34 02/27/25 13:44 02/27/25 16:59 Temperature 36.8 C Temperature Source Temporal Artery Scan Pulse Rate 110 H Pulse Rate [Apical] 88 Respiratory Rate 17 17 Respiratory Effort / Characteristics Non-Labored Spontaneous Respiratory Depth Normal Blood Pressure 103/71 Blood Pressure [Right Arm] 92/60 L Blood Pressure Mean 81 Blood Pressure Mean [Right Arm] 70 Pulse Oximetry 96 97 97 Oxygen Delivery Method Room Air Room Air Room Air Sepsis Recent Fever Within 48 Hours No Sepsis New/Unexplained Change in Mental Status No Sepsis Action Taken by Nursing No Action Required Laboratory Data 02/27/25 14:17 02/27/25 14:17 Lab Results 02/27/25 02/27/25 Range/Units 14:17 15:24 WBC 8.96 (4.8-10.8) K/ul RBC 3.81 L (4.70-6.10) M/uL Hgb 10.5 L (14.0-18.0) g/dL Hct 33.1 L (42.0-52.0) % MCV 86.9 (80.0-100.0) fL MCH 27.6 (25.0-34.0) pg MCHC 31.7 L (32.0-36.0) g/dL RDW Std Deviation 56.9 H (36.4-46.3) fL RDW Coeff of [place] 18.2 H (11.5-14.5) % Plt Count 140 (130-400) K/uL MPV 9.2 L (9.4-12.4) fL Immature Gran % (Auto) 0.4 % Neut % (Auto) 37.5 % Lymph % (Auto) 57.1 % [place] % (Auto) 4.5 % Eos % (Auto) 0.2 % Baso % (Auto) 0.3 % Neut # (Auto) 3.35 (1.40-6.50) K/uL Lymph # (Auto) 5.12 H (1.20-3.40) K/uL Dixon # (Auto) 0.40 (0.11-0.59) K/uL Eos # (Auto) 0.02 (0.00-0.50) K/uL Baso # (Auto) 0.03 (0.00-0.20) K/uL Immature Gran # (Auto) 0.04 (0.01-0.20) K/uL Polychromasia 1+ Tear Drop Cells 1+ Sodium 135 L (136-145) mmol/L Potassium 4.6 (3.5-5.1) mmol/L Chloride 99 (98-107) mmol/L Carbon Dioxide 25 (21-32) mmol/L Anion Gap 11 (3-11) BUN 32 H (6-23) mg/dl Creatinine 1.32 (0.6-1.4) mg/dl Est Cr Clr Drug Dosing 37.8 ml/min eGFR 51.88 BUN/Creatinine Ratio 24.2 H (10-20) Glucose 103 H (70-99(Fasting)) mg/dl Calcium 9.0 (8.6-10.3) mg/dl Total Bilirubin 1.8 H (0.2-1.0) mg/dl AST 21 (13-39) U/L ALT 11 (7-52) U/L Alkaline Phosphatase 180 H (34-104) U/L Total Protein 6.6 (6.0-8.3) gm/dl Albumin 4.3 (3.4-5.0) gm/dl Globulin 2.3 L (2.5-4.0) gm/dl Albumin/Globulin Ratio 1.9 (0.9-2) Urine Color Red Urine Appearance Clear (Clear) Urine pH 7.5 (4.5-7.5) Ur Specific [place] 1.009 (1.000-1.030) Urine Protein 1+ H (Negative) Urine Glucose (UA) Trace H (Negative) Urine Ketones Negative (Negative) Urine Blood 3+ H (Negative) Urine Nitrite Negative (Negative) Urine Bilirubin Negative (Negative) Urine Urobilinogen Negative (Negative) Ur Leukocyte Esterase Trace H (Negative) Urine WBC (Auto) 6-10 H (0-5) /hpf Urine RBC (Auto) >20 H (0-2) /hpf U Hyaline Cast (Auto) 0-2 (0-2) /lpf U Epithel Cells (Auto) 0-2 (0-2) /hpf Urine Bacteria (Auto) None Seen (None Seen) Urine Comment Administered Medications Discontinued Medications Lidocaine HCl (Lidocaine 2% Jelly 5 Ml Tube) 5 ml EXT NOW ONE Stop: 02/27/25 14:56 Last Admin: 02/27/25 15:00 Dose: 5 ml Documented By: Discharge Plan Visit Data Chief Complaint: Bleeding Stated Complaint: DRIPPING BLOOD FROM AN ENSOSCOPY, ED Provider: Anel Dominguez Discharge Problem: Hematuria, Anemia Patient Disposition: Admitted As Inpatient Condition: Fair Forms Stand Alone Forms: [facility] Prescriptions Prescriptions: No Action Jardiance 10 mg tablet 10 mg PO QAM Qty: 90 3RF digoxin 125 mcg (0.125 mg) tablet 125 mcg PO 3XWK Rx Instructions: Sunday//Sunday mecobalamin (vitamin B12) 1,000 mcg tablet,disintegrating 1,000 mcg sublingual DAILY Patient Comments: 02/26- otc unable to verify Rx Instructions: place tablet under tongue and allow to dissolve for at least30 secs before swallowing umeclidinium-vilanterol [Anoro Ellipta] 62.5-25 mcg/actuation blister with device 1 inh inhalation QAM Probiotic 15 billion cell capsule, sprinkle 2 cap PO DAILY Patient Comments: 02/26- otc unable to verify Rx Instructions: do not crush/chew/cut; swallow whole OR may open and sprinkle in cold drink/food atorvastatin [Lipitor] 40 mg Tablet 40 mg PO HS apixaban 5 mg tablet 5 mg PO BID Qty: 60 0RF allopurinol 300 mg tablet 0 mg PO QAM Patient Comments: 02/27-last filled 12/19 30 day supply #30 metoprolol succinate 50 mg Tablet Extended Release 24 Hr 50 mg PO DAILY 30 Days Qty: 30 0RF PreserVision AREDS-2 250-90-40-1 mg Capsule 1 tab PO BID Patient Comments: 02/26- otc unable to verify spironolactone 25 mg tablet 12.5 mg PO QAM torsemide 20 mg tablet 20 mg PO UD Rx Instructions: May increase to daily as needed for weight gain, shortness of breath, edema. Referrals Referrals: El Calabrese MD [Primary Care Provider] -
[2025-02-27 14:32] LABS: Hematocrit (blood only) 33.1 % (42.0-52.0); Hemoglobin 10.5 g/dL (14.0-18.0); Mean Corpuscular Hemoglobin 27.6 pg (25.0-34.0); Mean Corpuscular Volume 86.9 fL (80.0-100.0); Platelet Count 140 K/uL (130-400); RDW Standard Deviation 56.9 fL (36.4-46.3); Red Blood Count 3.81 M/uL (4.70-6.10); White Blood Count 8.96 K/ul (4.8-10.8)
[2025-02-27 14:48] LABS: Alanine Aminotransferase 11.0 U/L (7-52); Albumin Globulin Ratio 1.9 (0.9-2); Albumin Level 4.3 gm/dl (3.4-5.0); Alkaline Phosphatase 180.0 U/L (34-104); Anion Gap 11.0 (3-11); Bilirubin,Total 1.8 mg/dl (0.2-1.0); Blood Urea Nitrogen 32.0 mg/dl (6-23); Calcium 9.0 mg/dl (8.6-10.3); Carbon Dioxide 25.0 mmol/L (21-32); Chloride 99.0 mmol/L (98-107); Creatinine Clr Calc Pharmacy 37.8 ml/min; Globulin 2.3 gm/dl (2.5-4.0); Glucose 103.0 mg/dl (70-99(Fasting)); Potassium 4.6 mmol/L (3.5-5.1); Sodium 135.0 mmol/L (136-145); Total Protein 6.6 gm/dl (6.0-8.3)
[2025-02-27] MEDS: LIDOCAINE 2% JELLY 5 ML TUBE EXT ONE (15:00)
[2025-02-27 15:18] LABS: Immature Granulocytes # (auto) 0.04 K/uL (0.01-0.20); Immature Granulocytes % (auto) 0.4 %; Polychromasia 1+; Tear Drop Cells 1+
[2025-02-27 15:45] LABS: Appearance Urine Clear (Clear); Bacteria Urine Automated None Seen (None Seen); Cast Urine Automated 0-2 /lpf (0-2); Epithelial Cell Urine Auto 0-2 /hpf (0-2); Glucose Urine UA Trace (Negative); RBC Urine Automated >20 /hpf (0-2)
--- NOTE | 2025-02-27 18:43 | Urology Consultation ---
Date of Consultation February 27, 2025 Assessment & Plan (1) Gross hematuria: Afebrile HD stable 89M seen for management of gross hematuria and clots in setting radiation cystitis. Appears able to void spontaneously but with clots and pain. - recommend consultation internal medicine for admission due to age and complexity of comorbid conditions - will monitor urine and attempt to manage without catheter, placing catheter would likely irritate prostate and varicosities and cause more bleeding over lo ng term though this may be unavoidable if ceases to pass urine and clots - please hold eliquis - please start flomax to help with prostate obstruction - recommend continued hydration and home diuretic regimen to dilute urine no need to be NPO - urology to follow closely anticipated urine will clear up if we can avoid further manipulation but given age and overall frailty most safe course of action is inpatient monitoring - do recommend repeat AM labs to check HGB (2) Radiation cystitis: History of Present Illness Reason for Consultation: hematuria after cystoscopy showing radiation cystitis History of Present Illness 89M seen In ed after cystoscopy this AM for hematuria, noted to have prostatic and bladder varicosities c/w radiation cystitis as did have prostate cancer in past treated with radiation no urethral strictures tolerated 18fr scope without issue. Now presents to ED for gross hematuria, denied difficulty voiding states issue was purely that he was concerned by the bleeding thinks this may have happened due to his Eliquis and the cysto in setting of radiation. Denies pain at time of exam. Interestingly after he was examined by me appears he now complains of more difficulty urinating and pain with some passage of clots, bladder US with no clots and reasonably empty. Did have catheter placed initially in ED red rubber which drained bladder then this was removed and placement [address] catheter attempted unsuccessfully by ER team. Gen: NAD Psych: Alert and Oriented Abd: Nontender nondistended : deferred Allergies Allergy/AdvReac Type Severity Reaction Status Date / Time TISHA Inhibitors AdvReac Mild COUGH Verified 02/20/25 08:09 Home Medications Medication Instructions Recorded Confirmed Type atorvastatin 40 mg tablet (Lipitor) 40 mg PO HS 06/18/20 02/27/25 History apixaban 5 mg tablet 5 mg PO BID #60 tabs 06/30/20 02/27/25 Rx mecobalamin (vitamin B12) 1,000 1,000 mcg sublingual DAILY 03/20/24 02/27/25 History mcg disintegrating tablet,sublingual digoxin 125 mcg (0.125 mg) tablet 125 mcg PO 3XWK 03/31/24 02/27/25 History umeclidinium 62.5 mcg-vilanterol 1 inh inhalation QAM 08/26/24 02/27/25 History 25 mcg/actuation powdr for inhalation (Anoro Ellipta) spironolactone 25 mg tablet 12.5 mg PO QAM 10/29/24 02/27/25 History vit C 250 mg-vit E 90 mg-zinc 40 1 tab PO BID 10/29/24 02/27/25 History mg-copper 1 [id number]-krdawl capsule (PreserVision AREDS-2) empagliflozin 10 mg tablet 10 mg PO QAM #90 tabs 11/18/24 02/27/25 Rx (Jardiance) allopurinol 300 mg tablet 0 mg PO QAM 01/26/25 02/27/25 History metoprolol succinate 50 mg 50 mg PO DAILY 30 days #30 tabs 01/29/25 02/27/25 Rx tablet,extended release 24 hr lactobacillus combo no.11 15 2 cap PO DAILY 02/17/25 02/27/25 History billion cell sprinkle capsule (Probiotic) torsemide 20 mg tablet 20 mg PO UD 02/27/25 02/27/25 History Patient History Medical History Aortic stenosis gets echo every year to monitor > follows Dr. Weaver On anticoagulant therapy eliquis bid Food impaction of esophagus History of pneumonia AROUND TIME OF AFIB, ? SPRING 2020 "SHOULD BE IN MY RECORDS" Moderate aortic stenosis Bicuspid aortic valve Chronic ischemic heart disease Paroxysmal atrial fibrillation with rapid ventricular response Atrial fibrillation with rapid ventricular response ? SPRING 2020 "SHOULD BE IN MY RECORDS" NO HX CARDIOVERSION, POSSIBLE CAUSE PNEUMONIA PER PT Osteoarthritis Prostate cancer 5 yrs ago > radiation Myocardial Infarction 1993 > RCA > Atenolol and Lipitor for this Dyslipidemia Surgical History History of left cataract extraction (~03/28/21) History of esophagogastroduodenoscopy (EGD) last 06/14/21 @ [facility] for food bolus History of right cataract extraction History of cardiac cath X3 TOTAL 1993 NO STENT(S) , 1998 CATH DID NOT CONSENT FOR STENT...SECOND CATH IN 1998 STENT X1 History of colonoscopy History of tooth extraction History of total knee replacement left H/O heart artery stent 1998 > x1 > follows with Dr. Weaver Family History Brother Colon cancer Other No family history of adverse response to anesthesia Social History Smoking Status: Never smoker Tobacco Type: Cigarettes Cigarettes Per Day: 2 PPD / Quit 50 years ago; Second Hand Exposure: No; Do You Dip or Chew Tobacco: No; Hx Alcohol Use: Yes Alcohol type: hard liquor Hx Substance Use: No Preferred Language: Upper Sorbian Communication Ability: Effective Pest Control Supervisor Required: No Beliefs That Will Affect Care: None Current Living Situation: Spouse Current Living Situation Comment: House with Spouse Feels Safe at Home: Yes Assistive Devices: CPAP and Oxygen - Continuous Results & Data Vital Signs (Past 12 Hours) Vital Signs Temp Pulse Pulse Resp BP BP Pulse Ox 02/27/25 16:59 88 17 92/60 L 97 02/27/25 13:44 36.8 C 110 H 17 103/71 97 02/27/25 13:34 96 O2 Del Method 02/27/25 16:59 Room Air 02/27/25 13:44 Room Air 02/27/25 13:34 Room Air Laboratory Results hgb now 10.5 vs 9.9 recently
--- NOTE | 2025-02-27 19:35 | History & Physical Report ---
Date of Service February 27, 2025 Assessment & Plan (1) Hematuria: (2) Radiation cystitis: (3) History of prostate cancer: (4) Anticoagulant long-term use: Plan Patient is an 89-year-old male with a past medical history of prostate cancer s/p radiation 2014, HFpEF, A-fib on Eliquis, CAD, severe AAS, pulmonary hypertension. Patient has had gross hematuria in the outpatient setting pain and underwent cystoscopy 02/27. Upon returning home he had sudden onset gross hematuria and came into the ED for evaluation. ED staff unable to place Ji catheter and patient retaining urine, resolved with straight cath. Patient evaluated by urology who recommended holding Eliquis, starting Flomax, trending laboratories. #gross hematuria/radiation cystitis currently voiding spontaneously at time of admission. H&H stable, renal function WNL. UA without signs of infection. Urology consulted hold Eliquis, last dose in a.m. 02/27 Flomax started on admission, continue 0.4 mg every morning Promote oral hydration; will avoid IVF with history of HFpEF and severe aortic stenosis Bladder scan as needed Straight cath as needed Continue diuretics Tylenol as needed for pain Trend CBC and BMP #HFpEFstable, no acute exacerbation. Continue Jardiance, spironolactone, torsemide #A-fibholding anticoagulation as above. Continue metoprolol and digoxin. #CADcontinue statin VTE ppx: SCDs, low risk and holding Eliquis with hematuria Dispo: med surg, obs - possible dc 02/28 Admission and Anticipated Discharge Date Admission Date: 02/27/25 History of Present Illness Chief Complaint: bleeding Primary Care Provider: El Calabrese MD Patient is an 89-year-old male with a past medical history of prostate cancer s/p radiation 2014, HFpEF, A-fib on Eliquis, CAD, severe AAS, pulmonary hypertension. Patient has had gross hematuria in the outpatient setting pain and underwent cystoscopy 02/27. Upon returning home he had sudden onset gross hematuria and came into the ED for evaluation. ED staff unable to place Ji catheter and patient retaining urine, resolved with straight cath. Patient evaluated by urology who recommended holding Eliquis, starting Flomax, trending laboratories. Patient seen at bedside with his and daughter present. He stated he went home from his cystoscopy and was losing a lot of blood via his urine. He does endorse passing some clots. He denies any dizziness, lightheadedness, chest pain, shortness of breath, abdominal pain. He stated he does have some dysuria after the cystoscopy and catheter in the ED. He stated he had the cystoscopy because he had some hematuria previously which was resolved however he was still recommended for the scope given his history of prostate cancer and radiation. He stated that the scope looked okay and there was no concern. He denies nicotine use. He does endorse drinking 1 shot of liquor per day with dinner. He is due for his evening medications. He wishes to be full code. He is hopeful for discharge home in the morning if he remains stable. Allergies Allergy/AdvReac Type Severity Reaction Status Date / Time TISHA Inhibitors AdvReac Mild COUGH Verified 02/20/25 08:09 Home Medications Medication Instructions Recorded Confirmed Type atorvastatin 40 mg tablet (Lipitor) 40 mg PO HS 06/18/20 02/27/25 History apixaban 5 mg tablet 5 mg PO BID #60 tabs 06/30/20 02/27/25 Rx mecobalamin (vitamin B12) 1,000 1,000 mcg sublingual DAILY 03/20/24 02/27/25 History mcg disintegrating tablet,sublingual digoxin 125 mcg (0.125 mg) tablet 125 mcg PO 3XWK 03/31/24 02/27/25 History umeclidinium 62.5 mcg-vilanterol 1 inh inhalation QAM 08/26/24 02/27/25 History 25 mcg/actuation powdr for inhalation (Anoro Ellipta) spironolactone 25 mg tablet 12.5 mg PO QAM 10/29/24 02/27/25 History vit C 250 mg-vit E 90 mg-zinc 40 1 tab PO BID 10/29/24 02/27/25 History mg-copper 1 yu-vendsq-zlmowm capsule (PreserVision AREDS-2) empagliflozin 10 mg tablet 10 mg PO QAM #90 tabs 11/18/24 02/27/25 Rx (Jardiance) allopurinol 300 mg tablet 0 mg PO QAM 01/26/25 02/27/25 History metoprolol succinate 50 mg 50 mg PO DAILY 30 days #30 tabs 01/29/25 02/27/25 Rx tablet,extended release 24 hr lactobacillus combo no.11 15 2 cap PO DAILY 02/17/25 02/27/25 History billion cell sprinkle capsule (Probiotic) torsemide 20 mg tablet 20 mg PO UD 02/27/25 02/27/25 History Past Med/Surg History Problem List (Updated 02/27/25 @ 18:53 by Anel Dominguez DO) Hematuria (Acute) Radiation cystitis Anemia (Acute) History of pericardial effusion History of prostate cancer Gross hematuria (Acute) Anticoagulant long-term use (Acute) Hematuria (Acute) Leukocytosis, unspecified Bilateral edema of lower extremity (Acute) Cellulitis of leg, right (Acute) Acute gout Toe pain, right (Acute) Infected abrasion of second toe of right foot (Acute) Osteomyelitis (Acute) Chronic tophaceous gout of right foot Toe infection Complex sleep apnea syndrome Emphysema lung Witnessed episode of apnea Nocturnal hypoxemia CAD (coronary artery disease) (HFpEF) heart failure with preserved ejection fraction (Acute) SOBOE (shortness of breath on exertion) Right ventricular dysfunction Pulmonary HTN Atrial flutter with rapid ventricular response Acute heart failure with preserved ejection fraction Acute HF (heart failure) (Acute) Atrial fibrillation with RVR (Acute) Encounter for pre-operative examination Encounter for pre-operative examination White blood cell abnormality Atrial fibrillation Community acquired pneumonia Encounter for pre-operative examination 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 Weaver On anticoagulant therapy eliquis bid Food impaction of esophagus History of pneumonia AROUND TIME OF AFIB, ? SPRING 2020 "SHOULD BE IN MY RECORDS" Moderate aortic stenosis Bicuspid aortic valve Chronic ischemic heart disease Paroxysmal atrial fibrillation with rapid ventricular response Atrial fibrillation with rapid ventricular response ? SPRING 2020 "SHOULD BE IN MY RECORDS" NO HX CARDIOVERSION, POSSIBLE CAUSE PNEUMONIA PER PT Osteoarthritis Prostate cancer 5 yrs ago > radiation Myocardial Infarction 1993 > RCA > Atenolol and Lipitor for this Dyslipidemia Surgical History History of left cataract extraction (~03/28/21) History of esophagogastroduodenoscopy (EGD) last 06/14/21 @ [facility] for food bolus History of right cataract extraction History of cardiac cath X3 TOTAL 1993 NO STENT(S) , 1998 CATH DID NOT CONSENT FOR STENT...SECOND CATH IN 1998 STENT X1 History of colonoscopy History of tooth extraction History of total knee replacement left H/O heart artery stent 1998 > x1 > follows with Dr. Weaver Family History Brother Colon cancer Other No family history of adverse response to anesthesia Social History Smoking Status: Former smoker Tobacco Type: Declines Cigarettes Per Day: 2 PPD / Quit 50 years ago; Second Hand Exposure: No; Do You Dip or Chew Tobacco: No; Tobacco Cessation Education Requested by Patient: No Hx Alcohol Use: Yes Alcohol type: hard liquor Hx Substance Use: No Preferred Language: Bots[place] Communication Ability: Effective Financial Underwriter Required: No Beliefs That Will Affect Care: None Current Living Situation: Spouse Current Living Situation Comment: House with Spouse Other Information That Helps Us Care for You: No Feels Safe at Home: Yes Safety Concerns: Feels Safe At This Time Assistive Devices: None Review of Systems Review of Systems: see HPI Physical Exam Physical Exam: The patient is awake, alert and oriented 3, well developed and well nourished, normocephalic and atraumatic, in no acute distress. Non-toxic appearing. HEENT- EOMI, mucous membranes moist. Hearing grossly intact. Heart-normal S1 and S2. No murmurs, rubs or gallops. Lungs-clear bilaterally, no respiratory distress, no accessory muscle use. Abdomen-normal bowel sounds and soft. No ascites noted. Non-tender. Extremities- no clubbing, cyanosis, or edema. Rheumatologic-normal range of motion. Psychiatric-normal affect. Results & Data Results & Data Vital Signs (Past 12 Hours) Vital Signs Temp Pulse Pulse Resp BP BP Pulse Ox 02/27/25 16:59 88 17 92/60 L 97 02/27/25 13:44 36.8 C 110 H 17 103/71 97 02/27/25 13:34 96 O2 Del Method 02/27/25 16:59 Room Air 02/27/25 13:44 Room Air 02/27/25 13:34 Room Air Laboratory Results Reviewed CBC, CMP, UA Diagnostic Findings reviewed bladder ultrasound Medications Administered EDnone Code Status & VTE Plan Code Status full code VTE Prophylaxis Plan VTE Prophylaxis will be ordered: Yes Supervising Physician Co-Signing Physician Notes Patient seen and examined, chart reviewed, case discussed with ROLO Goldman and I agree with the assessment and plan as above Patient with hematuria following cystoscopy - known radiation cystitis. 1L bloody urine removed in the ER following straight cath Presently voiding without difficulty On exam he is resting comfortably, NAD Skin - no rash HEENT - MMM, neck supple Heart- +S1/S2, regular, no m/r/g Lungs - CTA Abd -soft, NT/ND Ext - warm, well perfused Labs and images reviewed Assessment/Plan -Holding Eliquis -Monitor UOP, bladder scan with straight cath as needed -Remainder as above PG Care Time/CCT Total # of Minutes Spent Total Time Spent with Patient: Total time spent is greater than 50% in coordination of care (as documented) at patient's floor/unit and/or counseling patient: Coding Level of Care Code 80343 INT INP/OBS CARE 3/75MIN Diagnoses Hematuria R31.9 Radiation cystitis N30.40 History of prostate cancer Z85.46 Anticoagulant long-term use Z79.01
--- NOTE | 2025-02-27 19:43 | Ultrasound Report ---
URINARY BLADDER ULTRASOUND: CLINICAL INDICATION: Hematuria COMPARISON: None TECHNIQUE: Focused real-time grayscale ultrasound and color Doppler interrogation of the urinary bladder was performed by the technologist and images were submitted for interpretation. FINDINGS: URINARY BLADDER: There is irregular wall thickening to the urinary bladder. Small quantity of debris is noted within the urinary bladder. IMPRESSION: Irregular wall thickening to the urinary bladder. This may be due to cystitis have cannot exclude a neoplastic process. If indicated, cystoscopy evaluation may be considered. Small quantity of debris is noted within the urinary bladder. Electronically signed by Dustin Melissa 02-27-2025 7:43 PM
[2025-02-27] MEDS: TAMSULOSIN HCL 0.4 MG CAP PO ONE (19:47)
[2025-02-27] MEDS ORDERED: POLYETHYLENE (MIRALAX) 17 GM PACK PO PRN (21:11)
[2025-02-27] MEDS ORDERED: ONDANSETRON INJ 2 MG/ML 2 ML VIAL IV PRN (21:11)
[2025-02-27] MEDS ORDERED: MELATONIN 3 MG TAB PO PRN (21:11)
[2025-02-27] MEDS ORDERED: DOCUSATE SODIUM 100 MG CAP PO PRN (21:11)
[2025-02-27] MEDS: ATORVASTATIN 40 MG TAB PO SCH (22:17)
[2025-02-28 07:22] LABS: Anion Gap 8.0 (3-11); Blood Urea Nitrogen 33.0 mg/dl (6-23); Calcium 8.3 mg/dl (8.6-10.3); Carbon Dioxide 26.0 mmol/L (21-32); Chloride 99.0 mmol/L (98-107); Creatinine Clr Calc Pharmacy 33.1 ml/min; Glucose 112.0 mg/dl (70-99(Fasting)); Potassium 4.2 mmol/L (3.5-5.1); Sodium 133.0 mmol/L (136-145)
[2025-02-28 07:23] LABS: Hematocrit (blood only) 24.2 % (42.0-52.0); Hemoglobin 7.7 g/dL (14.0-18.0); Mean Corpuscular Hemoglobin 27.2 pg (25.0-34.0); Mean Corpuscular Volume 85.5 fL (80.0-100.0); Platelet Count 114 K/uL (130-400); RDW Standard Deviation 55.8 fL (36.4-46.3); Red Blood Count 2.83 M/uL (4.70-6.10); White Blood Count 7.20 K/ul (4.8-10.8)
[2025-02-28] MEDS: SPIRONOLACTONE 12.5 MG TAB PO SCH (08:06)
[2025-02-28] MEDS: METOPROLOL SUCC 50MG EXT REL TAB PO SCH (08:07)
[2025-02-28] MEDS: TAMSULOSIN HCL 0.4 MG CAP PO SCH (08:07)
[2025-02-28] MEDS: UMECLIDINIUM/VILANTEROL 62.5/25MCG 7 PUFFS/INHALER INH SCH (08:08)
[2025-02-28] MEDS: EMPAGLIFLOZIN 10 MG TAB PO SCH (08:08)
[2025-02-28] MEDS ORDERED: TORSEMIDE 20 MG TAB PO SCH (09:00)
--- NOTE | 2025-02-28 10:12 | Urology Progress Note ---
Date of Service February 28, 2025 Assessment & Plan (1) Radiation cystitis: Plan: Afebrile 89M seen for management of gross hematuria with clots and radiation cystitis. Improving from urinary standpoint with flomax hydration and holding blood thinners. Hgb drop noted and vitals somewhat tenous and has not yet been OOB. - would consider blood transfusion if symptomatic dizziness tachycardia while OOB - oob with assistance and close monitoring to prevent fall high likelihood patient will be dizzy - recommend blood count this afternoon consider transfusion if dropping - would continue holding Eliquis 2 more days if urine clear can resume then but should stop if becomes bloody and call office for further direction - please continue flomax as outpatient - if labs stable and patient able to walk without hypotension/dizziness agree reasonable for dc today and outpatient foloow up (2) Hematuria: Admission and Anticipated Discharge Date Admission Date: February 27, 2025 Subjective doing well overnight no issues aside from dysuria, states urine flowing much easier now, has not yet been OOB but no dizziness or lightheadedness in bed though BP noted to be somewhat low with borderline tachycardia, has not been catheterized overnight Gen: NAD Psych: Alert and Oriented Abd: Nontender nondistended : ostomy bag in place on penis, bloody urine Results & Data Vital Signs (Past 12 Hours) Vital Signs Temp Pulse Pulse Resp BP Pulse Ox O2 Del Method 02/28/25 07:09 36.4 C L 96 H 16 90/52 L 100 CPAP 02/28/25 02:36 112 H 21 93 O2 Flow Rate 02/28/25 07:09 02/28/25 02:36 2 PG Care Time/CCT Total # of Minutes Spent Total Time Spent with Patient: Total time spent is greater than 50% in coordination of care (as documented) at patient's floor/unit and/or counseling patient: Coding Level of Care Code 37062 SUB INP/OBS CARE 2/35MIN Diagnoses Radiation cystitis N30.40 Hematuria R31.9
[2025-02-28] MEDS ORDERED: SODIUM CHLORIDE 0.9% 100 ML IV PRN (10:20)
--- NOTE | 2025-02-28 10:36 | Hospitalist Progress Note ---
"Date of Service February 28, 2025 Assessment & Plan (1) Hematuria: (2) Radiation cystitis: (3) History of prostate cancer: (4) Anticoagulant long-term use: Plan Patient is an 89-year-old male with a past medical history of prostate cancer s/p radiation 2015, HFpEF, A-fib on Eliquis, CAD, severe , pulmonary hypertension. Patient has had gross hematuria in the outpatient setting pain and underwent cystoscopy 02/27. Upon returning home he had sudden onset gross hematuria and came into the ED for evaluation. ED staff unable to place Ji catheter and patient retaining urine, resolved with straight cath. Patient evaluated by urology who recommended holding Eliquis, starting Flomax, trending laboratories. #Gross hematuria | Radiation cystitis - UA without signs of infection. Urology consulted - recommends holding Eliquis for 2 more days. If urine clears, can resume then, but should hold if hematuria returns and call urology office for further direction Hold Eliquis, last dose 02/27 AM Flomax started on admission, continue 0.4 mg every morning - Hgb dropped from 10.5 on admission to 7.7 With concurrent hypotension with BP 90/52 and mild tachycardia with HR 96. Informed consent obtained for blood transfusion - Transfuse 1 unit PRBC now. Trend H&H 2 hours post-transfusion Promote oral hydration; will avoid IVF with history of HFpEF and severe aortic stenosis Bladder scan as needed PRN. Straight cath PRN - patient did require straight cath x 1 on 02/28 Continue diuretics, Tylenol as needed for pain #HFpEFstable, no acute exacerbation. Continue Jardiance, spironolactone, torsemide #A-fibholding anticoagulation as above. Continue metoprolol and digoxin. #CADcontinue statin VTE ppx: SCDs, low risk and holding Eliquis with hematuria Dispo: continued inpatient stay to monitor hgb level. Anticipate discharge home tomorrow 03/01 Ordered blood transfusion Discussed plan with urology Admission and Anticipated Discharge Date Admission Date: February 27, 2025 Supervising Physician Co-Signing Physician Notes Attending Attestation - Chart reviewed, care plan d/w CHAVEZ Akins. I agree w/ the ruiz components of her documentation with the following addition: * acute blood loss anemia 2nd to gross hematuria/XRT cystitis Tonny Rubio MD Subjective Patient seen and evaluated at bedside. He reports feeling well overall. He is voiding without difficulty and has not had further urinary retention since his straight catheterization yesterday evening. He reports some dysuria, which is to be expected following his urological procedure yesterday. We discussed that his hemoglobin level dropped from 10.5 to 7.7 this morning. He is also hypotensive with mild tachycardia, so a blood transfusion was discussed and recommended. Informed consent obtained. He denies any lightheadedness or dizziness, but also has not been out of bed yet today. He denies any chest pain or shortness of breath. No additional complaints or concerns at this time. Physical Exam Physical Exam: General: No acute distress, nondiaphoretic, well-developed, well-nourished. Skin: Warm, dry. No rashes or peripheral edema noted. Cardiac: Regular rate and rhythm without murmurs gallops or rubs. Pulm: Clear to auscultation bilaterally without wheezes, rales or rhonchi. Normal respiratory effort. Abdominal: Soft, nontender, nondistended. Bowel sounds present. : Ostomy bag in place on penisgross hematuria noted in bag, no clots noted. Neuro: A&O x3. No focal neurological deficits. Results & Data Results & Data Vital Signs (Past 12 Hours) Vital Signs Temp Pulse Pulse Resp BP Pulse Ox O2 Del Method 02/28/25 07:09 97.5 F L 96 H 16 90/52 L 100 CPAP 02/28/25 02:36 112 H 21 93 O2 Flow Rate 02/28/25 07:09 02/28/25 02:36 2 Laboratory Results Reviewed CBC with differential, BMP, UA, type and screen PG Care Time/CCT Total # of Minutes Spent Total Time Spent with Patient: Total time spent is greater than 50% in coordination of care (as documented) at patient's floor/unit and/or counseling patient: Coding Level of Care Code 77065 SUB INP/OBS CARE 3/50MIN Diagnoses Hematuria R31.9 Radiation cystitis N30.40 History of prostate cancer Z85.46 Anticoagulant long-term use Z79.01"
[2025-02-28] MEDS: ACETAMINOPHEN 325 MG TAB PO PRN (11:49)
[2025-02-28] MEDS: PHENAZOPYRIDINE HCL 100 MG TAB PO PRN (12:40)
[2025-02-28] MEDS: DIGOXIN 0.125 MG TAB PO SCH (16:20)
[2025-02-28 17:39] LABS: Hematocrit (blood only) 30.4 % (42.0-52.0); Hemoglobin 9.6 g/dL (14.0-18.0)
[2025-03-01] MEDS: COUGH DROP (SUGAR FREE) LOZ 24 LOZ/1 BOX BUCCAL ONE (04:18)
[2025-03-01 06:08] LABS: Hematocrit (blood only) 26.1 % (42.0-52.0); Hemoglobin 8.5 g/dL (14.0-18.0); Mean Corpuscular Hemoglobin 28.0 pg (25.0-34.0); Mean Corpuscular Volume 85.9 fL (80.0-100.0); Platelet Count 127 K/uL (130-400); RDW Standard Deviation 53.4 fL (36.4-46.3); Red Blood Count 3.04 M/uL (4.70-6.10); White Blood Count 8.27 K/ul (4.8-10.8)
[2025-03-01 06:23] LABS: Anion Gap 10.0 (3-11); Blood Urea Nitrogen 35.0 mg/dl (6-23); Calcium 8.6 mg/dl (8.6-10.3); Carbon Dioxide 24.0 mmol/L (21-32); Chloride 97.0 mmol/L (98-107); Creatinine Clr Calc Pharmacy 33.1 ml/min; Glucose 125.0 mg/dl (70-99(Fasting)); Potassium 4.3 mmol/L (3.5-5.1); Sodium 131.0 mmol/L (136-145)
--- NOTE | 2025-03-01 12:19 | Procedure Note ---
Procedure Note Date of Service March 01, 2025 SURGEON: Dr. Parsons DRY CHAIN PULLER: N/A PREOPERATIVE DIAGNOSIS: urinary retention, gross hematuria, difficult catheter placement POSTOPERATIVE DIAGNOSIS: hematuria urethral false passage PROCEDURE: Flexible Cystourethroscopy FINDINGS: 1. urethral false passage ANESTHESIA: none ESTIMATED BLOOD LOSS: N/A TUBES AND DRAINS: none SPECIMENS: none COMPLICATIONS: none INDICATIONS FOR PROCEDURE: See preoperative diagnosis OPERATIVE DETAIL: The patient was prepped and draped in the usual fashion in his hospital bed. A well lubricated flexible cystoscope was inserted into the urethral meatus and advanced into the bladder. Care was taken to keep the lumen in the center of view and to navigate several false passages. Eventually I was able to traverse the true lumen and enter the bladder. Through cystoscopy was deferred in setting recent eoffice cysto A straight sensor wire was placed and the scope removed a 16 fr [place] catheter was then placed over the wire and returned bloody urine, the catheter was irrigated and noted several clots then clearer output. All parts of the cystoscope and all instruments were removed intact from the patient. The patient tolerated the procedure well. Please note thatI was present throughout the procedure. PLAN: - maintain thomas x 1 week pending outpatient assessment - continue flomax - hold eliquis until urine clearing up then can resume Coding Additional Codes Date of Service ([facility].SURGERY)
--- NOTE | 2025-03-01 13:13 | Hospitalist Progress Note ---
"Date of Service March 01, 2025 Assessment & Plan (1) Hematuria: (2) Radiation cystitis: (3) History of prostate cancer: (4) Anticoagulant long-term use: (5) Acute blood loss anemia: Plan Patient is an 89-year-old male with a past medical history of prostate cancer s/p radiation 2014, HFpEF, A-fib on Eliquis, CAD, severe , pulmonary hypertension. Patient has had gross hematuria in the outpatient setting pain and underwent cystoscopy 02/27. Upon returning home he had sudden onset gross hematuria and came into the ED for evaluation. ED staff unable to place Ji catheter and patient retaining urine, resolved with straight cath. Patient evaluated by urology who recommended holding Eliquis, starting Flomax, trending laboratories. #Gross hematuria | Radiation cystitis - UA without signs of infection. - Urology consulted - placed 16 fr wainwright catheter on 03/01. Recommends maintaining catheter x 1 week. Recommends holding Eliquis until urine clears, can resume then, but should hold if hematuria returns and call urology office for further direction - Hgb dropped from 10.5 on admission to 7.7 with concurrent hypotension with BP 90/52 and mild tachycardia with HR 96. S/p 1 unit PRBC 02/28 - hgb augmented appropriately and remains stable at 8.5 - Suspect tachycardia is in responses to ABLA - Hold Eliquis, last dose 02/27 AM - Flomax started on admission, continue 0.4 mg every morning - Bladder scan as needed - Continue diuretics, Tylenol as needed for pain #HFpEF stable, no acute exacerbation. Continue Jardiance, spironolactone, torsemide #A-fib holding anticoagulation as above. Continue metoprolol and digoxin. #CAD continue statin VTE ppx: SCDs, low risk and holding Eliquis with hematuria Dispo: Anticipate discharge home tomorrow 03/02 if no further issues with catheter. Discussed plan with urology Admission and Anticipated Discharge Date Admission Date: February 27, 2025 Supervising Physician Co-Signing Physician Notes Attending Attestation - Chart reviewed, care plan d/w CHAVEZ Akins. I agree w/ the ruiz components of her documentation with the following addition: * acute blood loss anemia 2nd to gross hematuria/XRT cystitis Tachycardia - check EKG - r/o a.fib/flutter. Tonny Rubio MD Subjective Patient seen and evaluated at bedside. He reports feeling tired as he was awake most of the night. He had a wainwright catheter placed by urology earlier due to ongoing issues with his Ji. His urine has been draining without difficulty since then. He would prefer to stay overnight in the hospital to ensure his catheter continues to drain well - this is reasonable. We discussed that his hemoglobin level remained stable today. No additional complaints or concerns at this time. Physical Exam Physical Exam: General: No acute distress, nondiaphoretic, well-developed, well-nourished. Skin: Warm, dry. No rashes or peripheral edema noted. Cardiac: Tachycardic rate in 100s and regular rhythm without murmurs gallops or rubs. Pulm: Clear to auscultation bilaterally without wheezes, rales or rhonchi. Normal respiratory effort. 94% on room air. Abdominal: Soft, nontender, nondistended. Bowel sounds present. : Catheter draining hematuria - improved compared to yesterday. Neuro: A&O x3. No focal neurological deficits. Results & Data Results & Data Vital Signs (Past 12 Hours) Vital Signs Temp Pulse Resp BP Pulse Ox O2 Del Method 03/01/25 07:39 97.7 F 108 H 20 97/60 L 94 Room Air Laboratory Results Reviewed CBC, BMP PG Care Time/CCT Total # of Minutes Spent Total Time Spent with Patient: Total time spent is greater than 50% in coordination of care (as documented) at patient's floor/unit and/or counseling patient: Coding Level of Care Code 39012 SUB INP/OBS CARE 3/50MIN Diagnoses Hematuria R31.9 Radiation cystitis N30.40 History of prostate cancer Z85.46 Anticoagulant long-term use Z79.01 Acute blood loss anemia D62"
[2025-03-02 06:47] LABS: Hematocrit (blood only) 27.0 % (42.0-52.0); Hemoglobin 8.4 g/dL (14.0-18.0); Mean Corpuscular Hemoglobin 26.9 pg (25.0-34.0); Mean Corpuscular Volume 86.5 fL (80.0-100.0); Platelet Count 146 K/uL (130-400); RDW Standard Deviation 55.4 fL (36.4-46.3); Red Blood Count 3.12 M/uL (4.70-6.10); White Blood Count 9.30 K/ul (4.8-10.8)
[2025-03-02 07:16] LABS: Iron 24.0 mcg/dl (35-175); Total Iron Binding Cap Calc 392.0 mcg/dl (250-450); Transferrin 280.0 mg/dl (200-360); Transferrin (FE) Percent Satur 6.0 % (20-50)
[2025-03-02 07:17] LABS: Anion Gap 10.0 (3-11); Blood Urea Nitrogen 34.0 mg/dl (6-23); Calcium 8.5 mg/dl (8.6-10.3); Carbon Dioxide 22.0 mmol/L (21-32); Chloride 100.0 mmol/L (98-107); Creatinine Clr Calc Pharmacy 32.0 ml/min; Glucose 138.0 mg/dl (70-99(Fasting)); Potassium 4.7 mmol/L (3.5-5.1); Sodium 132.0 mmol/L (136-145)
[2025-03-02 07:37] LABS: Ferritin 69.6 ng/ml (8-388)
[2025-03-02] MEDS: IRON SUCROSE 300 MG in SODIUM CHLORIDE 0.9% 250 ML IV ONE (09:35)
--- NOTE | 2025-03-02 10:23 | Urology Progress Note ---
Date of Service March 01, 2025 Assessment & Plan (1) Acute blood loss anemia: Plan: Afebrile 89M seen for management of gross hematuria with clots and radiation cystitis. Improving from urinary standpoint with flomax hydration and holding blood thinners. Hgb drop noted managed with transfusion. Catheter issues overnight and this am eventually requiring further cystoscopy complex catheter placement due to false passages. - oob with assistance and close monitoring to prevent fall high likelihood patient will be dizzy - blood counts stable - would continue holding Eliquis 2 more days if urine clear can resume then but should stop if becomes bloody and call office for further direction - please continue flomax as outpatient - if labs stable and patient able to walk without hypotension/dizziness agree reasonable for dc today and outpatient follow up (2) Hematuria: (3) Radiation cystitis: (4) Difficult Ji catheter placement: Admission and Anticipated Discharge Date Admission Date: February 27, 2025 Subjective doing ok, overnight had some more issues voiding eventually was straight cather with difficulty by nursing staff for elevated pvr, thereafter 18 fr coude placed again with difficulty, patient very uncomfortable with same catheter initially draining then not so much and again with elevated bladder scan despite catheter in place unable to irrigate clot, Gen: Anxious Psych: Alert and Oriented Abd: Tender to SP palpation distended : circumcised male, catheter in place but not mobile and appears may have been pulled back into urethra, urine bloody unable to irrigate, testes nontender no masses, catheter removed with difficulty appears was in urethra not bladder, patient tried to void unable to do so and uncomfortable, attempted coude catheter placement unable to do so so resistance in urethra, ?false passage. Attempted blind placement guidewire unable to get coil in bladder or confirm placement by aspirating over 5 fr open ended. Therefore aborted further attempts in favor cystoscopy with direct visualization to place wire in true lumen and catheter over wire, see that separate dictation Results & Data Vital Signs (Past 12 Hours) Vital Signs Temp Pulse Resp BP Pulse Ox O2 Del Method 03/01/25 07:39 36.5 C 108 H 20 97/60 L 94 Room Air PG Care Time/CCT Total # of Minutes Spent Total Time Spent with Patient: Total time spent is greater than 50% in coordination of care (as documented) at patient's floor/unit and/or counseling patient: Coding Level of Care Code 06729 SUB INP/OBS CARE 350MIN Diagnoses Acute blood loss anemia D62 Hematuria R31.9 Radiation cystitis N30.40 Difficult Ji catheter placement T83.9XXA
[2025-03-02 12:10] VITALS: PULSE 92; RESP 20; TEMP 97.7; O2SAT 99
--- NOTE | 2025-03-02 12:48 | Urology Progress Note ---
<Statement entered by Jeff Parsons MD - 03/02/25 15:47> Chart reviewed plan reviewed and agree as written. Date of Service March 02, 2025 Assessment & Plan (1) Acute blood loss anemia: (2) Hematuria: (3) Radiation cystitis: (4) Difficult Thomas catheter placement: Plan 89yo male with history of prostate cancer s/p radiation 2015 admitted with gross hematuria. Had developed catheter issues yesterday eventually requiring bedside cystoscopy complex catheter placement due to false passage by Dr. Parsons. - He is afebrile and hemodynamically stable - Labs- WBCs 9.30, hemoglobin 8.4, creatinine 1.56 - Thomas intact and draining dark tea colored urine - Has had some intermittent leakage around catheter and bladder/penile discomfort, suspect bladder spasms - Monitor catheter output, can hand irrigate as needed for clots/obstruction - Continue Flomax - Consider oxybutynin and pyridium prn bladder spasms - Eliquis on hold, can likely resume tomorrow if urine is clear but would need to stop if becomes bloody/clots - Pt reassessed - Having spasms/leakage, was bladder scanned for 5ml - Catheter draining light red urine without clot - Continue pyridium and oxybutynin prn - Maintain thomas catheter - Urology will follow Admission and Anticipated Discharge Date Admission Date: March 01, 2025 Subjective Patient seen at bedside this morning. Awake and sitting up in bed on arrival. No acute distress. Thomas intact and draining dark tea colored urine. No c/o pain at present. Does report some intermittent bladder/penile discomfort and leakage around the catheter. Review of Systems Constitutional: as per Subjective / HPI Genitourinary: + as per Subjective / HPI Physical Exam Constitutional: no acute distress Respiratory: no respiratory distress and no labored breathing Neurologic: awake Psychiatric: A+Ox3, euthymic affect Genitourinary: Thomas intact Results & Data Vital Signs (Past 12 Hours) Vital Signs Temp Pulse Pulse Resp BP BP Pulse Ox 03/02/25 12:07 36.5 C 92 H 20 95/62 L 99 03/02/25 08:18 116 H 101/64 03/02/25 08:00 03/02/25 07:59 36.3 C L 100 H 18 92/55 L 96 O2 Del Method 03/02/25 12:07 Room Air 03/02/25 08:18 03/02/25 08:00 Room Air 03/02/25 07:59 Room Air PG Care Time/CCT Total # of Minutes Spent Total Time Spent with Patient: Total time spent is greater than 50% in coordination of care (as documented) at patient's floor/unit and/or counseling patient: Coding Level of Care Code 93372 SUB INP/OBS CARE 2/35MIN Diagnoses Acute blood loss anemia D62 Hematuria R31.9 Radiation cystitis N30.40 Difficult Thomas catheter placement T83.9XXA
--- NOTE | 2025-03-02 15:26 | Discharge Summary ---
"Discharge Summary Date of Service March 02, 2025 Principal Dx & Hospital Course #1 = Principal Diagnosis (1) Hematuria: (2) Radiation cystitis: (3) History of prostate cancer: (4) Anticoagulant long-term use: (5) Acute blood loss anemia: Plan Patient is an 89-year-old male with a past medical history of prostate cancer s/p radiation 2014, HFpEF, A-fib on Eliquis, CAD, severe , pulmonary hypertension. Patient has had gross hematuria in the outpatient setting pain and underwent cystoscopy 02/27. Upon returning home he had sudden onset gross hematuria and came into the ED for evaluation. ED staff unable to place Thomas catheter and patient retaining urine, resolved with straight cath. Patient evaluated by urology who recommended holding Eliquis, starting Flomax, trending laboratories. #Gross hematuria | Radiation cystitis - UA without signs of infection. Hgb dropped from 10.5 on admission to 7.7 with concurrent hypotension with BP 90/52 and mild tachycardia with HR 96. S/p 1 unit PRBC 02/28 - hgb augmented appropriately and remains stable at 8.5. Iron studies consistent with DARA - venofer given x 1. Urology consulted - placed 16 fr tonkawa catheter on 03/01. Recommends maintaining catheter x 1 week. Recommends holding Eliquis until urine clears, can resume then, but should hold if hematuria returns and call urology office for further direction. Suspect leaking is related to spasms - vesicare started. Continue flomax. Pain control - tylenol and pyridium #HFpEF stable, no acute exacerbation. Continue Jardiance, spironolactone, torsemide #A-fib holding anticoagulation as above. Continue metoprolol and digoxin. #CAD continue statin Dispo: discharge to home today, urology follow up Discussed plan with urology [place], Rosita Notes For Next Care Provider Medication Changes From Visit flomax vesicare dialy Admission HPI Per Admitting Provider Patient is an 89-year-old male with a past medical history of prostate cancer s/p radiation 2014, HFpEF, A-fib on Eliquis, CAD, severe AAS, pulmonary hypertension. Patient has had gross hematuria in the outpatient setting pain and underwent cystoscopy 02/27. Upon returning home he had sudden onset gross hematuria and came into the ED for evaluation. ED staff unable to place Thomas catheter and patient retaining urine, resolved with straight cath. Patient evaluated by urology who recommended holding Eliquis, starting Flomax, trending laboratories. Patient seen at bedside with his and daughter present. He stated he went home from his cystoscopy and was losing a lot of blood via his urine. He does endorse passing some clots. He denies any dizziness, lightheadedness, chest pain, shortness of breath, abdominal pain. He stated he does have some dysuria after the cystoscopy and catheter in the ED. He stated he had the cystoscopy because he had some hematuria previously which was resolved however he was still recommended for the scope given his history of prostate cancer and radiation. He stated that the scope looked okay and there was no concern. He denies nicotine use. He does endorse drinking 1 shot of liquor per day with dinner. He is due for his evening medications. He wishes to be full code. He is hopeful for discharge home in the morning if he remains stable. Discharge Exam General: NAD, VS as above Resp: normal respiratory effort, lungs clear to auscultation CV: RRR, no murmur, Abd: normal bowel sounds, soft, mild suprapubic tenderness Neuro: A&O x3, Skin: intact, no lesions noted Discharge Plan Discharge Items Patient Disposition: Home - Self-Care Reason For Visit: hematuria after cytoscopy, urinary retention Discharge Diagnosis: hematuria Condition on Discharge: Fair Activity: Resume your previous activity Non-emergency contact: Primary Care Provider Call non-emergency contact if: you have any medication questions Follow-up/Referrals: Alejandro Hewitt MD [Physician] - (keep thomas in place until follow up ) El Calabrese MD [Primary Care Provider] - (follow up within on week ) Diet: Heart Healthy Addtl Attending Provider Instructions: Mr. Bennett, You were hospitalized after having hematuria and urinary difficulties after recent cystocopy. You were seen by Urology and had a 16 fr tonkawa catheter arin negro. This is to remain in place until you are seen by urology again. Your bleeding was likely exacerbated by your Eliquis - this was placed on hold. You were also given one unit of blood and a dose of IV iron to help with you blood counts. If you urine is clear/yellow tomorrow 03/03 you can resume your Eliquis if not, reeval on 03/05. If not clear/yellow by 03/06 call the urology office. As discusesed with urology, you may continue to have some leakage from the catheter due to spasms - for this vesicare has been started. You are also started on flomax to help with emptying with the catheter. As needed Pyridium has been prescribed that can help with dysuria. Activity: You can do normal everyday activities as your body allows. Take rest breaks if you feel tired. Do not overexert. Stop activity if you have pain, shortness of breath or feel dizzy. Follow-up appointments: Make an appointment with your primary care physician within one week of discharge. A copy of this summary will be sent to them. Every time you see your primary care physician, or any other doctor, bring your medication list, and a list of questions. CONTACT YOUR PRIMARY CARE PROVIDER if you experience any of the following: Shortness of breath or difficulty breathing Fevers or chills Feeling tired with normal activity or experiencing dizziness or fainting Difficulty following your treatment plan, or difficulty taking medications CALL 911 OR GO TO THE EMERGENCY DEPARTMENT if you experience any of the following: Severe abdominal pain or nausea/vomiting Severe chest pain, or chest pain that radiates (moves) to your jaw or arm Sudden, severe shortness of breath or difficulty breathing CALL UROLOGY Large clots in catheter Inability to empty severe pain Thank you for allowing us to participate in your care. Pending Studies at Discharge: No Stand-Alone Forms: My [facility] LEAFER, Smoking Cessation Medications and DC Order Prescriptions: New tamsulosin 0.4 mg Capsule 0.4 mg PO QAM Qty: 14 0RF phenazopyridine [Pyridium] 100 mg Tablet 100 mg PO TID PRN (Reason: dysuria ) Qty: 6 0RF solifenacin [Vesicare] 5 mg tablet 5 mg PO DAILY Qty: 14 0RF Continued Jardiance 10 mg tablet 10 mg PO QAM Qty: 90 3RF digoxin 125 mcg (0.125 mg) tablet 125 mcg PO 3XWK Rx Instructions: Sunday//Sunday mecobalamin (vitamin B12) 1,000 mcg tablet,disintegrating 1,000 mcg sublingual DAILY Patient Comments: 02/26- otc unable to verify Rx Instructions: place tablet under tongue and allow to dissolve for at least30 secs before swallowing umeclidinium-vilanterol [Anoro Ellipta] 62.5-25 mcg/actuation blister with device 1 inh inhalation QAM Probiotic 15 billion cell capsule, sprinkle 2 cap PO DAILY Patient Comments: 02/26- otc unable to verify Rx Instructions: do not crush/chew/cut; swallow whole OR may open and sprinkle in cold drink/food atorvastatin [Lipitor] 40 mg Tablet 40 mg PO HS allopurinol 300 mg tablet 0 mg PO QAM Patient Comments: 02/27-last filled 12/19 30 day supply #30 metoprolol succinate 50 mg Tablet Extended Release 24 Hr 50 mg PO DAILY 30 Days Qty: 30 0RF PreserVision AREDS-2 250-90-40-1 mg Capsule 1 tab PO BID Patient Comments: 02/26- otc unable to verify spironolactone 25 mg tablet 12.5 mg PO QAM torsemide 20 mg tablet 20 mg PO UD Rx Instructions: May increase to daily as needed for weight gain, shortness of breath, edema. Held apixaban 5 mg tablet 5 mg PO BID Qty: 60 0RF Hold Instructions: Provider's Order - resume when urine is clear Discharge Orders: Discharge Order (Routine); Ordered 03/02/25 Ordered By: Felicia Partida/Other Patient Handouts: ED Blood in the Urine Admission Data Admit Date/Time: 03/01/25 13:13 Attending Provider: Tonny Rubio Admit Provider: Ariana Harmon Primary Care Provider: El Calabrese Other Providers: Jeff Parsons; [facility] Fax Other Interventions: Discharge Summary Assessment (RN) Last Done: 03/02/25 15:36 Hospital Stay Data Consultations 02/27/25 21:11 Consult Urology Routine Diagnostic Imagining Performed Bladder Ultrasound 02/27/25 16:15 URINARY BLADDER ULTRASOUND: CLINICAL INDICATION: Hematuria COMPARISON: None TECHNIQUE: Focused real-time grayscale ultrasound and color Doppler interrogation of the urinary bladder was performed by the technologist and images were submitted for interpretation. FINDINGS: URINARY BLADDER: There is irregular wall thickening to the urinary bladder. Small quantity of debris is noted within the urinary bladder. IMPRESSION: Irregular wall thickening to the urinary bladder. This may be due to cystitis have cannot exclude a neoplastic process. If indicated, cystoscopy evaluation may be considered. Small quantity of debris is noted within the urinary bladder. Electronically signed by Dustin Melissa 02-27-2025 7:43 PM Pending Results Patient Have Any Pending Studies at Discharge: No Discharge Instructions Given to Patient (Per Discharging Provider) Mr. Bennett, Ritesh were hospitalized after having hematuria and urinary difficulties after recent cystocopy. You were seen by Urology and had a 16 fr tonkawa catheter placed. This is to remain in place until you are seen by urology again. Your bleeding was likely exacerbated by your Eliquis - this was placed on hold. You were also given one unit of blood and a dose of IV iron to help with you blood counts. If you urine is clear/yellow tomorrow 03/03 you can resume your Eliquis if not, reeval on 03/05. If not clear/yellow by 03/06 call the urology office. As discusesed with urology, you may continue to have some leakage from the catheter due to spasms - for this vesicare has been started. You are also started on flomax to help with emptying with the catheter. As needed Pyridium has been prescribed that can help with dysuria. Activity: You can do normal everyday activities as your body allows. Take rest breaks if you feel tired. Do not overexert. Stop activity if you have pain, shortness of breath or feel dizzy. Follow-up appointments: Make an appointment with your primary care physician within one week of discharge. A copy of this summary will be sent to them. Every time you see your primary care physician, or any other doctor, bring your medication list, and a list of questions. CONTACT YOUR PRIMARY CARE PROVIDER if you experience any of the following: Shortness of breath or difficulty breathing Fevers or chills Feeling tired with normal activity or experiencing dizziness or fainting Difficulty following your treatment plan, or difficulty taking medications CALL 911 OR GO TO THE EMERGENCY DEPARTMENT if you experience any of the following: Severe abdominal pain or nausea/vomiting Severe chest pain, or chest pain that radiates (moves) to your jaw or arm Sudden, severe shortness of breath or difficulty breathing CALL UROLOGY Large clots in catheter Inability to empty severe pain Thank you for allowing us to participate in your care. Total Time Total Time Spent Total Time Spent (In Minutes): Time spent day of discharge 45 minutes including direct patient care, medication reconciliation, documentation, review of labs and images, and coordination of care. Coding Level of Care Code 21296 INP/OBS DISCH >30 MIN Diagnoses Hematuria R31.9 Radiation cystitis N30.40 History of prostate cancer Z85.46 Anticoagulant long-term use Z79.01 Acute blood loss anemia D62"
[2025-03-02 15:38] VITALS: BP 101/64
== END 2025-03-02 16:39 | disposition home or self-care (01) | DRG 699 ==
LOC: ED 13:34 → 3N 13:34 → SUATTDRO 19:41 → 3N 20:50